=== PATIENT | male | born 1940 | race Caucasian/White ===

== ENCOUNTER 2017-12-09 20:48 | Inpatient (IN) | payer MEDICARE ==
[2017-12-09] MEDS ORDERED: IPRATROPIUM-ALBUTEROL 3 ML NEB INHALATION STA (21:46)
[2017-12-09] MEDS ORDERED: methylPREDNISolone SOD SUCCI 125 MG/2 ML VIAL IV STA (21:46)
--- NOTE | 2017-12-09 22:01 | ED ---
SOB HPI - General Chief Complaint: Shortness of Breath Stated Complaint: Pneumonia Time Seen by Provider: 12/09/17 21:31 Source: patient, Caregiver Mode of arrival: wheelchair Limitations: no limitations, physical limitation - History of Present Illness Initial Comments: 77-year-old male patient with past medical history significant for acute hypoxic respiratory failure, recent admission for pneumonia, heart failure, and myocardial infarction presents to the emergency department today for complaints of dyspnea. Patient states that he was released approximately one month ago from [facility] after being admitted for 1 month for pneumonia and respiratory failure. Patient states he did have MRSA positive sputum. Patient states for the last 2 weeks he has developed fevers, night sweats, and difficulty breathing. Patient states he is unable to lie flat due to shortness of breath. States that he does have stabbing chest pains that is relieved with ibuprofen. He is also reporting feeling fatigued and weak. Patient states he did go to urgent care today and had a chest x-ray, they told him that he had fluid on his lungs and pneumonia and presented to the emergency department. Patient denies any recent rash, shortness breath, abdominal pain, nausea, vomiting, diarrhea, constipation, back pain, numbness, tingling, dizziness, hematuria, dysuria, urinary urgency, urinary frequency, headache, visual changes , or any other complaints. - Related Data Home Medications Medication Instructions Recorded Confirmed Albuterol Nebulized [Ventolin 2.5 mg INHALATION Q6H 12/09/17 12/09/17 Nebulized] Ascorbic Acid [Vitamin C] 500 mg PO DAILY 12/09/17 12/09/17 Aspirin 81 mg PO DAILY 12/09/17 12/09/17 Finasteride [Proscar] 5 mg PO DAILY 12/09/17 12/09/17 Folic Acid 1 mg PO DAILY 12/09/17 12/09/17 Furosemide [Lasix] 20 mg PO DAILY 12/09/17 12/09/17 Meloxicam 15 mg PO DAILY 12/09/17 12/09/17 Tamsulosin HCl [Flomax] 0.4 mg PO DAILY 12/09/17 12/09/17 Allergies Allergy/AdvReac Type Severity Reaction Status Date / Time No Known Allergies Allergy Verified 12/09/17 21:04 Review of Systems ROS Statement: Those systems with pertinent positive or pertinent negative responses have been documented in the HPI. ROS Other: All systems not noted in ROS Statement are negative. Past Medical History Past Medical History: Heart Failure, Myocardial Infarction ([place]) Additional Past Medical History / Comment(s): resp failure, dvt, anemia History of Any Multi-Drug Resistant Organisms: MRSA Date of last positivie culture/infection: lungs 2018 Past Surgical History: No Surgical Hx Reported Past Psychological History: No Psychological Hx Reported Smoking Status: Never smoker Past Alcohol Use History: None Reported Past Drug Use History: None Reported - Past Family History Father History Unknown: Yes General Exam Limitations: no limitations, physical limitation General appearance: alert, in no apparent distress, other (This is a well- developed, well-nourished adult male patient in no acute distress. Vital signs upon presentation are temperature 98.7F, pulse 109, respirations 20, blood pressure 112/68, pulse ox 96% on room air.) Eye exam: Present: normal appearance, PERRL, EOMI. Absent: scleral icterus, conjunctival injection, periorbital swelling ENT exam: Present: normal exam, normal oropharynx, mucous membranes moist Respiratory exam: Present: respiratory distress, rales. Absent: normal lung sounds bilaterally, wheezes, rhonchi, stridor Cardiovascular Exam: Present: regular rate, normal rhythm, normal heart sounds. Absent: systolic murmur, diastolic murmur, rubs, gallop, clicks GI/Abdominal exam: Present: soft, normal bowel sounds. Absent: distended, tenderness, guarding, rebound, rigid Extremities exam: Present: full ROM, normal capillary refill, other (Bilateral lower extremity edema. 2+ pitting.). Absent: normal inspection, tenderness, pedal edema, joint swelling, calf tenderness Neurological exam: Present: alert, oriented X3, CN II-XII intact Psychiatric exam: Present: normal affect, normal mood Skin exam: Present: warm, dry, intact, normal color. Absent: rash Course Vital Signs 12/09/17 12/09/17 12/09/17 20:58 22:38 22:44 Temperature 98.7 F Pulse Rate 109 H 100 104 H Respiratory 20 Rate Blood Pressure 112/68 O2 Sat by Pulse 96 Oximetry 12/09/17 12/10/17 23:04 01:29 Temperature 98.1 F Pulse Rate 98 101 H Respiratory 26 H 20 Rate Blood Pressure 116/56 125/67 O2 Sat by Pulse 98 95 Oximetry Medical Decision Making - Medical Decision Making 77-year-old male patient presents the emergency department today for evaluation of shortness of breath and cough. Patient states he is also been feeling weak and fatigued. Patient was recently [facility] for pneumonia with MRSA positive sputum. States he was also anemic at that hospital and they were evaluating the cause. He was discharged 4 weeks ago. Labs today reveal a hemoglobin of 8.2 but other labs are relatively unremarkable. Chest x-ray did show pulmonary vascular congestion and blunting of the costophrenic angles consistent with congestive heart failure. There was also some concern for lower lobe pneumonia. Given patient's recent history we will start pneumonia with coverage for HCAP. We will give a dose of Lasix here in the department. Pulmonology and cardiology will be consulted. Patient is admitted to Dr. Chaney. Patient is aware plan and is agreeable. - Lab Data Result diagrams: 12/09/17 22:25 12/09/17 22:25 Lab Results 12/09/17 12/09/17 12/09/17 Range/Units 22:25 22:25 22:25 WBC 10.5 (3.8-10.6) k/uL RBC 3.44 L (4.30-5.90) m/uL Hgb 8.2 L (13.0-17.5) gm/dL Hct 27.0 L (39.0-53.0) % MCV 78.5 L (80.0-100.0) fL MCH 23.7 L (25.0-35.0) pg MCHC 30.2 L (31.0-37.0) g/dL RDW 17.5 H (11.5-15.5) % Plt Count 415 (150-450) k/uL Neutrophils % 61 % Lymphocytes % 11 % Monocytes % 6 % Eosinophils % 19 % Basophils % 1 % Neutrophils # 6.4 (1.3-7.7) k/uL Lymphocytes # 1.1 (1.0-4.8) k/uL Monocytes # 0.7 (0-1.0) k/uL Eosinophils # 2.0 H (0-0.7) k/uL Basophils # 0.1 (0-0.2) k/uL Hypochromasia Moderate Poikilocytosis Slight Anisocytosis Slight Microcytosis Slight PT (9.0-12.0) sec INR (<1.2) APTT (22.0-30.0) sec Sodium 141 (137-145) mmol/L Potassium 3.9 (3.5-5.1) mmol/L Chloride 108 H (98-107) mmol/L Carbon Dioxide 25 (22-30) mmol/L Anion Gap 8 mmol/L BUN 18 (9-20) mg/dL Creatinine 0.86 (0.66-1.25) mg/dL Est GFR (CKD-EPI)AfAm >90 (>60 ml/min/1.73 sqM) Est GFR (CKD-EPI)NonAf 83 (>60 ml/min/1.73 sqM) Glucose 119 H (74-99) mg/dL Plasma Lactic Acid Oli (0.7-2.0) mmol/L Calcium 8.7 (8.4-10.2) mg/dL Total Bilirubin 0.2 (0.2-1.3) mg/dL AST 32 (17-59) U/L ALT 37 (21-72) U/L Alkaline Phosphatase 52 (38-126) U/L Total Creatine Kinase 23 L (55-170) U/L CK-MB (CK-2) 1.0 (0.0-2.4) ng/mL CK-MB (CK-2) Rel Index 4.3 Troponin I <0.012 (0.000-0.034) ng/mL NT-Pro-B Natriuret Pep pg/mL Total Protein 6.3 (6.3-8.2) g/dL Albumin 2.9 L (3.5-5.0) g/dL Urine Color Urine Appearance (Clear) Urine pH (5.0-8.0) Ur Specific [place] (1.001-1.035) Urine Protein (Negative) Urine Glucose (UA) (Negative) Urine Ketones (Negative) Urine Blood (Negative) Urine Nitrite (Negative) Urine Bilirubin (Negative) Urine Urobilinogen (<2.0) mg/dL Ur Leukocyte Esterase (Negative) 12/09/17 12/09/17 12/09/17 Range/Units 22:25 22:25 22:25 WBC (3.8-10.6) k/uL RBC (4.30-5.90) m/uL Hgb (13.0-17.5) gm/dL Hct (39.0-53.0) % MCV (80.0-100.0) fL MCH (25.0-35.0) pg MCHC (31.0-37.0) g/dL RDW (11.5-15.5) % Plt Count (150-450) k/uL Neutrophils % % Lymphocytes % % Monocytes % % Eosinophils % % Basophils % % Neutrophils # (1.3-7.7) k/uL Lymphocytes # (1.0-4.8) k/uL Monocytes # (0-1.0) k/uL Eosinophils # (0-0.7) k/uL Basophils # (0-0.2) k/uL Hypochromasia Poikilocytosis Anisocytosis Microcytosis PT 11.2 (9.0-12.0) sec INR 1.2 H (<1.2) APTT 27.0 (22.0-30.0) sec Sodium (137-145) mmol/L Potassium (3.5-5.1) mmol/L Chloride (98-107) mmol/L Carbon Dioxide (22-30) mmol/L Anion Gap mmol/L BUN (9-20) mg/dL Creatinine (0.66-1.25) mg/dL Est GFR (CKD-EPI)AfAm (>60 ml/min/1.73 sqM) Est GFR (CKD-EPI)NonAf (>60 ml/min/1.73 sqM) Glucose (74-99) mg/dL Plasma Lactic Acid Oli 1.6 (0.7-2.0) mmol/L Calcium (8.4-10.2) mg/dL Total Bilirubin (0.2-1.3) mg/dL AST (17-59) U/L ALT (21-72) U/L Alkaline Phosphatase (38-126) U/L Total Creatine Kinase (55-170) U/L CK-MB (CK-2) (0.0-2.4) ng/mL CK-MB (CK-2) Rel Index Troponin I (0.000-0.034) ng/mL NT-Pro-B Natriuret Pep 766 pg/mL Total Protein (6.3-8.2) g/dL Albumin (3.5-5.0) g/dL Urine Color Urine Appearance (Clear) Urine pH (5.0-8.0) Ur Specific [place] (1.001-1.035) Urine Protein (Negative) Urine Glucose (UA) (Negative) Urine Ketones (Negative) Urine Blood (Negative) Urine Nitrite (Negative) Urine Bilirubin (Negative) Urine Urobilinogen (<2.0) mg/dL Ur Leukocyte Esterase (Negative) 12/09/17 Range/Units 23:30 WBC (3.8-10.6) k/uL RBC (4.30-5.90) m/uL Hgb (13.0-17.5) gm/dL Hct (39.0-53.0) % MCV (80.0-100.0) fL MCH (25.0-35.0) pg MCHC (31.0-37.0) g/dL RDW (11.5-15.5) % Plt Count (150-450) k/uL Neutrophils % % Lymphocytes % % Monocytes % % Eosinophils % % Basophils % % Neutrophils # (1.3-7.7) k/uL Lymphocytes # (1.0-4.8) k/uL Monocytes # (0-1.0) k/uL Eosinophils # (0-0.7) k/uL Basophils # (0-0.2) k/uL Hypochromasia Poikilocytosis Anisocytosis Microcytosis PT (9.0-12.0) sec INR (<1.2) APTT (22.0-30.0) sec Sodium (137-145) mmol/L Potassium (3.5-5.1) mmol/L Chloride (98-107) mmol/L Carbon Dioxide (22-30) mmol/L Anion Gap mmol/L BUN (9-20) mg/dL Creatinine (0.66-1.25) mg/dL Est GFR (CKD-EPI)AfAm (>60 ml/min/1.73 sqM) Est GFR (CKD-EPI)NonAf (>60 ml/min/1.73 sqM) Glucose (74-99) mg/dL Plasma Lactic Acid Oli (0.7-2.0) mmol/L Calcium (8.4-10.2) mg/dL Total Bilirubin (0.2-1.3) mg/dL AST (17-59) U/L ALT (21-72) U/L Alkaline Phosphatase (38-126) U/L Total Creatine Kinase (55-170) U/L CK-MB (CK-2) (0.0-2.4) ng/mL CK-MB (CK-2) Rel Index Troponin I (0.000-0.034) ng/mL NT-Pro-B Natriuret Pep pg/mL Total Protein (6.3-8.2) g/dL Albumin (3.5-5.0) g/dL Urine Color Yellow Urine Appearance Clear (Clear) Urine pH 5.0 (5.0-8.0) Ur Specific [place] 1.013 (1.001-1.035) Urine Protein Trace H (Negative) Urine Glucose (UA) Negative (Negative) Urine Ketones Negative (Negative) Urine Blood Negative (Negative) Urine Nitrite Negative (Negative) Urine Bilirubin Negative (Negative) Urine Urobilinogen <2.0 (<2.0) mg/dL Ur Leukocyte Esterase Negative (Negative) - EKG Data -: EKG Interpreted by Oh EKG Comments: EKG obtained at 2234 shows normal sinus rhythm. Ventricular rate is 97, IL interval 152, QR judaism 90, QT 368, QTC 467. No evidence of ST elevation or depression. - Radiology Data Radiology results: report reviewed, image reviewed Two-view x-ray of the chest is obtained. There is pulmonary vascular congestion. There is blunting of the costophrenic angles player there are chest leads. There is mild thoracic kyphosis. Impression by Dr. Zaman shows evidence of congestive heart failure. Lower lobe pneumonia as possible. Disposition Clinical Impression: CHF (congestive heart failure), Pneumonia Disposition: ADMITTED IP TO THIS [facility] Condition: Serious Decision to Admit Reason: Admit from EC Decision Date: 12/10/17 Decision Time: 01:14
[2017-12-09 22:49] LABS: Anisocytosis Slight; Basophils # (A) 0.1 k/uL (0-0.2); Basophils % (A) 1 %; Eosinophils % (A) 19 %; HGB 8.2 gm/dL (13.0-17.5); Hypochromasia Moderate; Lymphocytes # (A) 1.1 k/uL (1.0-4.8); Lymphocytes % (A) 11 %; MCH 23.7 pg (25.0-35.0); MCHC 30.2 g/dL (31.0-37.0); MCV 78.5 fL (80.0-100.0); Mean Platelet Volume 6.5; Microcytosis Slight; Monocytes # (A) 0.7 k/uL (0-1.0); Monocytes % (A) 6 %; Neutrophils # (A) 6.4 k/uL (1.3-7.7); Neutrophils % (A) 61 %; Platelet Count 415 k/uL (150-450); Poikilocytosis Slight; RBC 3.44 m/uL (4.30-5.90); RDW 17.5 % (11.5-15.5); WBC 10.5 k/uL (3.8-10.6)
[2017-12-09 23:00] LABS: ALT 37 U/L (21-72); AST 32 U/L (17-59); Albumin 2.9 g/dL (3.5-5.0); Alkaline Phosphatase 52 U/L (38-126); Anion Gap 8 mmol/L; Blood Urea Nitrogen 18 mg/dL (9-20); Calcium 8.7 mg/dL (8.4-10.2); Carbon Dioxide 25 mmol/L (22-30); Chloride 108 mmol/L (98-107); Glucose 119 mg/dL (74-99); Potassium 3.9 mmol/L (3.5-5.1); Sodium 141 mmol/L (137-145); Total Bilirubin 0.2 mg/dL (0.2-1.3); Total Protein 6.3 g/dL (6.3-8.2)
[2017-12-09 23:02] LABS: Creatine Kinase 23 U/L (55-170)
[2017-12-09 23:04] LABS: INR 1.2 (<1.2); Prothrombin Time 11.2 sec (9.0-12.0)
[2017-12-09 23:15] LABS: Troponin I <0.012 ng/mL (0.000-0.034)
--- NOTE | 2017-12-09 23:47 | XR ---
EXAMINATION TYPE: XR chest 2V DATE OF EXAM: 12/09/2017 COMPARISON: NONE HISTORY: Difficulty breathing TECHNIQUE: Frontal and lateral views of the chest are obtained. FINDINGS: There is pulmonary vascular congestion. There is blunting of the costophrenic angles. Ther e are chest leads. There is mild thoracic kyphosis. IMPRESSION: There is evidence of congestive heart failure. Lower lobe pneumonia is possible.
[2017-12-09 23:52] LABS: Appearance,Urine Clear (Clear); Bilirubin,Urine Negative (Negative); Blood,Urine Negative (Negative); Color,Urine Yellow; Glucose,Urine (UA) Negative (Negative); Ketones,Urine Negative (Negative); Leukocyte Esterase,Urine Negative (Negative); Nitrite,Urine Negative (Negative); Protein,Urine Trace (Negative); Specific Gravity,Urine 1.013 (1.001-1.035); Urobilinogen,Urine <2.0 mg/dL (<2.0)
[2017-12-10] MEDS ORDERED: PNEUMONIA PROTOCOL UTILIZED 1 EACH MISC PO PRN (01:05)
[2017-12-10] MEDS ORDERED: VANCOMYCIN IV PER PHARMACY 1 EACH MISC MISCELLANE PRN (01:07)
[2017-12-10] MEDS ORDERED: CEFEPIME 2 GM in SODIUM CHLORIDE 0.9% 50 ML IVPB STA (01:07)
[2017-12-10] MEDS ORDERED: LEVOFLOXACIN 750MG-D5W PMX 750 MG in DEXTROSE/WATER 1 150ML.BAG IVPB STA (01:10)
[2017-12-10] MEDS ORDERED: FUROSEMIDE 10 MG/ML 4 ML VIAL IV STA (01:14)
[2017-12-10] MEDS ORDERED: ALBUTEROL NEBULIZED 2.5 MG/3 ML INHALATION SCH (01:15)
[2017-12-10] MEDS ORDERED: IPRATROPIUM-ALBUTEROL 3 ML NEB INHALATION PRN (01:46)
[2017-12-10] MEDS ORDERED: VANCOMYCIN 1,500 MG in SODIUM CHLORIDE 0.9% 250 ML IVPB ONE (02:00)
[2017-12-10] MEDS: LEVOFLOXACIN 750MG-D5W PMX 750 MG in DEXTROSE/WATER 1 150ML.BAG IVPB SCH (05:12)
[2017-12-10] MEDS: IPRATROPIUM-ALBUTEROL 3 ML NEB INHALATION SCH ×4 (08:48→19:18)
[2017-12-10] MEDS ORDERED: IBUPROFEN 600 MG TAB PO SCH (09:00)
[2017-12-10] MEDS: ASPIRIN 81 MG PO SCH (09:13)
[2017-12-10] MEDS: ASCORBIC ACID 500 MG TAB PO SCH (09:13)
[2017-12-10] MEDS: TAMSULOSIN 0.4 MG CAP.ER.24H PO SCH (09:13)
[2017-12-10] MEDS: FINASTERIDE 5 MG TAB PO SCH (09:13)
[2017-12-10] MEDS: FOLIC ACID 1 MG TAB PO SCH (09:13)
[2017-12-10] MEDS: MELOXICAM 7.5 MG TAB PO SCH (09:13)
[2017-12-10] MEDS: CEFEPIME 2 GM in SODIUM CHLORIDE 0.9% 50 ML IVPB SCH ×2 (09:15→17:44)
--- NOTE | 2017-12-10 11:30 | US ---
EXAMINATION TYPE: US venous doppler duplex LE LT DATE OF EXAM: 12/10/2017 10:56 AM COMPARISON: NONE CLINICAL HISTORY: lower ext swelling. Patient stated has had left leg swelling x >6 months and possib le COPD SIDE PERFORMED: Left TECHNIQUE: The lower extremity deep venous system is examined utilizing real time linear array sonog jose with graded compression, doppler sonography and color-flow sonography. VESSELS IMAGED: Common Femoral Vein Deep Femoral Vein Greater Saphenous Vein * Femoral Vein Popliteal Vein Small Saphenous Vein * Proximal Calf Veins (* superficial vessels) Left Leg: Negative for DVT IMPRESSION: 1. Left lower extremity venous ultrasound negative for deep venous thrombosis.
--- NOTE | 2017-12-10 12:36 | ECHOF ---
Referral Reason:sob MEASUREMENTS -------- HEIGHT: 170.2 cm WEIGHT: 69.4 kg BP: 120/76 IVSd: 1.2 cm (0.6 - 1.1) LVIDd: 3.7 cm (3.9 - 5.3) LVPWd: 1.2 cm (0.6 - 1.1) IVSs: 1.4 cm LVIDs: 2.6 cm LVPWs: 1.4 cm LAESV Index (A-L): 55.63 ml/m Ao Diam: 4.5 cm (2.0 - 3.7) AV Cusp: 1.5 cm (1.5 - 2.6) LA Diam: 2.9 cm (2.7 - 3.8) MV E Juan: 0.74 m/s MV DecT: 257 ms MV A Juan: 1.20 m/s MV E/A Ratio: 0.62 RAP: 5.00 mmHg RVSP: 10.33 mmHg FINDINGS -------- Sinus rhythm. This was a technically adequate study. The left ventricular size is normal. There is mild concentric left ventricular hypertrophy. Overa ll left ventricular systolic function is low-normal with, an EF between 50 - 55 %. The right ventricle is normal in size and function. LA is severely dilated >40 ml/m2 The right atrium is normal in size. There is mild aortic valve sclerosis. There is no evidence of aortic regurgitation. There is no e vidence of aortic stenosis. Mild mitral annular calcification present. Moderate mitral regurgitation is present. Trace tricuspid regurgitation present. Right ventricular systolic pressure is normal at < 35 mmHg. There is no evidence of pulmonary hypertension. The pulmonic valve was not well visualized. The aortic root is borderline dilated, up to 3.6 cm. The inferior vena cava is dilated with poor inspiratory collapse which is consistent with estimated r ight atrial pressure of 20 mmHg. There is no pericardial effusion. CONCLUSIONS -------- 1. Sinus rhythm. 2. This was a technically adequate study. 3. The left ventricular size is normal. 4. There is mild concentric left ventricular hypertrophy. 5. Overall left ventricular systolic function is low-normal with, an EF between 50 - 55 %. 6. LA is severely dilated >40 ml/m2 7. There is mild aortic valve sclerosis. 8. Mild mitral annular calcification present. 9. Moderate mitral regurgitation is present. 10. Trace tricuspid regurgitation present. 11. Right ventricular systolic pressure is normal at < 35 mmHg. 12. There is no evidence of pulmonary hypertension. 13. The pulmonic valve was not well visualized. 14. The aortic root is borderline dilated, up to 3.6 cm. 15. The inferior vena cava is dilated with poor inspiratory collapse which is consistent with estimat ed right atrial pressure of 20 mmHg. 16. There is no pericardial effusion. CLOSER ON: Shane Loera RDCS
--- NOTE | 2017-12-10 12:58 | P.CNPUL ---
History of Present Illness Consult date: 12/10/17 Requesting physician: Yan Chaney Reason for consult: dyspnea Chief complaint: Shortness of breath History of present illness: This is a pleasant 77-year-old gentleman who follows with Dr. Gonzalez as his primary care physician. He has a history of myocardial infarction, congestive heart failure, DVT, recent admission to [facility] for MRSA pneumonia with an extended stay subsequent transfer to inpatient rehabilitation and then discharged home. He states he's been home approximately 1 month and had developed increasing shortness breath weakness chest pain was seen by his PCP yesterday and referred here for the same. He states he was told he has fluid in his lungs and pneumonia. His chest x-ray does show evidence of congestive heart failure and some left lower lobe opacity. He has been afebrile. Maintaining O2 saturations in the 90s on room air. White count 10.5. Hemoglobin 8.2. Creatinine 0.86. ProBNP 766. He has been initiated on Lasix 40 mg every 12 hours. Echocardiogram revealed preserved left ventricular systolic function with ejection fraction 50-55%. No pulmonary hypertension. Doppler of the lower extremities negative. Patient is a lifelong nonsmoker. No previous pulmonary issues prior to his recent admission. From there he was discharged home on Symbicort and albuterol. Review of Systems Constitutional: Reports poor appetite, Reports weakness Eyes: denies blurred vision, denies decreased vision Ears: bilateral: decreased hearing Ears, nose, mouth and throat: Denies headache, Denies sore throat Cardiovascular: Reports decreased exercise tolerance, Reports dyspnea on exertion, Reports orthopnea, Reports shortness of breath Respiratory: Reports cough, Reports dyspnea Gastrointestinal: Reports loss of appetite Genitourinary: Reports as per HPI Musculoskeletal: Reports low back pain Musculoskeletal: left: foot pain Integumentary: Reports color changes Neurological: Reports weakness Psychiatric: Reports difficulty concentrating Endocrine: Reports fatigue Hematologic/Lymphatic: Reports as per HPI Allergic/Immunologic: Reports as per HPI Past Medical History Past Medical History: Heart Failure, Myocardial Infarction ([place]) Additional Past Medical History / Comment(s): resp failure, dvt, anemia History of Any Multi-Drug Resistant Organisms: MRSA Date of last positivie culture/infection: lungs 2018 MDRO Source:: sputum Past Surgical History: No Surgical Hx Reported Past Anesthesia/Blood Transfusion Reactions: No Reported Reaction Past Psychological History: No Psychological Hx Reported Smoking Status: Never smoker Past Alcohol Use History: None Reported Past Drug Use History: None Reported - Past Family History Father History Unknown: Yes Medications and Allergies Home Medications Medication Instructions Recorded Confirmed Type Albuterol Nebulized [Ventolin 2.5 mg INHALATION RT-Q6H 12/09/17 12/10/17 History Nebulized] Ascorbic Acid [Vitamin C] 500 mg PO DAILY 12/09/17 12/09/17 History Aspirin 81 mg PO DAILY 12/09/17 12/09/17 History Finasteride [Proscar] 5 mg PO DAILY 12/09/17 12/10/17 History Folic Acid 1 mg PO DAILY 12/09/17 12/09/17 History Furosemide [Lasix] 20 mg PO DAILY 12/09/17 12/10/17 History Meloxicam 15 mg PO DAILY 12/09/17 12/10/17 History Tamsulosin HCl [Flomax] 0.4 mg PO DAILY 12/09/17 12/10/17 History Budesonide/Formoterol Fumarate 2 puff INHALATION RT-BID 12/10/17 12/10/17 History [Symbicort 160-4.5 Mcg Inhaler] Ferrous Sulfate [Feosol] 325 mg PO BID 12/10/17 12/10/17 History Allergies Allergy/AdvReac Type Severity Reaction Status Date / Time No Known Allergies Allergy Verified 12/09/17 21:04 Physical Exam Vitals: Vital Signs Temp Pulse Pulse Pulse Resp BP BP 12/10/17 07:00 98.6 F 92 18 120/76 12/10/17 04:23 98.0 F 102 H 16 131/81 12/10/17 01:29 98.1 F 101 H 20 125/67 12/09/17 23:04 98 26 H 116/56 12/09/17 22:44 104 H 12/09/17 22:38 100 12/09/17 20:58 98.7 F 109 H 20 112/68 Pulse Ox 12/10/17 07:00 92 L 12/10/17 04:23 92 L 12/10/17 01:29 95 12/09/17 23:04 98 12/09/17 22:44 12/09/17 22:38 12/09/17 20:58 96 Intake and Output 12/09/17 12/10/17 12/10/17 22:59 06:59 14:59 Intake Total 120 Output Total 950 Balance -830 Intake: Oral 120 Output: Urine 950 Other: Voiding Method Urinal # Bowel Movements 1 Weight 80.739 kg 69.5 kg - Constitutional General appearance: average body habitus, disheveled, no acute distress - EENT Eyes: EOMI, PERRLA ENT: hard of hearing Ears: bilateral: normal - Neck Neck: normal ROM Carotids: bilateral: upstroke normal Thyroid: bilateral: normal size - Respiratory Respiratory: left: rhonchi, bilateral: rales - Cardiovascular Rhythm: regular Heart sounds: normal: S1, S2 - Gastrointestinal General gastrointestinal: normal bowel sounds - Integumentary Integumentary: normal turgor - Neurologic Neurologic: CNII-XII intact - Musculoskeletal Musculoskeletal: generalized weakness - Psychiatric Psychiatric: A&O x's 3, appropriate affect, intact judgment & insight Results - Laboratory Findings CBC and BMP: 12/09/17 22:25 12/09/17 22:25 PT/INR, D-dimer PT 11.2 sec (9.0-12.0) 12/09/17 22:25 INR 1.2 (<1.2) H 12/09/17 22:25 D-Dimer 4.30 mg/L FEU (<0.60) H 12/10/17 09:38 Abnormal lab findings: Abnormal Labs 12/09/17 12/09/17 12/09/17 22:25 22:25 22:25 RBC 3.44 L Hgb 8.2 L Hct 27.0 L MCV 78.5 L MCH 23.7 L MCHC 30.2 L RDW 17.5 H Eosinophils # 2.0 H INR D-Dimer Chloride 108 H Glucose 119 H Total Creatine Kinase 23 L Albumin 2.9 L Urine Protein 12/09/17 12/09/17 12/10/17 22:25 23:30 09:38 RBC Hgb Hct MCV MCH MCHC RDW Eosinophils # INR 1.2 H D-Dimer 4.30 H Chloride Glucose Total Creatine Kinase Albumin Urine Protein Trace H - Diagnostic Findings Chest x-ray: image reviewed Assessment and Plan Assessment: Impression: #1 Dyspnea, multifactorial secondary to acute exacerbation of diastolic congestive heart failure, left lower lobe infiltrate with recent history of MRSA pneumonia, anemia. Suspect possible healthcare acquired pneumonia #2 Anemia of unclear etiology. Current hemoglobin 8.2. #3 Left lower extremity edema, negative for DVT. #4 Recent prolonged hospitalization for acute respiratory failure secondary to MRSA pneumonia. #5 History of myocardial infarction. #6 History of congestive heart failure. Plan: The patient was seen and evaluated by Dr. Murillo. Chest x-ray and labs were reviewed. Continue with bronchodilators, antibiotics in the form of vancomycin , cefepime and Levaquin. He is being diuresed as well. Currently in a negative balance. We will obtain records from his recent admission from a [facility]. We will repeat a chest x-ray in the a.m. We'll increase his activity as tolerated. We will continue to follow and make further recommendations based on his clinical status. I, the cosigning physician, performed a history & physical examination of the patient. Lungs sounds with faint crackles in the posterior bases more so on the left. Maintaining good O2 saturations in the 90s on room air. I discussed the assessment and plan of care with my nurse practitioner, Stephania Rose. I attest to the above consultation as dictated by her. Time with Patient: Greater than 30
[2017-12-10] MEDS: VANCOMYCIN 1,250 MG in SODIUM CHLORIDE 0.9% 250 ML IVPB SCH (13:40)
--- NOTE | 2017-12-10 13:42 | P.CRDCN ---
History of Present Illness History of present illness: Mr. Erazo is a pleasant 77-year-old male past medical history significant for heart failure unknown type, recent respiratory failure secondary to pneumonia and mucous plugging with recent hospitalization at [facility] for 3 weeks he was discharged on October 22 to rehab recent discharge from rehab to home, DVT, anemia, nicotine dependence and MRSA in the past. He denies history of coronary artery disease. He states he has never seen a compliance coordinator until last time he was admitted in the hospital at [place]. We have been asked to see him in consultation for symptoms of heart failure. He presented to the hospital with increased shortness of breath, cough and orhopnea. He states this has been getting progressively worse over the last few days with pleuritic pain. At the time of my exam he is seen sitting up in bed in no acute distress however he is sitting straight up and leaning forward at times to catch his breath. He states he has been having to sleep sitting up so he can breath. He denies palpitations, dizziness, nausea, vomiting or diaphoresis. EKG reveals sinus mechanism with inferior T-wave abnormalities. No old EKG for comparison. Chest xray indicated left lower lobe opacity with pulmonary vascular congestion. Laboratory data reviewed, hgb 8.2, plt 415, sodium 141, potassium 3.9, proBNP 766, creatinine 0.86, cardiac enzymes negative x1, d-dimer 4.3. Current cardiac medications include aspirin 81 mg daily, Lasix 20 mg daily. Echocardiogram obtained at [facility] reveals preserved left ventricular systolic function with ejection fraction 55-60%, mild right atrial dilation, moderate to severe left atrial dilation, moderately thickened mitral valve with mild to moderate MR, diffuse sclerosis of the aortic valve with no stenosis and mild aortic regurgitation, mildly dilated aortic root of 4.2 cm. Review of Systems At the time of my exam: CONSTITUTIONAL: Denies fever. Denies chills. EYES: Denies blurred vision. Denies vision changes. Denies eye pain. EARS, NOSE, MOUTH & THROAT: Denies headache. Denies sore throat. Denies ear pain. CARDIOVASCULAR: Denies chest pain. Complains of shortness of breath and orthopnea. Denies PND. Denies palpitations. RESPIRATORY: Complains of frequent and productive cough. GASTROINTESTINAL: Denies abdominal pain. Denies diarrhea. Denies constipation. Denies nausea. Denies vomiting. MUSCULOSKELETAL: Denies myalgias. INTEGUMENTARY: Denies pruitis. Denies rash. NEUROLOGIC: Denies numbness. Denies tingling. Denies weakness. PSYCHIATRIC: Denies anxiety. Denies depression. ENDOCRINE: Denies fatigue. Denies weight change. Denies polydipsia. Denies polyurina. GENITOURINARY: Denies burning, hematuria or urgency with micturation. HEMATOLOGIC: Denies history of anemia. Denies bleeding. Past Medical History Past Medical History: Heart Failure, Myocardial Infarction ([place]) Additional Past Medical History / Comment(s): resp failure, dvt, anemia History of Any Multi-Drug Resistant Organisms: MRSA Date of last positivie culture/infection: lungs 2018 MDRO Source:: sputum Past Surgical History: No Surgical Hx Reported Past Anesthesia/Blood Transfusion Reactions: No Reported Reaction Past Psychological History: No Psychological Hx Reported Smoking Status: Never smoker Past Alcohol Use History: None Reported Past Drug Use History: None Reported - Past Family History Father History Unknown: Yes Medications and Allergies Home Medications Medication Instructions Recorded Confirmed Type Albuterol Nebulized [Ventolin 2.5 mg INHALATION RT-Q6H 12/09/17 12/10/17 History Nebulized] Ascorbic Acid [Vitamin C] 500 mg PO DAILY 12/09/17 12/09/17 History Aspirin 81 mg PO DAILY 12/09/17 12/09/17 History Finasteride [Proscar] 5 mg PO DAILY 12/09/17 12/10/17 History Folic Acid 1 mg PO DAILY 12/09/17 12/09/17 History Furosemide [Lasix] 20 mg PO DAILY 12/09/17 12/10/17 History Meloxicam 15 mg PO DAILY 12/09/17 12/10/17 History Tamsulosin HCl [Flomax] 0.4 mg PO DAILY 12/09/17 12/10/17 History Budesonide/Formoterol Fumarate 2 puff INHALATION RT-BID 12/10/17 12/10/17 History [Symbicort 160-4.5 Mcg Inhaler] Ferrous Sulfate [Feosol] 325 mg PO BID 12/10/17 12/10/17 History Allergies Allergy/AdvReac Type Severity Reaction Status Date / Time No Known Allergies Allergy Verified 12/09/17 21:04 Physical Exam Vitals: Vital Signs Temp Pulse Pulse Pulse Resp BP BP 12/10/17 07:00 98.6 F 92 18 120/76 12/10/17 04:23 98.0 F 102 H 16 131/81 12/10/17 01:29 98.1 F 101 H 20 125/67 12/09/17 23:04 98 26 H 116/56 12/09/17 22:44 104 H 12/09/17 22:38 100 12/09/17 20:58 98.7 F 109 H 20 112/68 Pulse Ox 12/10/17 07:00 92 L 12/10/17 04:23 92 L 12/10/17 01:29 95 12/09/17 23:04 98 12/09/17 22:44 12/09/17 22:38 12/09/17 20:58 96 Intake and Output 12/09/17 12/10/17 12/10/17 22:59 06:59 14:59 Intake Total 120 Output Total 950 Balance -830 Intake: Oral 120 Output: Urine 950 Other: Voiding Method Urinal # Bowel Movements 1 Weight 80.739 kg 69.5 kg Blood pressure 120/76 heart rate 92 afebrile maintaining oxygen saturation GENERAL: This is a 77-year-old male in no apparent distress at the time of my examination. HEENT: Head is atraumatic, normocephalic. Pupils are equal, round. Sclerae anicteric. Conjunctivae are clear. Mucous membranes of the mouth are moist. Neck is supple. There is no jugular venous distention. No carotid bruit is heard. LUNGS: Bibasilar rales noted. Diminished bilaterally. No wheezes or rhonchi. No chest wall tenderness is noted on palpation or with deep breathing. HEART: Regular rate and rhythm with systolic ejection murmur at the base, no rubs or gallops. S1 and S2 heard. ABDOMEN: Soft, nontender. Bowel sounds are heard. No organomegaly noted. EXTREMITIES: Left lower extremity 2+ pitting edema, right lower extremity no edema noted. Discoloration noted bilaterally. No calf tenderness noted. VASCULAR: Radial and dorsalis pedis pulses palpated, no evidence of clubbing. NEUROLOGIC: Patient is awake, alert and oriented x3. Results 12/09/17 22:25 12/09/17 22:25 Cardiac Enzymes 12/09/17 12/09/17 Range/Units 22:25 22:25 AST 32 (17-59) U/L CK-MB (CK-2) 1.0 (0.0-2.4) ng/mL Troponin I <0.012 (0.000-0.034) ng/mL Coagulation 12/09/17 Range/Units 22:25 PT 11.2 (9.0-12.0) sec APTT 27.0 (22.0-30.0) sec CBC 12/09/17 Range/Units 22:25 WBC 10.5 (3.8-10.6) k/uL RBC 3.44 L (4.30-5.90) m/uL Hgb 8.2 L (13.0-17.5) gm/dL Hct 27.0 L (39.0-53.0) % Plt Count 415 (150-450) k/uL Comprehensive Metabolic Panel 12/09/17 Range/Units 22:25 Sodium 141 (137-145) mmol/L Potassium 3.9 (3.5-5.1) mmol/L Chloride 108 H (98-107) mmol/L Carbon Dioxide 25 (22-30) mmol/L BUN 18 (9-20) mg/dL Creatinine 0.86 (0.66-1.25) mg/dL Glucose 119 H (74-99) mg/dL Calcium 8.7 (8.4-10.2) mg/dL AST 32 (17-59) U/L ALT 37 (21-72) U/L Alkaline Phosphatase 52 (38-126) U/L Total Protein 6.3 (6.3-8.2) g/dL Albumin 2.9 L (3.5-5.0) g/dL Current Medications Generic Name Dose Route Start Last Admin Trade Name Freq PRN Reason Stop Dose Admin Albuterol/Ipratropium 3 ml 12/10/17 08:00 12/10/17 11:12 Duoneb 0.5 Mg-3 Mg/3 Ml Soln INHALATION Not Given RT-QID JOSHUA Albuterol/Ipratropium 3 ml 12/10/17 01:46 Duoneb 0.5 Mg-3 Mg/3 Ml Soln INHALATION RT-Q2H PRN Shortness Of Breath Or Wheezing Ascorbic Acid 500 mg 12/10/17 09:00 12/10/17 09:13 Vitamin C PO 500 mg DAILY JOSHUA Administration Aspirin 81 mg 12/10/17 09:00 12/10/17 09:13 Aspirin PO 81 mg DAILY JOSHUA Administration Finasteride 5 mg 12/10/17 09:00 12/10/17 09:13 Proscar PO 5 mg DAILY JOSHUA Administration Folic Acid 1 mg 12/10/17 12:00 12/10/17 09:13 Folic Acid PO 1 mg DAILY@1200 JOSHUA Administration Furosemide 40 mg 12/10/17 21:00 Lasix IV Q12HR JOSHUA Cefepime HCl 2 gm/ Sodium 50 mls @ 100 mls/hr 12/10/17 10:00 12/10/17 09:15 Chloride IVPB 100 mls/hr Q8H JOSHUA Administration Levofloxacin 750 mg/ IV 150 mls @ 100 mls/hr 12/10/17 05:00 12/10/17 05:12 Solution IVPB 100 mls/hr Q24H JOSHUA Administration Vancomycin HCl 1,250 mg/ 250 mls @ 125 mls/hr 12/10/17 14:00 Sodium Chloride IVPB Q12H JOSHUA Meloxicam 15 mg 12/10/17 09:00 12/10/17 09:13 Mobic PO 15 mg DAILY JOSHUA Administration Miscellaneous Information 1 each 12/10/17 01:05 Pneumonia Protocol Utilized PO ONCE PRN Per Protocol Miscellaneous Information 1 each 12/10/17 01:07 Pharmacy To Dose Iv Vancomycin MISCELLANE DIRECTED PRN Per Protocol Tamsulosin HCl 0.4 mg 12/10/17 09:00 12/10/17 09:13 Flomax PO 0.4 mg DAILY JOSHUA Administration Intake and Output 12/09/17 12/10/17 12/10/17 22:59 06:59 14:59 Intake Total 120 Output Total 950 Balance -830 Intake: Oral 120 Output: Urine 950 Other: Voiding Method Urinal # Bowel Movements 1 Weight 80.739 kg 69.5 kg 12/09/17 22:25 12/09/17 22:25 Assessment and Plan Assessment: ASSESSMENT Acute on chronic diastolic heart failure with preserved EF. Left lower lobe pneumonia Elevated d-dimer Microcytic hypochromic anemia History of lyme disease PLAN Obtain 2D echocardiogram and doppler study to assess cardiac structure and function. Doppler of left lower extremity ordered this morning is negative for DVT. Check magnesium and another troponin level to rule out an acute coronary event. Obtain CTA chest for PE secondary to elevated d-dimer and shortness of breath. Initiate on lasix 40 mg IV BID. Obtain daily weights and document accurate intake/output. Repeat EKG and apply monitor and storage bin tender. Records requested from [facility] have been reviewed. Ongoing medical management of pneumonia. Further recommendations to follow based on clinical course. Thank you kindly for this consultation. The above impression and plan of care have been discussed and directed by the signing physician. Zeina Payan, nurse practitioner, acting as scribe for signing physician.
--- NOTE | 2017-12-10 15:45 | CT ---
"EXAMINATION TYPE: CT angio chest DATE OF EXAM: 12/10/2017 COMPARISON: NONE HISTORY: Chest pain, shortness of breath and elevated d-dimer. CT DLP: 254 mGycm. Automated Exposure Control for Dose Reduction was Utilized. CONTRAST: CTA scan of the thorax is performed with IV Contrast, patient injected with 100 mL of Isovue 370, pul monary embolism protocol. MIP Images are created on CT scanner and reviewed. FINDINGS: LUNGS: There are small bilateral pleural effusions with slightly loculated component at the medial ri ght upper lung. Solid 4 mm right apical pulmonary nodule seen on series 7 image 34. Calcified right a pical granuloma is present on image 33. Diffuse groundglass opacity within the anterior right upper l obe is suspicious for pneumonia with adjacent pleural thickening and series 7 image 70. Subpleural re ticulation and scattered groundglass opacities as well as honeycombing at the lung bases represent un derlying fibrosis superimposed upon paraseptal emphysematous change. 2 mm subpleural anterior left up per lobe pulmonary nodule seen in series 7 image 66 and is solid in nature. 5 mm pulmonary nodules al so seen along the subpleural surface of the left upper lobe on series 7 image 76. MEDIASTINUM: There is suboptimal enhancement of the pulmonary artery and its branches, however there appears to be multiple right lower lobe and left upper lobe segmental as well as subsegmental pulmona ry emboli. The right ventricular to left ventricular ratio is normal. Main pulmonary artery is upper limits of normal measuring approximately 3.1 cm. Mediastinal lymphadenopathy is seen with a subcarina l lymph node measuring 1.0 cm, precarinal lymph node measuring 1.1 cm, and right paratracheal lymph n ode measuring 1.2 cm on short axis. Prominent left axillary lymph nodes are also seen measuring up to 1.1 cm on series 6 image 27. The heart is enlarged without pericardial effusion. Moderate coronary a rtery calcifications are present. OTHER: Left thyroid lobe appears atrophic or surgically absent with hypertrophy of the right thyroid lobe. Multilevel moderate degenerative change of the thoracic spine with exaggerated thoracic kyphosi s is seen. IMPRESSION: 1. Although the contrast was is suboptimal findings are highly suspicious for multiple segmental and subsegmental left upper lobe and right lower lobe pulmonary emboli. If there is no convincing clinica l evidence to support these findings short-term repeat imaging could be performed. 2. Anterior segment right upper lobe groundglass opacity suspicious for pneumonia. 3. Small pleural effusions, right apical loculation. 4. Findings suggestive of underlying pulmonary fibrosis and mild paraseptal emphysematous change. A Yellow level critical message alert has been initiated for Yan Chaney MD via the E-Sign 36 0 | Critical Results System on 12/10/2017 3:43 PM. This message alert has been sent to Yan Chaney MD via the preferences provided by the clinician for the receipt of Radiology Critical Findings. Mess age ID [id number]."
[2017-12-10] MEDS: ENOXAPARIN 100 MG/ML SYRINGE SQ SCH (17:45)
--- NOTE | 2017-12-10 18:44 | HP ---
HISTORY AND PHYSICAL DATE OF ADMISSION: 12/10/2017 PRESENTING COMPLAINT: Short of breath, cough. HISTORY OF PRESENTING COMPLAINT: This is a very pleasant 77-year-old patient who is a bit hard of hearing. He follows with Dr. Ponce Gonzalez out of [facility]. The patient a short time ago was at [facility], where he was treated for CHF pneumonia. The patient also has chronic stable medical conditions that include coronary artery disease. He had had DVT and rheumatoid arthritis in the hands. Patient presents with a few days of increasing cough, though cough is clear. Patient has been having some chunks in the sputum; also having episodes of perspiration and chills, decreased appetite, tired and rundown. Patient does have bowel movements. Does feel weak and tired. Also edema of the lower extremities. Patient was felt to have a combination of CHF, pneumonia, admitted for the same. Patient has perked up a bit on his appetite since he has been here. REVIEW OF SYSTEMS: CONSTITUTIONAL: Tired. Loss of appetite. HEENT: Decreased hearing. RESPIRATORY: As above. CARDIOVASCULAR: As above. No chest pain. GASTROINTESTINAL: None. GENITOURINARY: None. MUSCULOSKELETAL: Arthritic pain in the joints, especially in the hands. DERMATOLOGICAL: None. HEMATOLOGICAL: None. LYMPHATICS: None. PSYCHIATRY: None. NEUROLOGICAL: None. PAST MEDICAL HISTORY: 1. Congestive heart failure. 2. Coronary artery disease. 3. DVT. 4. Anemia. PAST SURGICAL HISTORY: None. SOCIAL HISTORY: Lives with his daughter and . Does not smoke. No alcohol. Used to work on trees. FAMILY HISTORY: Reviewed; noncontributory to presentation. HOME MEDICATIONS: 1. Flomax 0.4 mg a day. 2. Meloxicam 15 mg a day. 3. Lasix 20 mg a day. 4. Proscar 5 mg a day. 5. Iron 325 p.o. b.i.d. 6. Symbicort 160/4.5 two puffs b.i.d. 7. Ventolin 2.5 q.6. 8. Folic acid 1 mg a day. 9. Aspirin 81 mg a day. 10.Vitamin C 500 mg a day. ALLERGIES: NONE. PHYSICAL EXAMINATION: VITAL SIGNS ON PRESENTATION: Temperature 98.7, pulse 109, respiration 20, blood pressure 102/68, pulse ox 96% on room air. GENERAL APPEARANCE: Average build. Sitting up on a chair, tired-appearing. EYES: Pupils equal. Conjunctivae normal. HEENT: External appearance of nose and ears normal. Oral cavity dry. Decreased hearing. NECK: JVD not raised. Mass not palpable. RESPIRATORY: Effort increased. LUNGS: Diminished breath sounds. Some crackles. CARDIOVASCULAR: First and second sounds normal. Edema present. ABDOMEN: Soft, nontender. Liver and spleen not palpable. LYMPHATIC: No lymph node palpable in neck or axillae. PSYCHIATRY: Alert and oriented x3. Mood and affect normal. NEUROLOGICAL: Pupils equal. Cranial nerves grossly intact. Power and sensation grossly intact. MUSCULOSKELETAL: Evidence of ulnar division of the fingers, prominent metacarpophalangeal joints. INVESTIGATIONS: White count 10.5, hemoglobin 8.2, platelets 415, potassium 3.9. BUN and creatinine are normal. Troponin x2 negative. Chest x-ray shows some scattered infiltrates, venous prominence and bilateral effusion. Chest x-ray film was interpreted by me. EKG tracing interpreted by me shows sinus rhythm and non-specific changes. Two-D echocardiogram from this morning shows EF of 50% to 55%, moderate mitral regurgitation. Venous Doppler negative for DVT. Chest CTA highly suspicious for multiple segmental substernal left upper lobe and right lower lobe pulmonary emboli. ASSESSMENT: 1. Acute bilateral pulmonary embolism in a patient who is negative for deep venous thrombosis who has had a rather protracted hospital course, at least a month recently. 2. Possibly acute congestive heart failure exacerbation from diastolic dysfunction, ejection fraction 55% to 60%. 3. Moderate mitral regurgitation, non-rheumatic. 4. Rheumatoid arthritis bilaterally of both the hands. 5. Pneumonia, patchy; suspect gram-negative organism. 6. Hard of hearing. 7. Coronary artery disease with prior history of myocardial infarction. 8. Microcytic anemia, cause undetermined. 9. Benign prostatic hypertrophy. PLAN: For pulmonary embolism I started the patient on Lovenox 1.5 mg/kg; that is 100 mg Lovenox per day. Patient is on also IV Levaquin, vancomycin, cefepime. Given the recent stay in the hospital, patient is to be covered for different organisms. Also on bronchodilators. Cardiology was consulted, who also has the patient on IV Lasix. Electrolytes will be followed closely. Prognosis guarded. MMODL / IJN: [id number] /
[2017-12-10] MEDS: FUROSEMIDE 10 MG/ML 4 ML VIAL IV SCH (21:07)
[2017-12-11] MEDS: CEFEPIME 2 GM in SODIUM CHLORIDE 0.9% 50 ML IVPB SCH ×3 (01:28→17:40)
[2017-12-11] MEDS: VANCOMYCIN 1,250 MG in SODIUM CHLORIDE 0.9% 250 ML IVPB SCH ×2 (01:30→13:34)
[2017-12-11] MEDS: LEVOFLOXACIN 750MG-D5W PMX 750 MG in DEXTROSE/WATER 1 150ML.BAG IVPB SCH (06:05)
[2017-12-11] MEDS: IPRATROPIUM-ALBUTEROL 3 ML NEB INHALATION SCH ×4 (07:28→19:43)
[2017-12-11] MEDS: ENOXAPARIN 100 MG/ML SYRINGE SQ SCH (07:59)
[2017-12-11] MEDS: FUROSEMIDE 10 MG/ML 4 ML VIAL IV SCH ×2 (07:59→21:08)
[2017-12-11] MEDS: ASPIRIN 81 MG PO SCH (07:59)
[2017-12-11] MEDS: FINASTERIDE 5 MG TAB PO SCH (08:00)
[2017-12-11] MEDS: MELOXICAM 7.5 MG TAB PO SCH (08:00)
[2017-12-11] MEDS: ASCORBIC ACID 500 MG TAB PO SCH (08:00)
[2017-12-11] MEDS: TAMSULOSIN 0.4 MG CAP.ER.24H PO SCH (08:01)
[2017-12-11 08:22] LABS: Anion Gap 9 mmol/L; Blood Urea Nitrogen 26 mg/dL (9-20); Carbon Dioxide 23 mmol/L (22-30); Chloride 108 mmol/L (98-107); Glucose 148 mg/dL (74-99); Potassium 4.1 mmol/L (3.5-5.1); Sodium 140 mmol/L (137-145)
[2017-12-11] MEDS: FOLIC ACID 1 MG TAB PO SCH (11:25)
--- NOTE | 2017-12-11 13:24 | P.PN ---
Subjective Progress Note Date: 12/11/17 This is a pleasant 77-year-old gentleman who follows with Dr. Gonzalez as his primary care physician. He has a history of myocardial infarction, congestive heart failure, DVT, recent admission to [facility] for MRSA pneumonia with an extended stay subsequent transfer to inpatient rehabilitation and then discharged home. He states he's been home approximately 1 month and had developed increasing shortness breath weakness chest pain was seen by his PCP yesterday and referred here for the same. He states he was told he has fluid in his lungs and pneumonia. His chest x-ray does show evidence of congestive heart failure and some left lower lobe opacity. He has been afebrile. Maintaining O2 saturations in the 90s on room air. White count 10.5. Hemoglobin 8.2. Creatinine 0.86. ProBNP 766. He has been initiated on Lasix 40 mg every 12 hours. Echocardiogram revealed preserved left ventricular systolic function with ejection fraction 50-55%. No pulmonary hypertension. Doppler of the lower extremities negative. Patient is a lifelong nonsmoker. No previous pulmonary issues prior to his recent admission. From there he was discharged home on Symbicort and albuterol. On today's evaluation of 12/11/2017. The patient is having a congested cough and he is bringing up some yellow sputum. No hemoptysis. No pleurisy. He has chronic edema of the left lower extremity and currently is on diuretics. 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 He is a lifetime nonsmoker. The patient denies having any chest pain. No fever or chills. Computed tomography scan of the chest was reviewed and there is a suspicion for a segmental and subsegmental left upper lobe and right lower lobe pulmonary emboli. For that reason the patient was started on Lovenox. There is also groundglass changes and infiltration of the right upper lobe. Some chronic inflammatory changes in the lower lobes and there are some changes consistent with paraseptal emphysema and some limited scarring involving the lung bases and this raises the possibility of interstitial lung disease secondary to rheumatoid arthritis. The patient also has some loculated pleural effusion lung bases bilaterally right more than left. He was diagnosed and treated for MRSA pneumonia back in October at [facility]. The patient is currently on a combination of cefepime, Levaquin and vancomycin. The patient is also being diuresed IV Lasix. I'll cardiac exam shows a preserved LV function. No leukocytosis. Doppler of the left lower extremity shows no evidence of any DVT Objective - Vital Signs Vital signs: Vital Signs Temp 97.6 F 12/11/17 06:17 Pulse 83 12/11/17 11:32 Resp 18 12/11/17 06:17 BP 116/68 12/11/17 06:17 Pulse Ox 93 L 12/11/17 10:11 Intake & Output 12/10/17 12/11/17 12/11/17 18:59 06:59 18:59 Weight 69.5 kg Other: Voiding Method Urinal Urinal Urinal # Voids 1 - Exam - Constitutional General appearance: average body habitus, disheveled, no acute distress - EENT Eyes: EOMI, PERRLA ENT: hard of hearing Ears: bilateral: normal - Neck Neck: normal ROM Carotids: bilateral: upstroke normal Thyroid: bilateral: normal size - Respiratory Respiratory: left: rhonchi, bilateral: rales - Cardiovascular Rhythm: regular Heart sounds: normal: S1, S2 - Gastrointestinal General gastrointestinal: normal bowel sounds - Integumentary Integumentary: normal turgor - Neurologic Neurologic: CNII-XII intact - Musculoskeletal Musculoskeletal: generalized weakness - Psychiatric Psychiatric: A&O x's 3, appropriate affect, intact judgment & insight - Labs CBC & Chem 7: 12/09/17 22:25 12/11/17 07:48 Labs: Abnormal Lab Results - Last 24 Hours (Table) 12/11/17 Range/Units 07:48 Chloride 108 H (98-107) mmol/L BUN 26 H (9-20) mg/dL Glucose 148 H (74-99) mg/dL Microbiology - Last 24 Hours (Table) 12/10/17 09:20 Gram Stain - Preliminary Sputum Sputum Culture - Preliminary 12/09/17 22:25 Blood Culture - Preliminary Blood No Growth after 24 hours Assessment and Plan Plan: Assessment 1 dyspnea which is multifactorial. The patient obviously was treated for an MRSA pneumonia back in October 2017 and he completed a course of vancomycin. 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 2 coronary artery disease 3 chronic lower extremity edema/lymphedema 4 chronic anemia 5 previous history of MRSA pneumonia 6 BPH Plan Collect sputum Gram stain and culture. Continue current antibiotic coverage. Agree for Lovenox at this point with a possibility of transitioning this patient to a long-term and to coagulation of an oral anticoagulants at a later stage. Continue diuresis. Monitor the outcome. Add Mucinex DM. We'll follow. Bronchoscopy if no recovery for a repeat microbial analysis.
--- NOTE | 2017-12-11 14:25 | XR ---
EXAMINATION TYPE: XR chest 2V DATE OF EXAM: 12/11/2017 COMPARISON: 12/09/2017 INDICATION: Pneumonia TECHNIQUE: Frontal and lateral views of the chest are obtained. FINDINGS: The heart size is normal. The pulmonary vasculature is slightly prominent. Bibasilar infiltrates are present. Minimal bilateral pleural effusions may be present. Mild infiltrat es in the right midlung. Correlate for atelectasis and pneumonia. Pulmonary edema could be considered . IMPRESSION: 1. Bibasilar infiltrates and mild right mid lung infiltrate with small bilateral pleural effusions. C onsider congestive heart failure and pulmonary edema. Differential would include atelectasis and pneu monia.
[2017-12-11] MEDS: guaiFENesin 600 MG TABLET.ER PO SCH ×2 (15:16→21:16)
[2017-12-11] MEDS: FERROUS SULFATE 325 MG TAB PO SCH (15:45)
[2017-12-11] MEDS: CYANOCOBALAMIN 500 MCG TAB PO SCH (15:45)
--- NOTE | 2017-12-11 18:00 | PN ---
PROGRESS NOTE DATE OF SERVICE: 12/11/2017 PRESENTING COMPLAINT: Cough, short of breath. INTERVAL HISTORY: This is a patient who presented with CHF exacerbation, pneumonia and also acute pulmonary embolism, having recently been hospitalized at a different hospital, started on Lovenox yesterday. The patient did tolerate some diet. Edema is present. Sitting up on a chair. REVIEW OF SYSTEMS: Done for constitutional, cardiovascular, GI, pulmonary; relevant findings as above. CURRENT MEDICATIONS: Reviewed that include: 1. IV cefepime. 2. Vancomycin. 3. Levaquin. 4. IV Lasix. 5. Lovenox. EXAMINATION: Temperature 97.6, pulse 78, respirations 18, blood pressure 106/68, pulse ox 97% on room air. GENERAL APPEARANCE: Sitting up on a chair, awake. EYES: Pupils equal. Conjunctivae normal. HEENT: External nose and ears normal. Oral cavity normal. Decreased hearing. NECK: JVD not raised. Mass not palpable. RESPIRATORY: Effort increased. LUNGS: Decreased breath sounds. Some crackles. CARDIOVASCULAR: First and second sounds normal. Edema present. ABDOMEN: Soft, nontender. Liver and spleen not palpable. PSYCHIATRY: Alert and oriented x3. Mood and affect were normal. INVESTIGATIONS: Potassium 4.1, BUN 26, creatinine 0.86. ASSESSMENT: 1. Acute bilateral pulmonary embolism in a patient who recently was hospitalized for at least a month on Lovenox. 2. Acute congestive heart failure exacerbation from diastolic dysfunction, ejection fraction 55%-60%. 3. Moderate mitral regurgitation, nonrheumatic. 4. Rheumatoid arthritis bilaterally in both the hands. 5. Pneumonia, patchy, suspect gram-negative organism, pending sputum culture. 6. Hard of hearing. 7. Coronary artery disease, prior history of myocardial infarction. 8. Microcytic anemia, cause undetermined. 9. Benign prostatic hypertrophy. PLAN: Continue with Lovenox currently. Will switch the patient to p.o. Eliquis in the morning. Sputum cultures are pending. Based on the sputum culture, patient's antibiotics can be changed. Sputum is primarily clear. I do not see any fever or a white count. Should be able to be switched over to p.o. antibiotics tomorrow. MMODL / IJN: [id number] /
[2017-12-11] MEDS: FAMOTIDINE 20 MG TAB PO SCH (21:16)
[2017-12-12] MEDS: CEFEPIME 2 GM in SODIUM CHLORIDE 0.9% 50 ML IVPB SCH ×3 (03:08→18:03)
[2017-12-12] MEDS: VANCOMYCIN 1,250 MG in SODIUM CHLORIDE 0.9% 250 ML IVPB SCH ×2 (03:45→15:10)
[2017-12-12] MEDS: ACETAMINOPHEN TAB 325 MG TAB PO PRN ×2 (04:02→10:47)
[2017-12-12] MEDS: LEVOFLOXACIN 750MG-D5W PMX 750 MG in DEXTROSE/WATER 1 150ML.BAG IVPB SCH (06:37)
[2017-12-12] MEDS: FERROUS SULFATE 325 MG TAB PO SCH (07:47)
[2017-12-12] MEDS: CYANOCOBALAMIN 500 MCG TAB PO SCH (07:47)
[2017-12-12] MEDS: guaiFENesin 600 MG TABLET.ER PO SCH ×3 (07:47→20:51)
[2017-12-12] MEDS: APIXABAN 5 MG TAB PO SCH ×3 (07:47→20:51)
[2017-12-12] MEDS: MELOXICAM 7.5 MG TAB PO SCH (07:48)
[2017-12-12] MEDS: ASCORBIC ACID 500 MG TAB PO SCH (07:48)
[2017-12-12] MEDS: ASPIRIN 81 MG PO SCH (07:48)
[2017-12-12] MEDS: FAMOTIDINE 20 MG TAB PO SCH ×2 (07:48→20:51)
[2017-12-12] MEDS: TAMSULOSIN 0.4 MG CAP.ER.24H PO SCH (07:49)
[2017-12-12] MEDS: FUROSEMIDE 10 MG/ML 4 ML VIAL IV SCH ×2 (07:49→20:51)
[2017-12-12] MEDS: FINASTERIDE 5 MG TAB PO SCH (07:49)
[2017-12-12] MEDS: IPRATROPIUM-ALBUTEROL 3 ML NEB INHALATION SCH ×4 (08:03→19:55)
[2017-12-12 08:33] LABS: Calcium 8.9 mg/dL (8.4-10.2); Potassium 4.5 mmol/L (3.5-5.1)
[2017-12-12 08:40] LABS: Anisocytosis Slight; Basophils # (A) 0.1 k/uL (0-0.2); Basophils % (A) 1 %; Eosinophils % (A) 16 %; HCT 28.2 % (39.0-53.0); HGB 8.6 gm/dL (13.0-17.5); Hypochromasia Moderate; Lymphocytes # (A) 1.5 k/uL (1.0-4.8); Lymphocytes % (A) 12 %; MCH 24.1 pg (25.0-35.0); MCHC 30.6 g/dL (31.0-37.0); MCV 78.8 fL (80.0-100.0); Mean Platelet Volume 6.7; Microcytosis Slight; Monocytes # (A) 0.9 k/uL (0-1.0); Monocytes % (A) 8 %; Neutrophils # (A) 7.7 k/uL (1.3-7.7); Neutrophils % (A) 62 %; Platelet Count 454 k/uL (150-450); Poikilocytosis Slight; RBC 3.58 m/uL (4.30-5.90); RDW 17.7 % (11.5-15.5); WBC 12.4 k/uL (3.8-10.6)
--- NOTE | 2017-12-12 12:49 | P.PN ---
Subjective Progress Note Date: 12/12/17 This is a pleasant 77-year-old gentleman who follows with Dr. Gonzalez as his primary care physician. He has a history of myocardial infarction, congestive heart failure, DVT, recent admission to [facility] for MRSA pneumonia with an extended stay subsequent transfer to inpatient rehabilitation and then discharged home. He states he's been home approximately 1 month and had developed increasing shortness breath weakness chest pain was seen by his PCP yesterday and referred here for the same. He states he was told he has fluid in his lungs and pneumonia. His chest x-ray does show evidence of congestive heart failure and some left lower lobe opacity. He has been afebrile. Maintaining O2 saturations in the 90s on room air. White count 10.5. Hemoglobin 8.2. Creatinine 0.86. ProBNP 766. He has been initiated on Lasix 40 mg every 12 hours. Echocardiogram revealed preserved left ventricular systolic function with ejection fraction 50-55%. No pulmonary hypertension. Doppler of the lower extremities negative. Patient is a lifelong nonsmoker. No previous pulmonary issues prior to his recent admission. From there he was discharged home on Symbicort and albuterol. On today's evaluation of 12/11/2017. The patient is having a congested cough and he is bringing up some yellow sputum. No hemoptysis. No pleurisy. He has chronic edema of the left lower extremity and currently is on diuretics. 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 He is a lifetime nonsmoker. The patient denies having any chest pain. No fever or chills. Computed tomography scan of the chest was reviewed and there is a suspicion for a segmental and subsegmental left upper lobe and right lower lobe pulmonary emboli. For that reason the patient was started on Lovenox. There is also groundglass changes and infiltration of the right upper lobe. Some chronic inflammatory changes in the lower lobes and there are some changes consistent with paraseptal emphysema and some limited scarring involving the lung bases and this raises the possibility of interstitial lung disease secondary to rheumatoid arthritis. The patient also has some loculated pleural effusion lung bases bilaterally right more than left. He was diagnosed and treated for MRSA pneumonia back in October at [facility]. The patient is currently on a combination of cefepime, Levaquin and vancomycin. The patient is also being diuresed IV Lasix. I'll cardiac exam shows a preserved LV function. No leukocytosis. Doppler of the left lower extremity shows no evidence of any DVT On today's evaluation of 12/12/2017, the patient is coughing less of his sputum. The sputum sample has been collected yet the final results and the cultures of that resulted yet. No chest pain. He is still winded has shortness of breath. He is on a combination of IV cefepime, IV Levaquin and vancomycin and [place] [facility] [place]. The patient is also on IV Lasix and he is having improvement in lower extremity edema. Has been switched to oral Eliquis for long-term anticoagulation. Objective - Vital Signs Vital signs: Vital Signs Temp 97.6 F 12/12/17 08:02 Pulse 83 12/12/17 11:38 Resp 16 12/12/17 08:02 BP 122/76 12/12/17 08:02 Pulse Ox 94 L 12/12/17 08:03 Intake & Output 12/11/17 12/12/17 12/12/17 18:59 06:59 18:59 Output Total 900 200 Balance -900 -200 Output: Urine 900 200 Other: Voiding Method Urinal Urinal # Voids 1 - Exam - Constitutional General appearance: average body habitus, disheveled, no acute distress - EENT Eyes: EOMI, PERRLA ENT: hard of hearing Ears: bilateral: normal - Neck Neck: normal ROM Carotids: bilateral: upstroke normal Thyroid: bilateral: normal size - Respiratory Respiratory: left: rhonchi, bilateral: rales - Cardiovascular Rhythm: regular Heart sounds: normal: S1, S2 - Gastrointestinal General gastrointestinal: normal bowel sounds - Integumentary Integumentary: normal turgor - Neurologic Neurologic: CNII-XII intact - Musculoskeletal Musculoskeletal: generalized weakness - Psychiatric Psychiatric: A&O x's 3, appropriate affect, intact judgment & insight - Labs CBC & Chem 7: 12/12/17 07:19 12/12/17 07:19 Labs: Abnormal Lab Results - Last 24 Hours (Table) 12/12/17 12/12/17 Range/Units 07:19 07:19 WBC 12.4 H (3.8-10.6) k/uL RBC 3.58 L (4.30-5.90) m/uL Hgb 8.6 L (13.0-17.5) gm/dL Hct 28.2 L (39.0-53.0) % MCV 78.8 L (80.0-100.0) fL MCH 24.1 L (25.0-35.0) pg MCHC 30.6 L (31.0-37.0) g/dL RDW 17.7 H (11.5-15.5) % Plt Count 454 H (150-450) k/uL Eosinophils # 2.0 H (0-0.7) k/uL BUN 30 H (9-20) mg/dL Microbiology - Last 24 Hours (Table) 12/10/17 09:20 Gram Stain - Final Sputum Sputum Culture - Final 12/09/17 22:25 Blood Culture - Preliminary Blood No Growth after 48 hours Assessment and Plan Plan: Assessment 1 dyspnea which is multifactorial. The patient obviously was treated for an MRSA pneumonia back in October 2017 and he completed a course of vancomycin. 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 2 coronary artery disease 3 chronic lower extremity edema/lymphedema 4 chronic anemia 5 previous history of MRSA pneumonia 6 BPH Plan Awaiting sputum sample. Continue same treatment. Continue current antibiotics. Continue diuretics. Oral Eliquis for anticoagulation. Repeat chest is in the morning. We'll continue to follow. Bronchoscopy if no ongoing improvement.
[2017-12-12] MEDS ORDERED: VANCOMYCIN TROUGH DUE 1 EACH MISC MISCELLANE ONE (14:30)
[2017-12-12] MEDS: ONDANSETRON 4 MG/2 ML VIAL IVP PRN (15:14)
--- NOTE | 2017-12-12 21:19 | PN ---
PROGRESS NOTE DATE OF SERVICE: 12/12/2017 PRESENTING COMPLAINT: Short of breath. INTERVAL HISTORY: This patient admitted with CHF exacerbation, pneumonia and acute pulmonary embolism. Sputums have been negative. Not bringing up any much sputum. Slightly short of breath. Edema slightly coming down with IV Lasix. The patient was switched over to Eliquis this morning. REVIEW OF SYSTEMS: Done for constitutional, cardiovascular, GI, pulmonary and relevant findings as above. Sitting up in a chair. CURRENT MEDICATIONS: Include DuoNeb, IV cefepime and vancomycin, Levaquin and Eliquis. PHYSICAL EXAMINATION: VITAL SIGNS: Temp 98.6, pulse 95, respirations 18, blood pressure 100/63. Pulse ox 95% on room air. GENERAL APPEARANCE: Sitting up in a chair, awake, not in distress. EYES: Pupils equal. Conjunctivae normal. HEENT: External appearance of nose and ears normal. Oral cavity normal. Decreased hearing. NECK JVD not raised. Mass not palpable. RESPIRATORY: Effort increased. LUNGS: Decreased breath sounds. CARDIOVASCULAR: 1st and 2nd sounds normal. Edema present with Arya wrap. ABDOMEN: Soft, nontender. Liver and spleen not palpable. PSYCHIATRY: Alert and oriented x3. Mood and affect normal. INVESTIGATIONS: White count 12.4, hemoglobin 8.6, platelets 454. Potassium 4.5, creatinine 0.97. ASSESSMENT: 1. Acute bilateral pulmonary embolism in a patient who was recently was hospitalized, now on Eliquis. 2. Acute congestive heart failure exacerbation from diastolic dysfunction. Ejection fraction 55-60%. 3. Moderate mitral regurgitation, nonrheumatic. 4. Rheumatoid arthritis bilateral in both the hands, severe. 5. Pneumonia, patchy, suspect gram-negative organism. Sputum cultures are negative on broad-spectrum antibiotics. 6. Hard of hearing. 7. Coronary artery disease, prior history of myocardial infarction. 8. Macrocytic anemia. Cause undetermined. 9. Benign prostatic hypertrophy. PLAN: The patient has been afebrile. Barely bringing up any sputum. Will DC the vancomycin for right now. Continue current medication and treatment plan. Care was discussed with the patient. MMODL / JUANCHON: [id number] /
[2017-12-13] MEDS: CEFEPIME 2 GM in SODIUM CHLORIDE 0.9% 50 ML IVPB SCH ×2 (02:50→11:10)
[2017-12-13] MEDS: IPRATROPIUM-ALBUTEROL 3 ML NEB INHALATION SCH ×4 (07:22→19:50)
[2017-12-13 07:58] LABS: Anisocytosis Slight; Basophils # (A) 0.1 k/uL (0-0.2); Basophils % (A) 1 %; Eosinophils # (A) 1.6 k/uL (0-0.7); Eosinophils % (A) 13 %; HCT 29.4 % (39.0-53.0); HGB 9.3 gm/dL (13.0-17.5); Hypochromasia Marked; Lymphocytes # (A) 1.1 k/uL (1.0-4.8); Lymphocytes % (A) 9 %; MCH 24.9 pg (25.0-35.0); MCHC 31.7 g/dL (31.0-37.0); MCV 78.5 fL (80.0-100.0); Mean Platelet Volume 6.1; Microcytosis Slight; Monocytes # (A) 1.2 k/uL (0-1.0); Monocytes % (A) 10 %; Neutrophils # (A) 7.8 k/uL (1.3-7.7); Neutrophils % (A) 64 %; Platelet Count 419 k/uL (150-450); Poikilocytosis Slight; RBC 3.74 m/uL (4.30-5.90); RDW 17.5 % (11.5-15.5); WBC 12.2 k/uL (3.8-10.6)
[2017-12-13 08:29] LABS: Calcium 9.1 mg/dL (8.4-10.2); Potassium 4.6 mmol/L (3.5-5.1)
[2017-12-13] MEDS: MELOXICAM 7.5 MG TAB PO SCH (08:58)
[2017-12-13] MEDS: APIXABAN 5 MG TAB PO SCH (08:59)
[2017-12-13] MEDS: FUROSEMIDE 10 MG/ML 4 ML VIAL IV SCH ×2 (08:59→21:00)
[2017-12-13] MEDS: ASPIRIN 81 MG PO SCH (08:59)
[2017-12-13] MEDS: LEVOFLOXACIN 750 MG TAB PO SCH (08:59)
[2017-12-13] MEDS: ASCORBIC ACID 500 MG TAB PO SCH (09:00)
[2017-12-13] MEDS: FAMOTIDINE 20 MG TAB PO SCH ×2 (09:00→20:59)
[2017-12-13] MEDS: guaiFENesin 600 MG TABLET.ER PO SCH ×2 (09:00→20:59)
[2017-12-13] MEDS: FERROUS SULFATE 325 MG TAB PO SCH (09:01)
[2017-12-13] MEDS: TAMSULOSIN 0.4 MG CAP.ER.24H PO SCH (09:01)
[2017-12-13] MEDS: FINASTERIDE 5 MG TAB PO SCH (09:01)
[2017-12-13] MEDS: CYANOCOBALAMIN 500 MCG TAB PO SCH (09:01)
--- NOTE | 2017-12-13 09:09 | P.PN ---
Subjective Progress Note Date: 12/13/17 Principal diagnosis: Shortness of breath This is a pleasant 77-year-old gentleman with a past medical history significant for congestive heart failure secondary to diastolic dysfunction, coronary artery disease, as well as multiple comorbid conditions, who was admitted to the hospital with acute respiratory failure seems to be related to multi factors including congestive heart failure as well as pneumonia. On follow-up with the patient today, he continues not feeling well. He continues to have shortness of breath with laying flat in bed. Also he continues to have cough seems to be productive of some sputum. No fever and no chills. He does have bilateral lower extremities edema as well seems to be worse on the left side. The patient continues to be on IV Lasix and I would continue that for additional 24 hours. The kidney function continues to be stable. Objective - Vital Signs Vital signs: Vital Signs Temp 97.6 F 12/13/17 07:49 Pulse 103 H 12/13/17 07:49 Resp 16 12/13/17 07:49 BP 112/63 12/13/17 07:49 Pulse Ox 92 L 12/13/17 07:49 Intake & Output 12/12/17 12/13/17 12/13/17 18:59 06:59 18:59 Intake Total 600 Output Total 200 Balance 400 Weight 79.889 kg 75.2 kg Intake: Oral 600 Output: Urine 200 Other: # Voids 3 0 # Bowel Movements 0 - Constitutional General appearance: Present: no acute distress - Respiratory Respiratory: bilateral: rales - Cardiovascular Rhythm: regular Heart sounds: normal: S1, S2 - Labs CBC & Chem 7: 12/13/17 07:16 12/13/17 07:16 Labs: Abnormal Lab Results - Last 24 Hours (Table) 12/13/17 12/13/17 Range/Units 07:16 07:16 WBC 12.2 H (3.8-10.6) k/uL RBC 3.74 L (4.30-5.90) m/uL Hgb 9.3 L (13.0-17.5) gm/dL Hct 29.4 L (39.0-53.0) % MCV 78.5 L (80.0-100.0) fL MCH 24.9 L (25.0-35.0) pg RDW 17.5 H (11.5-15.5) % Neutrophils # 7.8 H (1.3-7.7) k/uL Monocytes # 1.2 H (0-1.0) k/uL Eosinophils # 1.6 H (0-0.7) k/uL BUN 37 H (9-20) mg/dL Microbiology - Last 24 Hours (Table) 12/09/17 22:25 Blood Culture - Preliminary Blood No Growth after 72 hours 12/10/17 09:20 Gram Stain - Final Sputum Sputum Culture - Final Assessment and Plan Assessment: Assessment #1 acute exacerbation of diastolic congestive heart failure #2 left lower lobe pneumonia #3 multiple comorbid conditions Plan #1 the echocardiogram revealed normal LV function was moderate mitral regurgitation #2 I will keep the patient on IV Lasix for additional 24 hours #3 continue monitor the kidney function and electrolytes
[2017-12-13 12:02] LABS: INR 1.5 (<1.2); Prothrombin Time 13.9 sec (9.0-12.0)
[2017-12-13] MEDS: guaiFENesin-Coden 100-10MG/5ML 10 ML CUP PO PRN (14:10)
--- NOTE | 2017-12-13 14:24 | P.PN ---
Subjective Progress Note Date: 12/13/17 Principal diagnosis: Dyspnea, multifactorial, partly due to recent MRSA pneumonia, pulmonary embolisms, and acute exacerbation of diastolic congestive heart failure This is a pleasant 77-year-old gentleman who follows with Dr. Gonzalez as his primary care physician. He has a history of myocardial infarction, congestive heart failure, DVT, recent admission to [facility] for MRSA pneumonia with an extended stay subsequent transfer to inpatient rehabilitation and then discharged home. He states he's been home approximately 1 month and had developed increasing shortness breath weakness chest pain was seen by his PCP yesterday and referred here for the same. He states he was told he has fluid in his lungs and pneumonia. His chest x-ray does show evidence of congestive heart failure and some left lower lobe opacity. He has been afebrile. Maintaining O2 saturations in the 90s on room air. White count 10.5. Hemoglobin 8.2. Creatinine 0.86. ProBNP 766. He has been initiated on Lasix 40 mg every 12 hours. Echocardiogram revealed preserved left ventricular systolic function with ejection fraction 50-55%. No pulmonary hypertension. Doppler of the lower extremities negative. Patient is a lifelong nonsmoker. No previous pulmonary issues prior to his recent admission. From there he was discharged home on Symbicort and albuterol. On today's evaluation of 12/11/2017. The patient is having a congested cough and he is bringing up some yellow sputum. No hemoptysis. No pleurisy. He has chronic edema of the left lower extremity and currently is on diuretics. 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 He is a lifetime nonsmoker. The patient denies having any chest pain. No fever or chills. Computed tomography scan of the chest was reviewed and there is a suspicion for a segmental and subsegmental left upper lobe and right lower lobe pulmonary emboli. For that reason the patient was started on Lovenox. There is also groundglass changes and infiltration of the right upper lobe. Some chronic inflammatory changes in the lower lobes and there are some changes consistent with paraseptal emphysema and some limited scarring involving the lung bases and this raises the possibility of interstitial lung disease secondary to rheumatoid arthritis. The patient also has some loculated pleural effusion lung bases bilaterally right more than left. He was diagnosed and treated for MRSA pneumonia back in October at [facility]. The patient is currently on a combination of cefepime, Levaquin and vancomycin. The patient is also being diuresed IV Lasix. I'll cardiac exam shows a preserved LV function. No leukocytosis. Doppler of the left lower extremity shows no evidence of any DVT On today's evaluation of 12/12/2017, the patient is coughing less of his sputum. The sputum sample has been collected yet the final results and the cultures of that resulted yet. No chest pain. He is still winded has shortness of breath. He is on a combination of IV cefepime, IV Levaquin and vancomycin and was admitted by the coverage for healthcare history of pneumonia. The patient is also on IV Lasix and he is having improvement in lower extremity edema. Has been switched to oral Eliquis for long-term anticoagulation. On 12/13/2017 patient seen in follow-up on medical surgical floor. Patient is sitting up at the bedside, in no acute distress, room air pulse ox is 92%, hemodynamically stable, he is afebrile, no fever or chills, no chest wall discomfort, no hemoptysis. Lung sounds are clear to auscultation. Sputum and blood cultures remain negative. Patient is being treated with a combination of cefepime, Levaquin and vancomycin. Today's lab work has been reviewed, WBC is 12.2, hemoglobin is 9.3, electrolytes are within normal limits, BUN is 37 creatinine is 1.0. Likely patient denies any distress, is breathing easier, his weight is down 4.6 kg in the last 24 hours. Patient is diuresing, currently on Lasix 40 mg every 12 hours. No fever, no chills, no chest congestion. Remains in sinus rhythm with controlled rate, he has 2+ edema in his left lower extremity, and trace edema in his right, both legs were Arya wraps. Objective - Vital Signs Vital signs: Vital Signs Temp 97.6 F 12/13/17 07:49 Pulse 103 H 12/13/17 07:49 Resp 16 12/13/17 07:49 BP 112/63 12/13/17 07:49 Pulse Ox 92 L 12/13/17 07:49 Intake & Output 12/12/17 12/13/17 12/13/17 18:59 06:59 18:59 Intake Total 600 Output Total 200 Balance 400 Weight 79.889 kg 75.2 kg Intake: Oral 600 Output: Urine 200 Other: # Voids 3 0 # Bowel Movements 0 - Exam - Constitutional General appearance: average body habitus, disheveled, no acute distress - EENT Eyes: EOMI, PERRLA ENT: hard of hearing Ears: bilateral: normal - Neck Neck: normal ROM Carotids: bilateral: upstroke normal Thyroid: bilateral: normal size - Respiratory Respiratory: Clear breath sounds bilaterally - Cardiovascular Rhythm: regular Heart sounds: normal: S1, S2. 2+ edema and left lower extremity, and trace edema in the right. Bilateral lower extremities are a strapped there is small amount of weeping noted from the left lower leg - Gastrointestinal General gastrointestinal: normal bowel sounds - Integumentary Integumentary: normal turgor - Neurologic Neurologic: CNII-XII intact - Musculoskeletal Musculoskeletal: generalized weakness - Psychiatric Psychiatric: A&O x's 3, appropriate affect, intact judgment & insight - Labs CBC & Chem 7: 12/13/17 07:16 12/13/17 07:16 Labs: Abnormal Lab Results - Last 24 Hours (Table) 12/13/17 12/13/17 Range/Units 07:16 07:16 WBC 12.2 H (3.8-10.6) k/uL RBC 3.74 L (4.30-5.90) m/uL Hgb 9.3 L (13.0-17.5) gm/dL Hct 29.4 L (39.0-53.0) % MCV 78.5 L (80.0-100.0) fL MCH 24.9 L (25.0-35.0) pg RDW 17.5 H (11.5-15.5) % Neutrophils # 7.8 H (1.3-7.7) k/uL Monocytes # 1.2 H (0-1.0) k/uL Eosinophils # 1.6 H (0-0.7) k/uL BUN 37 H (9-20) mg/dL Microbiology - Last 24 Hours (Table) 12/09/17 22:25 Blood Culture - Preliminary Blood No Growth after 72 hours 12/10/17 09:20 Gram Stain - Final Sputum Sputum Culture - Final Assessment and Plan Plan: Assessment: 1 dyspnea which is multifactorial. The patient obviously was treated for an MRSA pneumonia back in October 2017 and he completed a course of vancomycin. 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 2 coronary artery disease 3 chronic lower extremity edema/lymphedema 4 chronic anemia 5 previous history of MRSA pneumonia 6 BPH Plan Continue current antibiotic coverage, patient remains afebrile, no chills, no chest wall tenderness, no increased congestion. He is diuresing, still has 2+ edema in his left lower extremity, obtained diuretics per cardiology. Daily weights, accurate I&O's. On room air, he is tolerating ambulation in the room. Still has some coughing, and he states he is unable to rest at night, we will add Robitussin-AC. Continue nebulized bronchodilators. Patient has no prescription coverage, and the Eliquis is going to cost him $500 a month out of pocket after the initial free month coverage. For that reason she will have to be switched to Coumadin. He was started patient on Lovenox at 80 mg subcu twice daily, and Coumadin 7.5 mg tonight I performed a history & physical examination of the patient and discussed their management with my nurse practitioner, Amber Ricci. I reviewed the nurse practitioner's note and agree with the documented findings and plan of care. Lung sounds are clear. The findings and the impression was discussed with the patient. I attest to the documentation by the nurse practitioner. Time with Patient: Less than 30
[2017-12-13] MEDS ORDERED: ENOXAPARIN 80 MG/0.8 ML SYRINGE SQ SCH (14:45)
[2017-12-13] MEDS ORDERED: WARFARIN 7.5 MG TAB PO ONE ×2 (18:00)
--- NOTE | 2017-12-13 18:41 | PN ---
PROGRESS NOTE DATE OF SERVICE: 12/13/2017 PRESENTING COMPLAINT: Short of breath. INTERVAL HISTORY: Patient presented with CHF exacerbation, pneumonia and acute pulmonary embolism. Not much sputum is coming up. Patient states he has not slept for quite some time, cannot lie down in bed, does not want to keep his leg up, and he starts coughing, and so he sits up on a chair all the time. Edema is slowly coming down. Cost of Eliquis is high; hence he will have to be switched over to Coumadin. REVIEW OF SYSTEMS: Done for constitutional, cardiovascular, GI, pulmonary; relevant findings as above. CURRENT MEDICATIONS: Reviewed. They include IV cefepime, Levaquin, Eliquis. PHYSICAL EXAMINATION: Temperature 97.6, pulse 103, respiration 16, blood pressure 112/63, pulse ox 92% on room air. GENERAL APPEARANCE: Sitting up on a chair, tired-appearing. EYES: Pupils equal. Conjunctivae normal. HEENT: External appearance of nose and ears normal. Oral cavity normal. Decreased hearing. NECK: JVD not raised. Mass not palpable. RESPIRATORY: Effort increased. LUNGS: Decreased breath sounds. CARDIOVASCULAR: First and second sounds normal. Edema present. ABDOMEN: Soft, non-tender. Liver and spleen not palpable. PSYCHIATRY: Awake. Answering simple questions. INVESTIGATIONS: White count 12.2, hemoglobin 9.3, potassium 4.6, BUN 37, creatinine 1.0. INR 1.5. ASSESSMENT: 1. Acute bilateral pulmonary embolism in a patient who recently was hospitalized, now will be switched over from Eliquis to Coumadin, as the former is very expensive. 2. Acute congestive heart failure from diastolic dysfunction, ejection fraction 55% to 60%. 3. Moderate mitral regurgitation, non-rheumatic. 4. Rheumatoid arthritis, bilateral, severe in both the hands. 5. Pneumonia, patchy; suspect gram-negative organism. 6. Hard of hearing. 7. Coronary artery disease with prior history of myocardial infarction. 8. Macrocytic anemia, cause undetermined. 9. Benign prostatic hypertrophy. 10.Chronic insomnia, multifactorial. PLAN: I had a lengthy talk with the patient about his sleeping. He prefers to sleep sitting up, as he does not feel comfortable lying down or propped up. I told him to use a table, put a pillow. He is quite agreeable to the same. Did convey the same to the nurse. Also patient's Eliquis has been discontinued. He was started back on Lovenox 80 mg subcutaneously and will receive Coumadin 7.5 tonight and switch to 5 mg from tomorrow. Will keep the patient on Lovenox until INR is therapeutic. MMPIOL / IJN: [id number] /
[2017-12-13] MEDS: ACETAMINOPHEN TAB 325 MG TAB PO PRN (18:51)
--- NOTE | 2017-12-13 20:47 | XR ---
EXAMINATION: XR chest 2V DATE AND TIME: 12/13/2017 6:18 PM ORDERING PROVIDER: Amber Ricci CLINICAL INDICATION: follow up pneumonia and chf TECHNIQUE: PA and lateral COMPARISON: 12/11/2017 DESCRIPTION: The previously seen bilateral [id number] pleural effusions are redemonstrated. The previously seen bibasilar dense partial atelectasis and/or pneumonia of the lung bases is redemon strated. The previously seen silhouetting of the mid and lower pulmonary vasculature by a fine reticular patte rn of increased density and also by diffuse consolidative opacity is redemonstrated, and consistent w ith alveolar phase pulmonary edema. IMPRESSION: SIMILAR OVERALL LUNG INFLATION PATTERN AND BILATERAL PLEURAL EFFUSIONS WHEN COMPARED TO T HE PRIOR STUDY OF 2 DAYS AGO; NO NEW FINDINGS.
[2017-12-13] MEDS: ENOXAPARIN 80 MG/0.8 ML SYRINGE SQ SCH (20:58)
[2017-12-14] MEDS: ACETAMINOPHEN TAB 325 MG TAB PO PRN ×2 (04:31→12:31)
[2017-12-14] MEDS: guaiFENesin-Coden 100-10MG/5ML 10 ML CUP PO PRN (04:33)
[2017-12-14 08:04] LABS: INR 1.5 (<1.2); Prothrombin Time 13.7 sec (9.0-12.0)
[2017-12-14 08:11] LABS: Calcium 8.9 mg/dL (8.4-10.2)
[2017-12-14] MEDS: IPRATROPIUM-ALBUTEROL 3 ML NEB INHALATION SCH ×4 (08:50→21:11)
[2017-12-14] MEDS ORDERED: CEFEPIME 2 GM in SODIUM CHLORIDE 0.9% 50 ML IVPB SCH (09:00)
--- NOTE | 2017-12-14 09:25 | P.PN ---
Subjective Progress Note Date: 12/14/17 Principal diagnosis: Dyspnea, multifactorial, partly due to recent MRSA pneumonia, pulmonary embolisms, and acute exacerbation of diastolic congestive heart failure This is a pleasant 77-year-old gentleman who follows with Dr. Gonzalez as his primary care physician. He has a history of myocardial infarction, congestive heart failure, DVT, recent admission to [facility] for MRSA pneumonia with an extended stay subsequent transfer to inpatient rehabilitation and then discharged home. He states he's been home approximately 1 month and had developed increasing shortness breath weakness chest pain was seen by his PCP yesterday and referred here for the same. He states he was told he has fluid in his lungs and pneumonia. His chest x-ray does show evidence of congestive heart failure and some left lower lobe opacity. He has been afebrile. Maintaining O2 saturations in the 90s on room air. White count 10.5. Hemoglobin 8.2. Creatinine 0.86. ProBNP 766. He has been initiated on Lasix 40 mg every 12 hours. Echocardiogram revealed preserved left ventricular systolic function with ejection fraction 50-55%. No pulmonary hypertension. Doppler of the lower extremities negative. Patient is a lifelong nonsmoker. No previous pulmonary issues prior to his recent admission. From there he was discharged home on Symbicort and albuterol. On today's evaluation of 12/11/2017. The patient is having a congested cough and he is bringing up some yellow sputum. No hemoptysis. No pleurisy. He has chronic edema of the left lower extremity and currently is on diuretics. 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 He is a lifetime nonsmoker. The patient denies having any chest pain. No fever or chills. Computed tomography scan of the chest was reviewed and there is a suspicion for a segmental and subsegmental left upper lobe and right lower lobe pulmonary emboli. For that reason the patient was started on Lovenox. There is also groundglass changes and infiltration of the right upper lobe. Some chronic inflammatory changes in the lower lobes and there are some changes consistent with paraseptal emphysema and some limited scarring involving the lung bases and this raises the possibility of interstitial lung disease secondary to rheumatoid arthritis. The patient also has some loculated pleural effusion lung bases bilaterally right more than left. He was diagnosed and treated for MRSA pneumonia back in October at [facility]. The patient is currently on a combination of cefepime, Levaquin and vancomycin. The patient is also being diuresed IV Lasix. I'll cardiac exam shows a preserved LV function. No leukocytosis. Doppler of the left lower extremity shows no evidence of any DVT On today's evaluation of 12/12/2017, the patient is coughing less of his sputum. The sputum sample has been collected yet the final results and the cultures of that resulted yet. No chest pain. He is still winded has shortness of breath. He is on a combination of IV cefepime, IV Levaquin and vancomycin and was admitted by the coverage for healthcare history of pneumonia. The patient is also on IV Lasix and he is having improvement in lower extremity edema. Has been switched to oral Eliquis for long-term anticoagulation. On 12/13/2017 patient seen in follow-up on medical surgical floor. Patient is sitting up at the bedside, in no acute distress, room air pulse ox is 92%, hemodynamically stable, he is afebrile, no fever or chills, no chest wall discomfort, no hemoptysis. Lung sounds are clear to auscultation. Sputum and blood cultures remain negative. Patient is being treated with a combination of cefepime, Levaquin and vancomycin. Today's lab work has been reviewed, WBC is 12.2, hemoglobin is 9.3, electrolytes are within normal limits, BUN is 37 creatinine is 1.0. Likely patient denies any distress, is breathing easier, his weight is down 4.6 kg in the last 24 hours. Patient is diuresing, currently on Lasix 40 mg every 12 hours. No fever, no chills, no chest congestion. Remains in sinus rhythm with controlled rate, he has 2+ edema in his left lower extremity, and trace edema in his right, both legs were Arya wraps. On 12/14/2017 patient seen in follow-up on medical surgical floor. He slept in the chair last night, he states when he lays down he has coughing spells. Denies any acute distress, has a mild headache today, but denies any dyspnea. At the on 2 L per nasal cannula his pulse ox is 96%, low-grade fever this morning, of 99.1F, hemodynamically stable. Lung sounds most likely clear, with minimal right lower lobe crackles. No fever, no chills, microbiology results of been reviewed, and remain negative. Patient remains on empiric antibiotics in the form of cefepime and Levaquin, vancomycin has been discontinued. Remains on IV diuretics at 40 mg IV every 12 hours. Improvement in left lower extremity edema noted, both legs are Arya wrapped. Objective - Vital Signs Vital signs: Vital Signs Temp 99.1 F 12/14/17 06:58 Pulse 78 12/14/17 09:03 Resp 18 12/14/17 06:58 BP 106/59 12/14/17 06:58 Pulse Ox 96 12/14/17 06:58 Intake & Output 12/13/17 12/14/17 12/14/17 18:59 06:59 18:59 Weight 75.2 kg Other: # Voids 3 0 # Bowel Movements 0 - Exam - Constitutional General appearance: average body habitus, disheveled, no acute distress - EENT Eyes: EOMI, PERRLA ENT: hard of hearing Ears: bilateral: normal - Neck Neck: normal ROM Carotids: bilateral: upstroke normal Thyroid: bilateral: normal size - Respiratory Respiratory: Breath sounds are mostly clear, with minimal crackles at the right lower base - Cardiovascular Rhythm: regular Heart sounds: normal: S1, S2. 1+ edema and left lower extremity, and trace edema in the right. Bilateral lower extremities are a strapped there is small amount of weeping noted from the left lower leg - Gastrointestinal General gastrointestinal: normal bowel sounds - Integumentary Integumentary: normal turgor - Neurologic Neurologic: CNII-XII intact - Musculoskeletal Musculoskeletal: generalized weakness - Psychiatric Psychiatric: A&O x's 3, appropriate affect, intact judgment & insight - Labs CBC & Chem 7: 12/13/17 07:16 12/14/17 07:31 Labs: Abnormal Lab Results - Last 24 Hours (Table) 12/13/17 12/14/17 12/14/17 Range/Units 11:18 07:31 07:31 PT 13.9 H 13.7 H (9.0-12.0) sec INR 1.5 H 1.5 H (<1.2) Sodium 136 L (137-145) mmol/L BUN 41 H (9-20) mg/dL Glucose 103 H (74-99) mg/dL Microbiology - Last 24 Hours (Table) 12/09/17 22:25 Blood Culture - Preliminary Blood No Growth after 96 hours Assessment and Plan Plan: Assessment: 1 dyspnea which is multifactorial. The patient obviously was treated for an MRSA pneumonia back in October 2017 and he completed a course of vancomycin. 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 2 coronary artery disease 3 chronic lower extremity edema/lymphedema 4 chronic anemia 5 previous history of MRSA pneumonia 6 BPH Plan Continue current medical treatment, continue current antibiotic coverage, blood and sputum cultures remain negative thus far, patient is afebrile. Today's INR is 1.5, patient received 7.5 mg of Coumadin last night, will receive another 5 tonight. Remains on Lovenox at 80 mg every 12 hours. No fever, no chills, no worsening dyspnea. Continue nebulized bronchodilators, increase activity as tolerated, continue to follow. I performed a history & physical examination of the patient and discussed their management with my nurse practitioner, Amber Ricci. I reviewed the nurse practitioner's note and agree with the documented findings and plan of care. Lung sounds are mostly clear. The findings and the impression was discussed with the patient. I attest to the documentation by the nurse practitioner. Time with Patient: Less than 30
[2017-12-14] MEDS: ENOXAPARIN 80 MG/0.8 ML SYRINGE SQ SCH ×2 (09:39→21:12)
[2017-12-14] MEDS: FINASTERIDE 5 MG TAB PO SCH (09:40)
[2017-12-14] MEDS: FAMOTIDINE 20 MG TAB PO SCH ×2 (09:40→21:12)
[2017-12-14] MEDS: guaiFENesin 600 MG TABLET.ER PO SCH ×2 (09:41→21:12)
[2017-12-14] MEDS: TAMSULOSIN 0.4 MG CAP.ER.24H PO SCH (09:41)
[2017-12-14] MEDS: FUROSEMIDE 10 MG/ML 4 ML VIAL IV SCH (09:41)
[2017-12-14] MEDS: CYANOCOBALAMIN 500 MCG TAB PO SCH (09:42)
[2017-12-14] MEDS: LEVOFLOXACIN 750 MG TAB PO SCH (09:42)
[2017-12-14] MEDS: FERROUS SULFATE 325 MG TAB PO SCH (09:42)
[2017-12-14] MEDS: ASCORBIC ACID 500 MG TAB PO SCH (09:42)
[2017-12-14] MEDS: MELOXICAM 7.5 MG TAB PO SCH (09:42)
[2017-12-14] MEDS: ASPIRIN 81 MG PO SCH (09:42)
[2017-12-14] MEDS: ONDANSETRON 4 MG/2 ML VIAL IVP PRN (12:12)
--- NOTE | 2017-12-14 12:51 | P.PN ---
Subjective Mr. Erazo is seen and examined sitting up in the chair. He is rather shaky, nauseated, vomiting and coughing. The nurse is giving zofran. He denies chest pain, shortness of breath, dizziness or palpitations. He is currently being treated for an acute PE as well as pneumonia. He is currently receiving lasix 40 mg IV BID. Weight is down 5 kg since admission. Legs are wrapped in areli bandages, per nursing he refuses to elevate his legs. He prefers to sit in the chair most of the time through the day and night. Blood pressure this morning 106/59, heart rate currently 105 fever 100.3F, maintaining oxygen saturation on nasal cannula 2 L. Laboratory data reviewed, sodium 136, potassium 5.0, creatinine 1.06, INR 1.5. Objective - Vital Signs Vital signs: Vital Signs Temp 100.3 F H 12/14/17 12:19 Pulse 105 H 12/14/17 12:19 Resp 20 12/14/17 12:19 BP 106/59 12/14/17 06:58 Pulse Ox 94 L 12/14/17 12:19 Intake & Output 12/13/17 12/14/17 12/14/17 18:59 06:59 18:59 Output Total 825 Balance -825 Weight 75.2 kg Output: Urine 825 Other: # Voids 3 0 # Bowel Movements 0 - Exam GENERAL: Well-appearing, well-nourished and in no acute distress. NECK: Supple without JVD or thyromegaly. LUNGS: Breath sounds clear to auscultation bilaterally. Respiration equal and unlabored. No wheezes, rales or rhonchi. Diminished bilaterally. HEART: Regular rate and rhythm with systolic ejection murmur at the base, no rubs or gallops. S1 and S2 heard. EXTREMITIES: Normal range of motion, ongoing 2+ pitting edema left lower extremity, no edema to right lower extremity. No clubbing or cyanosis. Peripheral pulses intact. - Labs CBC & Chem 7: 12/13/17 07:16 12/14/17 07:31 Labs: Abnormal Lab Results - Last 24 Hours (Table) 12/14/17 12/14/17 Range/Units 07:31 07:31 PT 13.7 H (9.0-12.0) sec INR 1.5 H (<1.2) Sodium 136 L (137-145) mmol/L BUN 41 H (9-20) mg/dL Glucose 103 H (74-99) mg/dL Microbiology - Last 24 Hours (Table) 12/09/17 22:25 Blood Culture - Preliminary Blood No Growth after 96 hours Assessment and Plan Assessment: ASSESSMENT Acute on chronic diastolic heart failure with preserved EF. Pneumonia with bilateral pleural effusions Elevated d-dimer Microcytic hypochromic anemia History of lyme disease Leukocytosis Febrile illness Pulmonary embolism PLAN Weight is down 5 kg since admission. Transition to PO diuretics, 40 mg PO BID lasix order has been placed. Ongoing medical management. Nurse Practitioner note has been reviewed, I agree with a documented findings and plan of care. Patient was seen and examined.
[2017-12-14] MEDS: FUROSEMIDE 40 MG TAB PO SCH (17:10)
[2017-12-14] MEDS: WARFARIN 5 MG TAB PO SCH (17:10)
[2017-12-15] MEDS: guaiFENesin-Coden 100-10MG/5ML 10 ML CUP PO PRN (01:41)
[2017-12-15] MEDS: ACETAMINOPHEN TAB 325 MG TAB PO PRN ×2 (03:07→13:03)
--- NOTE | 2017-12-15 06:49 | PN ---
PROGRESS NOTE DATE OF SERVICE: December 14, 2017 PRESENTING COMPLAINT: Tired. INTERVAL HISTORY: Patient presented with CHF exacerbation, pneumonia, acute pulmonary embolism, currently on Coumadin and Lovenox. Breathing is much better. The patient did sleep a bit better. Up to the bathroom. Had a bowel movement. REVIEW OF SYSTEMS: Done for constitutional, cardiovascular, GI, pulmonary; relevant findings as above. CURRENT MEDICATIONS: Reviewed that include Coumadin and Lovenox. Also on IV cefepime. Switched to p.o. Lasix. EXAMINATION: VITAL SIGNS: Temperature 96.7, pulse 101, respiration 20, blood pressure 94/59, pulse ox 92% on room air. GENERAL APPEARANCE: Sitting up in a chair, awake. EYES: Pupils equal. Conjunctivae normal. HEENT: External appearance of nose and ears normal. Oral cavity normal. Decreased hearing. NECK: JVD not raised. Mass not palpable. RESPIRATORY: Effort increased. LUNGS: Decreased breath sounds. CARDIOVASCULAR: 1st and 2nd sounds normal. Decreased edema. ABDOMEN: Soft, nontender. Liver and spleen not palpable. PSYCHIATRY: Awake, answering questions appropriately. INVESTIGATIONS: INR 1.5, potassium 5, BUN 41, creatinine 1.06. ASSESSMENT: 1. Acute bilateral pulmonary embolism due to decreased activity from recent hospitalization, present on admission. 2. Acute congestive heart failure exacerbation from diastolic dysfunction. Ejection fraction 55-60%, now euvolemic. 3. Moderate mitral regurgitation, nonrheumatic. 4. Rheumatoid arthritis bilateral, severe in both hands. 5. Patchy pneumonia suspect gram-negative organism. 6. Hard of hearing. 7. Coronary artery disease with prior history of myocardial infarction. 8. Macrocytic anemia cause undetermined. 9. Benign prostatic hypertrophy. 10.Chronic insomnia, multifactorial. PLAN: Patient overall doing much better. We will switch the patient over to p.o. Augmentin. IV cefepime can be discontinued. Care was discussed with the patient. Possible looking at discharge in 24 hours. MMODL / IJN: [id number] /
[2017-12-15] MEDS: IPRATROPIUM-ALBUTEROL 3 ML NEB INHALATION SCH ×4 (07:12→20:27)
[2017-12-15] MEDS: TAMSULOSIN 0.4 MG CAP.ER.24H PO SCH (08:18)
[2017-12-15] MEDS: ENOXAPARIN 80 MG/0.8 ML SYRINGE SQ SCH (08:18)
[2017-12-15] MEDS: guaiFENesin 600 MG TABLET.ER PO SCH ×2 (08:18→20:50)
[2017-12-15] MEDS: MELOXICAM 7.5 MG TAB PO SCH (08:18)
[2017-12-15] MEDS: FINASTERIDE 5 MG TAB PO SCH (08:18)
[2017-12-15] MEDS: CYANOCOBALAMIN 500 MCG TAB PO SCH (08:18)
[2017-12-15] MEDS: ASCORBIC ACID 500 MG TAB PO SCH (08:19)
[2017-12-15] MEDS: ASPIRIN 81 MG PO SCH (08:19)
[2017-12-15] MEDS: FUROSEMIDE 40 MG TAB PO SCH ×2 (08:19→15:42)
[2017-12-15] MEDS: AMOXIC-POT CLAV 875-125MG 1 EACH TAB PO SCH ×2 (08:19→20:50)
[2017-12-15] MEDS: FAMOTIDINE 20 MG TAB PO SCH ×2 (08:19→20:50)
[2017-12-15] MEDS: FERROUS SULFATE 325 MG TAB PO SCH (08:19)
[2017-12-15 08:39] LABS: Calcium 8.8 mg/dL (8.4-10.2)
--- NOTE | 2017-12-15 09:43 | P.PN ---
Subjective Progress Note Date: 12/15/17 Principal diagnosis: Dyspnea, multifactorial, partly due to recent MRSA pneumonia, pulmonary embolisms, and acute exacerbation of diastolic congestive heart failure This is a pleasant 77-year-old gentleman who follows with Dr. Gonzalez as his primary care physician. He has a history of myocardial infarction, congestive heart failure, DVT, recent admission to [facility] for MRSA pneumonia with an extended stay subsequent transfer to inpatient rehabilitation and then discharged home. He states he's been home approximately 1 month and had developed increasing shortness breath weakness chest pain was seen by his PCP yesterday and referred here for the same. He states he was told he has fluid in his lungs and pneumonia. His chest x-ray does show evidence of congestive heart failure and some left lower lobe opacity. He has been afebrile. Maintaining O2 saturations in the 90s on room air. White count 10.5. Hemoglobin 8.2. Creatinine 0.86. ProBNP 766. He has been initiated on Lasix 40 mg every 12 hours. Echocardiogram revealed preserved left ventricular systolic function with ejection fraction 50-55%. No pulmonary hypertension. Doppler of the lower extremities negative. Patient is a lifelong nonsmoker. No previous pulmonary issues prior to his recent admission. From there he was discharged home on Symbicort and albuterol. On today's evaluation of 12/11/2017. The patient is having a congested cough and he is bringing up some yellow sputum. No hemoptysis. No pleurisy. He has chronic edema of the left lower extremity and currently is on diuretics. 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 He is a lifetime nonsmoker. The patient denies having any chest pain. No fever or chills. Computed tomography scan of the chest was reviewed and there is a suspicion for a segmental and subsegmental left upper lobe and right lower lobe pulmonary emboli. For that reason the patient was started on Lovenox. There is also groundglass changes and infiltration of the right upper lobe. Some chronic inflammatory changes in the lower lobes and there are some changes consistent with paraseptal emphysema and some limited scarring involving the lung bases and this raises the possibility of interstitial lung disease secondary to rheumatoid arthritis. The patient also has some loculated pleural effusion lung bases bilaterally right more than left. He was diagnosed and treated for MRSA pneumonia back in October at [facility]. The patient is currently on a combination of cefepime, Levaquin and vancomycin. The patient is also being diuresed IV Lasix. I'll cardiac exam shows a preserved LV function. No leukocytosis. Doppler of the left lower extremity shows no evidence of any DVT On today's evaluation of 12/12/2017, the patient is coughing less of his sputum. The sputum sample has been collected yet the final results and the cultures of that resulted yet. No chest pain. He is still winded has shortness of breath. He is on a combination of IV cefepime, IV Levaquin and vancomycin and was admitted by the coverage for healthcare history of pneumonia. The patient is also on IV Lasix and he is having improvement in lower extremity edema. Has been switched to oral Eliquis for long-term anticoagulation. On 12/13/2017 patient seen in follow-up on medical surgical floor. Patient is sitting up at the bedside, in no acute distress, room air pulse ox is 92%, hemodynamically stable, he is afebrile, no fever or chills, no chest wall discomfort, no hemoptysis. Lung sounds are clear to auscultation. Sputum and blood cultures remain negative. Patient is being treated with a combination of cefepime, Levaquin and vancomycin. Today's lab work has been reviewed, WBC is 12.2, hemoglobin is 9.3, electrolytes are within normal limits, BUN is 37 creatinine is 1.0. Likely patient denies any distress, is breathing easier, his weight is down 4.6 kg in the last 24 hours. Patient is diuresing, currently on Lasix 40 mg every 12 hours. No fever, no chills, no chest congestion. Remains in sinus rhythm with controlled rate, he has 2+ edema in his left lower extremity, and trace edema in his right, both legs were Arya wraps. On 12/14/2017 patient seen in follow-up on medical surgical floor. He slept in the chair last night, he states when he lays down he has coughing spells. Denies any acute distress, has a mild headache today, but denies any dyspnea. At the on 2 L per nasal cannula his pulse ox is 96%, low-grade fever this morning, of 99.1F, hemodynamically stable. Lung sounds most likely clear, with minimal right lower lobe crackles. No fever, no chills, microbiology results of been reviewed, and remain negative. Patient remains on empiric antibiotics in the form of cefepime and Levaquin, vancomycin has been discontinued. Remains on IV diuretics at 40 mg IV every 12 hours. Improvement in left lower extremity edema noted, both legs are Arya wrapped. On 12/15/2017 patient seen in follow-up on medical surgical floor. As been sleeping in the chair, with his legs dependent, days he has been sleeping in his chair even at home. States laying down brings on severe coughing spells. Reports less nauseous today, no vomiting, is bringing up mild to moderate amount of clear sputum. Afebrile, hemodynamically stable, he remains on 2 L per nasal cannula and his pulse ox is 97%, sputum and blood cultures remain negative. Lung sounds are positive for coarse rales at the right lower lobe, diminished over left lower lobe. Yesterday we discontinued Levaquin, in view of a potential of prolonging INR. Cefepime was discontinued per attending, and patient is currently on oral Augmentin. She received 5 mg of Coumadin last night, we'll repeat his INR today. Remains on subcutaneous Lovenox at therapeutic doses of 80 mg twice a day Objective - Vital Signs Vital signs: Vital Signs Temp 98.0 F 12/15/17 06:24 Pulse 90 12/15/17 07:24 Resp 18 12/15/17 06:24 BP 99/58 12/15/17 06:24 Pulse Ox 97 12/15/17 06:24 Intake & Output 12/14/17 12/15/17 12/15/17 18:59 06:59 18:59 Output Total 825 Balance -825 Weight 75 kg Output: Urine 825 - Exam - Constitutional General appearance: average body habitus, disheveled, no acute distress - EENT Eyes: EOMI, PERRLA ENT: hard of hearing Ears: bilateral: normal - Neck Neck: normal ROM Carotids: bilateral: upstroke normal Thyroid: bilateral: normal size - Respiratory Respiratory: Breath sounds are mostly clear, with coarse crackles at the right lower base, diminished at the left lower base - Cardiovascular Rhythm: regular Heart sounds: normal: S1, S2. 1+ edema and left lower extremity, and trace edema in the right. Bilateral lower extremities are arya wrapped - Gastrointestinal General gastrointestinal: normal bowel sounds - Integumentary Integumentary: normal turgor - Neurologic Neurologic: CNII-XII intact - Musculoskeletal Musculoskeletal: generalized weakness - Psychiatric Psychiatric: A&O x's 3, appropriate affect, intact judgment & insight - Labs CBC & Chem 7: 12/13/17 07:16 12/15/17 07:55 Labs: Abnormal Lab Results - Last 24 Hours (Table) 12/15/17 Range/Units 07:55 Sodium 136 L (137-145) mmol/L Carbon Dioxide 31 H (22-30) mmol/L BUN 45 H (9-20) mg/dL Glucose 100 H (74-99) mg/dL Microbiology - Last 24 Hours (Table) 12/09/17 22:25 Blood Culture - Preliminary Blood No Growth after 120 hours Assessment and Plan Plan: Assessment: 1 dyspnea which is multifactorial. The patient obviously was treated for an MRSA pneumonia back in October 2017 and he completed a course of vancomycin. 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 2 coronary artery disease 3 chronic lower extremity edema/lymphedema 4 chronic anemia 5 previous history of MRSA pneumonia 6 BPH Plan Repeat INR, we'll obtain repeat chest x-ray. Antibiotics have been streamlined to oral Augmentin, cultures remain negative, afebrile, vital signs are stable. We'll review today's chest x-ray, but clinically patient is improving, IV diuretics have been transitioned to oral. I performed a history & physical examination of the patient and discussed their management with my nurse practitioner, Amber Ricci. I reviewed the nurse practitioner's note and agree with the documented findings and plan of care. Lung sounds are mostly clear. The findings and the impression was discussed with the patient. I attest to the documentation by the nurse practitioner. Time with Patient: Less than 30
[2017-12-15 11:34] LABS: Anisocytosis Slight; Basophils # (A) 0.1 k/uL (0-0.2); Basophils % (A) 1 %; Eosinophils # (A) 1.2 k/uL (0-0.7); Eosinophils % (A) 13 %; HGB 8.7 gm/dL (13.0-17.5); Hypochromasia Moderate; Lymphocytes # (A) 1.2 k/uL (1.0-4.8); Lymphocytes % (A) 12 %; MCH 24.4 pg (25.0-35.0); Mean Platelet Volume 6.8; Microcytosis Slight; Monocytes # (A) 0.8 k/uL (0-1.0); Monocytes % (A) 8 %; Neutrophils # (A) 6.2 k/uL (1.3-7.7); Neutrophils % (A) 65 %; Platelet Count 367 k/uL (150-450); RBC 3.54 m/uL (4.30-5.90); RDW 17.6 % (11.5-15.5); WBC 9.6 k/uL (3.8-10.6)
--- NOTE | 2017-12-15 11:54 | P.PN ---
Subjective Mr. Erazo is seen and examined sitting up in the chair. He denies shortness of breath, chest pain, dizziness, palpitations or any further nausea/vomiting since yesterday. Lasix was changed to PO yesterday evening. Laboratory data reviewed, hemoglobin 8.7, platelets 367, sodium 136, potassium 5.0, creatinine 1.14. Blood pressure this morning 99/58 heart rate 90 afebrile maintaining oxygen saturation on nasal cannula 2 L. Objective - Vital Signs Vital signs: Vital Signs Temp 98.0 F 12/15/17 06:24 Pulse 90 12/15/17 11:29 Resp 18 12/15/17 08:18 BP 99/58 12/15/17 06:24 Pulse Ox 97 12/15/17 06:24 Intake & Output 12/14/17 12/15/17 12/15/17 18:59 06:59 18:59 Intake Total 200 Output Total 825 Balance -825 200 Weight 75 kg Intake: Oral 200 Output: Urine 825 - Exam GENERAL: Well-appearing, well-nourished and in no acute distress. NECK: Supple without JVD or thyromegaly. LUNGS: Breath sounds clear to auscultation bilaterally. Respiration equal and unlabored. No wheezes, rales or rhonchi. Diminished bilaterally. HEART: Regular rate and rhythm with systolic ejection murmur at the base, no rubs or gallops. S1 and S2 heard. EXTREMITIES: Normal range of motion, ongoing 2+ pitting edema left lower extremity, no edema to right lower extremity. No clubbing or cyanosis. Peripheral pulses intact. - Labs CBC & Chem 7: 12/15/17 11:07 12/15/17 07:55 Labs: Abnormal Lab Results - Last 24 Hours (Table) 12/15/17 12/15/17 Range/Units 07:55 11:07 RBC 3.54 L (4.30-5.90) m/uL Hgb 8.7 L (13.0-17.5) gm/dL Hct 28.0 L (39.0-53.0) % MCV 79.0 L (80.0-100.0) fL MCH 24.4 L (25.0-35.0) pg RDW 17.6 H (11.5-15.5) % Eosinophils # 1.2 H (0-0.7) k/uL Sodium 136 L (137-145) mmol/L Carbon Dioxide 31 H (22-30) mmol/L BUN 45 H (9-20) mg/dL Glucose 100 H (74-99) mg/dL Microbiology - Last 24 Hours (Table) 12/09/17 22:25 Blood Culture - Preliminary Blood No Growth after 120 hours Assessment and Plan Assessment: ASSESSMENT Acute on chronic diastolic heart failure with preserved EF. Pneumonia with bilateral pleural effusions Elevated d-dimer Microcytic hypochromic anemia History of lyme disease Leukocytosis Febrile illness Pulmonary embolism PLAN Stable from a cardiac perspective. Continue current medical regimen. We will continue to follow as needed for the remainder of his hospitalization. He suffered a call with further questions or concerns. Follow-up with Dr. Ragland in 2-3 weeks. Nurse Practitioner note has been reviewed, I agree with a documented findings and plan of care. Patient was seen and examined.
[2017-12-15 12:17] LABS: INR 3.1 (<1.2); Prothrombin Time 27.8 sec (9.0-12.0)
[2017-12-15 12:36] LABS: Calcium 8.9 mg/dL (8.4-10.2); Potassium 4.2 mmol/L (3.5-5.1)
--- NOTE | 2017-12-15 14:34 | XR ---
EXAMINATION TYPE: XR chest 2V DATE OF EXAM: 12/15/2017 COMPARISON: 12/13/2017 INDICATION: Left lower lobe pneumonia TECHNIQUE: Frontal and lateral views of the chest are obtained. FINDINGS: The heart size is normal. The pulmonary vasculature is prominent. There is diffuse increased lung markings. This may be more focal in the left lower lobe. This is impr oving from comparison. Small left pleural effusion is present. Minimal right pleural effusion remains present.. IMPRESSION: 1. Probably left lower lobe infiltrate. 2. Diffuse infiltrate remains present. Some superimposed pulmonary edema may be present. Atelectasis could also be considered. Infectious etiology is not excluded. 3. Small bilateral pleural effusions.
[2017-12-15 15:16] VITALS: RESP 16
[2017-12-15] MEDS: WARFARIN 5 MG TAB PO SCH (17:31)
--- NOTE | 2017-12-15 22:28 | PN ---
PROGRESS NOTE DATE OF SERVICE: 12/15/2017 PRESENTING COMPLAINT: Tired. INTERVAL HISTORY: Patient with CHF exacerbation, pneumonia and acute pulmonary embolism. Continues to do better. Tolerating a diet. Edema is slowly coming down. Has been switched to p.o. Lasix and oral antibiotics. REVIEW OF SYSTEMS: Done for constitutional, cardiovascular, GI, pulmonary; relevant findings as above. The patient is able to get to the bathroom. CURRENT MEDICATIONS: Reviewed. EXAMINATION: Temperature 97.5, pulse 90, respirations 16, blood pressure 108/56 pulse ox 98% on 2L. GENERAL APPEARANCE: Sitting up, more awake. EYES: Pupils equal. Conjunctivae normal. HEENT: External nose and ears normal. Oral cavity normal. Decreased hearing. NECK: JVD not raised. Mass not palpable. RESPIRATORY: Effort normal. LUNGS: Diminished breath sounds. CARDIOVASCULAR: First and second sounds normal. Decreased edema. ABDOMEN: Soft, nontender. Liver and spleen not palpable. PSYCHIATRY: Awake, answering questions. INVESTIGATIONS: White count 9.6, hemoglobin 8.7, INR 3.1. Potassium 4.2, BUN 42, creatinine 1.10. ASSESSMENT: 1. Acute bilateral pulmonary embolism due to decreased activity from recent hospitalization, present on admission. 2. Acute congestive heart failure exacerbation from diastolic dysfunction, ejection fraction 55%-60%, now euvolemic. 3. Moderate mitral regurgitation, nonrheumatic. 4. Rheumatoid arthritis, bilateral, severe in both the hands. 5. Patchy pneumonia, suspect gram-negative organism with clinical improvement. 6. Hard of hearing. 7. Coronary artery disease with prior history of myocardial infarction. 8. Macrocytic anemia, cause undetermined. 9. Benign prostatic hypertrophy. 10.Chronic insomnia, multifactorial. PLAN: Patient overall doing much better. Looking at INR has also become therapeutic, Lovenox can be discontinued tomorrow. Care was discussed with the patient. MMODL / IJN: [id number] /
[2017-12-16 06:20] VITALS: BP 119/51; TEMP 97.7
[2017-12-16] MEDS: IPRATROPIUM-ALBUTEROL 3 ML NEB INHALATION SCH ×3 (07:09→15:31)
[2017-12-16 07:46] LABS: INR 3.7 (<1.2); Prothrombin Time 32.9 sec (9.0-12.0)
[2017-12-16] MEDS: CYANOCOBALAMIN 500 MCG TAB PO SCH (09:36)
[2017-12-16] MEDS: FINASTERIDE 5 MG TAB PO SCH (09:36)
[2017-12-16] MEDS: guaiFENesin 600 MG TABLET.ER PO SCH (09:36)
[2017-12-16] MEDS: MELOXICAM 7.5 MG TAB PO SCH (09:37)
[2017-12-16] MEDS: FERROUS SULFATE 325 MG TAB PO SCH (09:37)
[2017-12-16] MEDS: TAMSULOSIN 0.4 MG CAP.ER.24H PO SCH (09:37)
[2017-12-16] MEDS: FUROSEMIDE 40 MG TAB PO SCH (09:37)
[2017-12-16] MEDS: FAMOTIDINE 20 MG TAB PO SCH (09:37)
[2017-12-16] MEDS: AMOXIC-POT CLAV 875-125MG 1 EACH TAB PO SCH (09:38)
[2017-12-16] MEDS: ASPIRIN 81 MG PO SCH (09:38)
[2017-12-16] MEDS: ASCORBIC ACID 500 MG TAB PO SCH (09:38)
[2017-12-16 10:29] VITALS: BMI 27.5
[2017-12-16 10:58] VITALS: PULSE 92
--- NOTE | 2017-12-16 12:35 | P.PN ---
Subjective Progress Note Date: 12/16/17 Principal diagnosis: Dyspnea, multifactorial, partly due to recent MRSA pneumonia, pulmonary embolisms, and acute exacerbation of diastolic congestive heart failure This is a pleasant 77-year-old gentleman who follows with Dr. Gonzalez as his primary care physician. He has a history of myocardial infarction, congestive heart failure, DVT, recent admission to [facility] for MRSA pneumonia with an extended stay subsequent transfer to inpatient rehabilitation and then discharged home. He states he's been home approximately 1 month and had developed increasing shortness breath weakness chest pain was seen by his PCP yesterday and referred here for the same. He states he was told he has fluid in his lungs and pneumonia. His chest x-ray does show evidence of congestive heart failure and some left lower lobe opacity. He has been afebrile. Maintaining O2 saturations in the 90s on room air. White count 10.5. Hemoglobin 8.2. Creatinine 0.86. ProBNP 766. He has been initiated on Lasix 40 mg every 12 hours. Echocardiogram revealed preserved left ventricular systolic function with ejection fraction 50-55%. No pulmonary hypertension. Doppler of the lower extremities negative. Patient is a lifelong nonsmoker. No previous pulmonary issues prior to his recent admission. From there he was discharged home on Symbicort and albuterol. On today's evaluation of 12/11/2017. The patient is having a congested cough and he is bringing up some yellow sputum. No hemoptysis. No pleurisy. He has chronic edema of the left lower extremity and currently is on diuretics. 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 He is a lifetime nonsmoker. The patient denies having any chest pain. No fever or chills. Computed tomography scan of the chest was reviewed and there is a suspicion for a segmental and subsegmental left upper lobe and right lower lobe pulmonary emboli. For that reason the patient was started on Lovenox. There is also groundglass changes and infiltration of the right upper lobe. Some chronic inflammatory changes in the lower lobes and there are some changes consistent with paraseptal emphysema and some limited scarring involving the lung bases and this raises the possibility of interstitial lung disease secondary to rheumatoid arthritis. The patient also has some loculated pleural effusion lung bases bilaterally right more than left. He was diagnosed and treated for MRSA pneumonia back in October at [facility]. The patient is currently on a combination of cefepime, Levaquin and vancomycin. The patient is also being diuresed IV Lasix. I'll cardiac exam shows a preserved LV function. No leukocytosis. Doppler of the left lower extremity shows no evidence of any DVT On today's evaluation of 12/12/2017, the patient is coughing less of his sputum. The sputum sample has been collected yet the final results and the cultures of that resulted yet. No chest pain. He is still winded has shortness of breath. He is on a combination of IV cefepime, IV Levaquin and vancomycin and was admitted by the coverage for healthcare history of pneumonia. The patient is also on IV Lasix and he is having improvement in lower extremity edema. Has been switched to oral Eliquis for long-term anticoagulation. On 12/13/2017 patient seen in follow-up on medical surgical floor. Patient is sitting up at the bedside, in no acute distress, room air pulse ox is 92%, hemodynamically stable, he is afebrile, no fever or chills, no chest wall discomfort, no hemoptysis. Lung sounds are clear to auscultation. Sputum and blood cultures remain negative. Patient is being treated with a combination of cefepime, Levaquin and vancomycin. Today's lab work has been reviewed, WBC is 12.2, hemoglobin is 9.3, electrolytes are within normal limits, BUN is 37 creatinine is 1.0. Likely patient denies any distress, is breathing easier, his weight is down 4.6 kg in the last 24 hours. Patient is diuresing, currently on Lasix 40 mg every 12 hours. No fever, no chills, no chest congestion. Remains in sinus rhythm with controlled rate, he has 2+ edema in his left lower extremity, and trace edema in his right, both legs were Arya wraps. On 12/14/2017 patient seen in follow-up on medical surgical floor. He slept in the chair last night, he states when he lays down he has coughing spells. Denies any acute distress, has a mild headache today, but denies any dyspnea. At the on 2 L per nasal cannula his pulse ox is 96%, low-grade fever this morning, of 99.1F, hemodynamically stable. Lung sounds most likely clear, with minimal right lower lobe crackles. No fever, no chills, microbiology results of been reviewed, and remain negative. Patient remains on empiric antibiotics in the form of cefepime and Levaquin, vancomycin has been discontinued. Remains on IV diuretics at 40 mg IV every 12 hours. Improvement in left lower extremity edema noted, both legs are Arya wrapped. On 12/15/2017 patient seen in follow-up on medical surgical floor. As been sleeping in the chair, with his legs dependent, days he has been sleeping in his chair even at home. States laying down brings on severe coughing spells. Reports less nauseous today, no vomiting, is bringing up mild to moderate amount of clear sputum. Afebrile, hemodynamically stable, he remains on 2 L per nasal cannula and his pulse ox is 97%, sputum and blood cultures remain negative. Lung sounds are positive for coarse rales at the right lower lobe, diminished over left lower lobe. Yesterday we discontinued Levaquin, in view of a potential of prolonging INR. Cefepime was discontinued per attending, and patient is currently on oral Augmentin. She received 5 mg of Coumadin last night, we'll repeat his INR today. Remains on subcutaneous Lovenox at therapeutic doses of 80 mg twice a day. On 12/16/2017 patient seen in follow-up on medical surgical floor. He is awake and alert, in no acute distress, no dyspnea, no chest pain, bilateral lower extremity edema proved, although patient still has residual pedal and ankle edema, bilateral lower extremities are Arya wrapped, patient's IV diuretics have been transitioned to oral Lasix. He is maintaining negative fluid balance. Today's exam reveals clear breath sounds, no rhonchi, no wheezes or rales. Cor biology results and reviewed, blood and sputum cultures are negative. Since antibiotic coverage has been streamlined to oral Augmentin. Patient remains afebrile. Today's INR is 3.7, patient received 5 mg of Coumadin last night, we discontinued the next. Objective - Vital Signs Vital signs: Vital Signs Temp 97.7 F 12/16/17 06:19 Pulse 92 12/16/17 10:57 Resp 16 12/16/17 06:19 BP 119/51 12/16/17 06:19 Pulse Ox 94 L 12/16/17 06:19 Intake & Output 08/12/2512/16/17 12/16/17 18:59 06:59 18:59 Intake Total 200 Balance 200 Weight 79.7 kg 79.7 kg Intake: Oral 200 Other: Voiding Method Toilet Toilet Urinal Urinal - Exam - Constitutional General appearance: average body habitus, no acute distress - EENT Eyes: EOMI, PERRLA ENT: hard of hearing Ears: bilateral: normal - Neck Neck: normal ROM Carotids: bilateral: upstroke normal Thyroid: bilateral: normal size - Respiratory Respiratory: Breath sounds are mostly clear, no rhonchi, no wheezes, no rales - Cardiovascular Rhythm: regular Heart sounds: normal: S1, S2. 1+ edema and left lower extremity, and trace edema in the right. Bilateral lower extremities are arya wrapped - Gastrointestinal General gastrointestinal: normal bowel sounds - Integumentary Integumentary: normal turgor - Neurologic Neurologic: CNII-XII intact - Musculoskeletal Musculoskeletal: generalized weakness - Psychiatric Psychiatric: A&O x's 3, appropriate affect, intact judgment & insight - Labs CBC & Chem 7: 12/15/17 11:07 12/15/17 11:07 Labs: Abnormal Lab Results - Last 24 Hours (Table) 12/15/17 12/16/17 Range/Units 11:07 06:58 PT 32.9 H (9.0-12.0) sec INR 3.7 H (<1.2) BUN 42 H (9-20) mg/dL Glucose 136 H (74-99) mg/dL Microbiology - Last 24 Hours (Table) 12/09/17 22:25 Blood Culture - Final Blood No Growth after 144 hours Assessment and Plan Plan: Assessment: 1 dyspnea which is multifactorial. The patient obviously was treated for an MRSA pneumonia back in October 2017 and he completed a course of vancomycin. 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 2 coronary artery disease 3 chronic lower extremity edema/lymphedema 4 chronic anemia 5 previous history of MRSA pneumonia 6 BPH Plan He is stable, and clinically improving, he is on room air, in no acute distress , lung sounds are clear, afebrile, vital signs are stable, yesterday's chest x- ray has been reviewed, and overall there has been improvement in appearance of bilateral pleural effusions, more so on the right, and there is persistence of diffuse infiltrates, and atelectasis. Sputum and blood cultures remain negative , IV diuretics transitioned to oral, today's INR is 3.7, and patient will be going home on Coumadin for his pulmonary embolisms. Patient is cleared for discharge home today from pulmonary standpoint, he can complete outpatient course of oral Augmentin, he will need follow-up with Dr. Murillo in the office in 7-10 days. I performed a history & physical examination of the patient and discussed their management with my nurse practitioner, Amber Ricci. I reviewed the nurse practitioner's note and agree with the documented findings and plan of care. Lung sounds are mostly clear. The findings and the impression was discussed with the patient. I attest to the documentation by the nurse practitioner. Time with Patient: Less than 30
--- NOTE | 2017-12-16 23:26 | DS ---
DISCHARGE SUMMARY DATE OF ADMISSION: 12/10/2017 DATE OF DISCHARGE: 12/16/2017 FINAL DIAGNOSES: 1. Acute bilateral pulmonary embolism from decreased activity recently during hospitalization. 2. Acute congestive heart failure exacerbation from diastolic dysfunction, ejection fraction 55% to 60%. 3. Moderate mitral regurgitation, non-rheumatic. 4. Severe bilateral rheumatoid arthritis, especially in the hands. 5. Patchy pneumonia; suspect gram-negative organism. 6. Hard of hearing. 7. Coronary artery disease with prior history of myocardial infarction. 8. Macrocytic anemia; cause unknown. 9. Benign prostatic hypertrophy. 10.Chronic insomnia, multifactorial. HOSPITAL COURSE: This very pleasant gentleman was recently in an outside hospital for pneumonia and CHF. He presented short of breath with a cough. He was found to have pneumonia, fluid overload and bilateral pulmonary embolism as defined by chest CTA. Patient was put on anticoagulation, and INR was therapeutic at 3.7 at the time of discharge. Patient was to hold today's dose of Coumadin and resume it at 2.5 from tomorrow. Patient overall is feeling better, tolerating a diet. On examination, lungs reveal decreased breath sounds. Edema is decreased. CONSULTATIONS: 1. Dr. Murillo from Pulmonary. 2. Dr. Little from Cardiology. The patient did have a 2-D echocardiogram that showed EF of 50% to 55% and moderate mitral regurgitation. DISCHARGE MEDICATIONS: 1. Ventolin 2.5 q.6. 2. Vitamin C 500 mg a day. 3. Aspirin 81 mg a day. 4. Proscar 5 mg a day. 5. Meloxicam 15 mg a day. 6. Flomax 0.4 mg a day. 7. Symbicort 160/4.5 two puffs b.i.d. 8. Iron 325 p.o. b.i.d. 9. Vitamin B12 500 mcg a day. 10.Augmentin 875 one tablet q.12; 10 tablets. 11.Pepcid 20 mg b.i.d. 12.Lasix 40 mg b.i.d. 13.Coumadin 2.5 mg p.o. daily. 14.Pepcid 20 mg b.i.d. Follow up with Dr. Ponce Gonzalez on 12/20/2017. Follow up with Dr. Mejia on 12/31/2017. Follow up with Dr. Jack Ragland on 12/28/2017. Labs CBC, BMP, INR in 3 days. The patient was reminded to start his Coumadin 2.5 mg starting tomorrow. Discussion and discharge planning more than 35 minutes. MEMO / JUANCHON: [id number] /
== END 2017-12-16 15:37 | disposition home or self-care (01) | DRG 177 ==
LOC: EC 20:48 → 4MS4W 12-10 00:34
PROVIDERS: ADMIT Hospitalist; ATTEND Hospitalist
DX: J15.6 Pneumonia due to other Gram-negative bacteria (principal); I26.99 Other pulmonary embolism without acute cor pulmonale; I50.33 Acute on chronic diastolic (congestive) heart failure; J43.9 Emphysema, unspecified; M06.9 Rheumatoid arthritis, unspecified; D53.9 Nutritional anemia, unspecified; H91.90 Unspecified hearing loss, unspecified ear; D50.9 Iron deficiency anemia, unspecified; N40.0 Benign prostatic hyperplasia without lower urinary tract symptoms; F51.04 Psychophysiologic insomnia; I89.0 Lymphedema, not elsewhere classified; I08.0 Rheumatic disorders of both mitral and aortic valves; I25.10 Atherosclerotic heart disease of native coronary artery without angina pectoris; I87.8 Other specified disorders of veins; I25.2 Old myocardial infarction; Z79.82 Long term (current) use of aspirin; Z79.51 Long term (current) use of inhaled steroids; Z79.1 Long term (current) use of non-steroidal anti-inflammatories (NSAID); Z79.899 Other long term (current) drug therapy; Z86.14 Personal history of Methicillin resistant Staphylococcus aureus infection; Z86.718 Personal history of other venous thrombosis and embolism; Z87.01 Personal history of pneumonia (recurrent); Z87.891 Personal history of nicotine dependence; Z86.19 Personal history of other infectious and parasitic diseases
CPT/HCPCS: 36415; 71046; 71275; 80048; 80053; 80202; 81003; 82550; 82553; 83605; 83735; 83880; 84484; 85025; 85379; 85610; 85730; 87040; 87070; 87205; 93005; 93306; 94640; 96365; 96375; 99285

== ENCOUNTER 2017-12-20 19:54 | Inpatient (IN) | payer MEDICARE ==
[2017-12-20] MEDS ORDERED: ALBUTEROL NEBULIZED 2.5 MG/3 ML INHALATION STA (20:31)
[2017-12-20] MEDS ORDERED: IPRATROPIUM 0.5 MG/2.5 ML NEBU INHALATION STA (20:31)
--- NOTE | 2017-12-20 20:46 | ED ---
General Adult HPI - General Chief complaint: Shortness of Breath Stated complaint: SOB Time Seen by Provider: 12/20/17 20:05 Source: patient, RN notes reviewed, old records reviewed Mode of arrival: wheelchair Limitations: no limitations - History of Present Illness Initial comments: This is a 69-year-old male the ER for evaluation shortness of breath. Patient was recently admitted and discharged hospital from heart failure. Since discharge patient has had Increasing shortness of breath denies fevers denies chest pain. - Related Data Home Medications Medication Instructions Recorded Confirmed Albuterol Nebulized [Ventolin 2.5 mg INHALATION RT-Q6H 12/09/17 12/20/17 Nebulized] Ascorbic Acid [Vitamin C] 500 mg PO DAILY 12/09/17 12/20/17 Aspirin 81 mg PO DAILY 12/09/17 12/20/17 Finasteride [Proscar] 5 mg PO DAILY 12/09/17 12/20/17 Meloxicam 15 mg PO DAILY 12/09/17 12/20/17 Tamsulosin HCl [Flomax] 0.4 mg PO DAILY 12/09/17 12/20/17 Budesonide/Formoterol Fumarate 2 puff INHALATION RT-BID 12/10/17 12/20/17 [Symbicort 160-4.5 Mcg Inhaler] Ferrous Sulfate [Iron (65 MG 325 mg PO BID 12/10/17 12/20/17 Elemental)] Cyanocobalamin [Vitamin B-12] 500 mcg PO DAILY 12/11/17 12/20/17 Amoxic-Pot Clav 875-125Mg 1 tab PO Q12HR 12/20/17 12/20/17 [Augmentin 875-125] Previous Rx's Medication Instructions Recorded Famotidine [Pepcid] 20 mg PO BID #60 tab 12/16/17 Furosemide [Lasix] 40 mg PO BID@0900,1600 #60 tab 12/16/17 Warfarin [Coumadin] 2.5 mg PO DAILY@1800 #30 tab 12/16/17 Allergies Allergy/AdvReac Type Severity Reaction Status Date / Time No Known Allergies Allergy Verified 12/20/17 20:45 Review of Systems ROS Statement: Those systems with pertinent positive or pertinent negative responses have been documented in the HPI. ROS Other: All systems not noted in ROS Statement are negative. Past Medical History Past Medical History: Heart Failure, Myocardial Infarction ([place]) Additional Past Medical History / Comment(s): resp failure, dvt, anemia History of Any Multi-Drug Resistant Organisms: MRSA Date of last positivie culture/infection: 10/12/17 (Romario Alcala) MDRO Source:: Sputum Past Surgical History: No Surgical Hx Reported Past Anesthesia/Blood Transfusion Reactions: No Reported Reaction Past Psychological History: No Psychological Hx Reported Smoking Status: Never smoker Past Alcohol Use History: None Reported Past Drug Use History: None Reported - Past Family History Father History Unknown: Yes General Exam Limitations: no limitations General appearance: alert, in no apparent distress Head exam: Present: atraumatic, normocephalic, normal inspection Eye exam: Present: normal appearance, PERRL, EOMI. Absent: scleral icterus, conjunctival injection, periorbital swelling ENT exam: Present: normal exam, mucous membranes moist Neck exam: Present: normal inspection. Absent: tenderness, meningismus, lymphadenopathy Respiratory exam: Present: normal lung sounds bilaterally, accessory muscle use , decreased breath sounds, prolonged expiratory. Absent: respiratory distress, wheezes, rales, rhonchi, stridor Cardiovascular Exam: Present: normal rhythm, tachycardia, normal heart sounds. Absent: systolic murmur, diastolic murmur, rubs, gallop, clicks GI/Abdominal exam: Present: soft, normal bowel sounds. Absent: distended, tenderness, guarding, rebound, rigid Extremities exam: Present: normal inspection, full ROM, normal capillary refill. Absent: tenderness, pedal edema, joint swelling, calf tenderness Back exam: Present: normal inspection Neurological exam: Present: alert, oriented X3, CN II-XII intact Psychiatric exam: Present: normal affect, normal mood Skin exam: Present: warm, dry, intact, normal color. Absent: rash Course Vital Signs 12/20/17 12/20/17 12/20/17 20:24 20:44 21:14 Temperature 98.4 F Pulse Rate 110 H 111 H 117 H Respiratory 26 H Rate Blood Pressure 102/56 O2 Sat by Pulse 92 L Oximetry 12/20/17 12/20/17 12/20/17 21:16 21:27 21:38 Temperature Pulse Rate 113 H 111 H 115 H Respiratory 20 Rate Blood Pressure 104/65 O2 Sat by Pulse 99 Oximetry 12/20/17 12/20/17 22:20 23:22 Temperature 100.2 F H Pulse Rate 116 H 117 H Respiratory 20 20 Rate Blood Pressure 113/74 127/73 O2 Sat by Pulse 95 95 Oximetry - Reevaluation(s) Reevaluation #1: 12/20/17 20:45 Prior ER visit and hospitalization are reviewed EKG Findings - EKG Comments: EKG Findings:: EKG shows sinus tachycardia rate 108, MN 140, QRS 94, QTc 466 Medical Decision Making - Medical Decision Making 77 male the ER with significant COPD CHF exacerbation. Patient has heart failure, pneumonia recurrent with failure of outpatient treatment, patient will be admitted - Lab Data Result diagrams: 12/21/17 07:47 12/20/17 20:40 Lab Results 12/20/17 12/20/17 12/20/17 Range/Units 20:40 20:40 20:40 WBC 10.2 (3.8-10.6) k/uL RBC 3.98 L (4.30-5.90) m/uL Hgb 9.8 L (13.0-17.5) gm/dL Hct 31.1 L (39.0-53.0) % MCV 78.1 L (80.0-100.0) fL MCH 24.5 L (25.0-35.0) pg MCHC 31.3 (31.0-37.0) g/dL RDW 17.1 H (11.5-15.5) % Plt Count 355 (150-450) k/uL Neutrophils % 65 % Lymphocytes % 11 % Monocytes % 9 % Eosinophils % 11 % Basophils % 1 % Neutrophils # 6.7 (1.3-7.7) k/uL Lymphocytes # 1.2 (1.0-4.8) k/uL Monocytes # 0.9 (0-1.0) k/uL Eosinophils # 1.1 H (0-0.7) k/uL Basophils # 0.1 (0-0.2) k/uL Hypochromasia Moderate Poikilocytosis Slight Anisocytosis Slight Microcytosis Slight PT (9.0-12.0) sec INR (<1.2) APTT (22.0-30.0) sec D-Dimer (<0.60) mg/L FEU Sodium 138 (137-145) mmol/L Potassium 3.9 (3.5-5.1) mmol/L Chloride 97 L (98-107) mmol/L Carbon Dioxide 34 H (22-30) mmol/L Anion Gap 7 mmol/L BUN 28 H (9-20) mg/dL Creatinine 0.90 (0.66-1.25) mg/dL Est GFR (CKD-EPI)AfAm >90 (>60 ml/min/1.73 sqM) Est GFR (CKD-EPI)NonAf 82 (>60 ml/min/1.73 sqM) Glucose 119 H (74-99) mg/dL Calcium 9.0 (8.4-10.2) mg/dL Magnesium 2.0 (1.6-2.3) mg/dL Total Bilirubin 0.2 (0.2-1.3) mg/dL AST 45 (17-59) U/L ALT 65 (21-72) U/L Alkaline Phosphatase 64 (38-126) U/L Total Creatine Kinase <20 L (55-170) U/L CK-MB (CK-2) 0.4 (0.0-2.4) ng/mL CK-MB (CK-2) Rel Index Troponin I <0.012 (0.000-0.034) ng/mL NT-Pro-B Natriuret Pep pg/mL Total Protein 7.1 (6.3-8.2) g/dL Albumin 3.3 L (3.5-5.0) g/dL 12/20/17 12/20/17 Range/Units 20:40 20:40 WBC (3.8-10.6) k/uL RBC (4.30-5.90) m/uL Hgb (13.0-17.5) gm/dL Hct (39.0-53.0) % MCV (80.0-100.0) fL MCH (25.0-35.0) pg MCHC (31.0-37.0) g/dL RDW (11.5-15.5) % Plt Count (150-450) k/uL Neutrophils % % Lymphocytes % % Monocytes % % Eosinophils % % Basophils % % Neutrophils # (1.3-7.7) k/uL Lymphocytes # (1.0-4.8) k/uL Monocytes # (0-1.0) k/uL Eosinophils # (0-0.7) k/uL Basophils # (0-0.2) k/uL Hypochromasia Poikilocytosis Anisocytosis Microcytosis PT 53.5 H (9.0-12.0) sec INR 5.9 H* (<1.2) APTT 47.0 H (22.0-30.0) sec D-Dimer 3.95 H (<0.60) mg/L FEU Sodium (137-145) mmol/L Potassium (3.5-5.1) mmol/L Chloride (98-107) mmol/L Carbon Dioxide (22-30) mmol/L Anion Gap mmol/L BUN (9-20) mg/dL Creatinine (0.66-1.25) mg/dL Est GFR (CKD-EPI)AfAm (>60 ml/min/1.73 sqM) Est GFR (CKD-EPI)NonAf (>60 ml/min/1.73 sqM) Glucose (74-99) mg/dL Calcium (8.4-10.2) mg/dL Magnesium (1.6-2.3) mg/dL Total Bilirubin (0.2-1.3) mg/dL AST (17-59) U/L ALT (21-72) U/L Alkaline Phosphatase (38-126) U/L Total Creatine Kinase (55-170) U/L CK-MB (CK-2) (0.0-2.4) ng/mL CK-MB (CK-2) Rel Index Troponin I (0.000-0.034) ng/mL NT-Pro-B Natriuret Pep 307 pg/mL Total Protein (6.3-8.2) g/dL Albumin (3.5-5.0) g/dL - Radiology Data Radiology results: report reviewed (Chest x-ray shows interval worsening of pneumonia), image reviewed Disposition Clinical Impression: CHF (congestive heart failure), Pneumonia, Failure of outpatient treatment Disposition: ADMITTED IP TO THIS HOSP Condition: Fair Is patient prescribed a controlled substance at d/c from ED?: No
[2017-12-20 20:52] LABS: Anisocytosis Slight; Basophils # (A) 0.1 k/uL (0-0.2); Basophils % (A) 1 %; Eosinophils # (A) 1.1 k/uL (0-0.7); Eosinophils % (A) 11 %; HCT 31.1 % (39.0-53.0); HGB 9.8 gm/dL (13.0-17.5); Hypochromasia Moderate; Lymphocytes # (A) 1.2 k/uL (1.0-4.8); Lymphocytes % (A) 11 %; MCH 24.5 pg (25.0-35.0); MCHC 31.3 g/dL (31.0-37.0); MCV 78.1 fL (80.0-100.0); Mean Platelet Volume 6.9; Microcytosis Slight; Monocytes # (A) 0.9 k/uL (0-1.0); Monocytes % (A) 9 %; Neutrophils # (A) 6.7 k/uL (1.3-7.7); Neutrophils % (A) 65 %; Platelet Count 355 k/uL (150-450); Poikilocytosis Slight; RBC 3.98 m/uL (4.30-5.90); RDW 17.1 % (11.5-15.5); WBC 10.2 k/uL (3.8-10.6)
[2017-12-20 21:05] LABS: ALT 65 U/L (21-72); AST 45 U/L (17-59); Albumin 3.3 g/dL (3.5-5.0); Alkaline Phosphatase 64 U/L (38-126); Anion Gap 7 mmol/L; Blood Urea Nitrogen 28 mg/dL (9-20); Carbon Dioxide 34 mmol/L (22-30); Chloride 97 mmol/L (98-107); Creatine Kinase <20 U/L (55-170); Glucose 119 mg/dL (74-99); Potassium 3.9 mmol/L (3.5-5.1); Sodium 138 mmol/L (137-145); Total Bilirubin 0.2 mg/dL (0.2-1.3); Total Protein 7.1 g/dL (6.3-8.2)
[2017-12-20 21:16] LABS: Creatine Kinase MB 0.4 ng/mL (0.0-2.4); Troponin I <0.012 ng/mL (0.000-0.034)
--- NOTE | 2017-12-20 21:20 | XR ---
EXAMINATION TYPE: XR chest 1V portable DATE OF EXAM: 12/20/2017 COMPARISON: 12/15/2017 HISTORY: Short of breath TECHNIQUE: Single frontal view of the chest is obtained. FINDINGS: There are bilateral patchy pulmonary infiltrates. Heart size is normal. Thoracic aorta is atheromatous. There are chest leads. There is slight blunting of costophrenic angles. IMPRESSION: Bilateral patchy pulmonary infiltrates consistent with pneumonia that is the same or sli ghtly worse than last exam. No obvious heart failure. Small pleural effusions.
[2017-12-20 21:43] LABS: Prothrombin Time 53.5 sec (9.0-12.0)
[2017-12-20 21:45] LABS: D-Dimer 3.95 mg/L FEU (<0.60); INR 5.9 (<1.2)
[2017-12-20] MEDS ORDERED: NITROGLYCERIN SL TABS 0.4 MG TAB SUBLINGUAL PRN (21:47)
[2017-12-20] MEDS ORDERED: HYDROmorphone 1 MG/ML 1 ML SYRINGE IVP PRN (21:47)
[2017-12-20] MEDS ORDERED: HYDROmorphone 0.5 MG/0.5 ML SYRINGE IVP STA (21:47)
[2017-12-20] MEDS ORDERED: HEPARIN SODIUM,PORCINE 5,000 UNIT/ML 1 ML VIAL IV PRN (21:47)
[2017-12-20] MEDS ORDERED: HEPARIN SODIUM,PORCINE 5,000 UNIT/ML 1 ML VIAL IV ONE (21:47)
[2017-12-20] MEDS ORDERED: FUROSEMIDE 10 MG/ML 4 ML VIAL IV STA (21:50)
[2017-12-20] MEDS ORDERED: LEVOFLOXACIN 750MG-D5W PMX 750 MG in DEXTROSE/WATER 1 150ML.BAG IVPB STA (21:52)
[2017-12-20] MEDS ORDERED: PIPERACILLIN-TAZOBACTAM 3.375 GM in DEXTROSE/WATER 1 50ML.BAG IVPB STA (21:52)
[2017-12-20] MEDS ORDERED: HEPARIN SOD,PORK IN 0.45% NACL 25,000 UNIT in 0.45% NACL 1 500ML.BAG IV SCH (22:00)
[2017-12-20] MEDS ORDERED: VANCOMYCIN IV PER PHARMACY 1 EACH MISC MISCELLANE PRN (22:31)
[2017-12-20] MEDS ORDERED: VANCOMYCIN 1,500 MG in SODIUM CHLORIDE 0.9% 250 ML IVPB ONE (23:00)
--- NOTE | 2017-12-20 23:29 | P.HPIM ---
History of Present Illness H&P Date: 12/20/17 Chief Complaint: Worsening shortness of breath and cough The patient is a pleasant hearing-impaired 77-year-old male the past focal history of diastolic CHF with several recent hospitalizations for respiratory failure secondary to MRSA pneumonia, acute pulmonary embolism and CHF exacerbation who presents to the ER with his daughter with chief complaints of worsening shortness of breath and cough. History is provided by the patient' s daughter who reports that the patient has been increasingly fatigued since being discharged from the hospital 12/16/17, apparently the patient is unable to lay recumbent due to worsening of his shortness of breath, he is had a cough with clear sputum with worsening shortness of breath. She was prompted to bring him here to the ER today because the patient reported feeling worse than when he presented for his previous hospitalization. The daughter reports that the patient was also seen in PCPs office earlier today and was noted to be hypoxic on room air with saturations in the low to mid 80s. She reports the patient has been taking the full dose of Coumadin instead of the half tablet that was prescribed. The patient denied any chest pain palpitations but did mention worsening lower extremity swelling In the ER the patient had a comprehensive workup chest x-ray showed bilateral patchy infiltrates consistent with pneumonia slightly worse than his last exam, patient's INR was 5.9. Hemoglobin of 9.8. EKG shows sinus tachycardia. The patient was started on empiric IV antibiotics with Levaquin and Zosyn, given breathing treatments and started on IV Lasix and was recommended for admission Review of Systems Those systems with pertinent positive or pertinent negative responses have been documented in the HPI. ROS Other: All systems not noted in ROS Statement are negative. Past Medical History Past Medical History: Heart Failure, Myocardial Infarction ([place]) Additional Past Medical History / Comment(s): resp failure, dvt, anemia History of Any Multi-Drug Resistant Organisms: MRSA Date of last positivie culture/infection: 10/12/17 (Romario Alcala) MDRO Source:: Sputum Past Surgical History: No Surgical Hx Reported Past Anesthesia/Blood Transfusion Reactions: No Reported Reaction Past Psychological History: No Psychological Hx Reported Smoking Status: Never smoker Past Alcohol Use History: None Reported Past Drug Use History: None Reported - Past Family History Father History Unknown: Yes Medications and Allergies Home Medications Medication Instructions Recorded Confirmed Type RX: Albuterol Nebulized [Ventolin 2.5 mg INHALATION RT-Q6H 12/09/17 12/20/17 History Nebulized] RX: Ascorbic Acid [Vitamin C] 500 mg PO DAILY 12/09/17 12/20/17 History RX: Aspirin 81 mg PO DAILY 12/09/17 12/20/17 History RX: Finasteride [Proscar] 5 mg PO DAILY 12/09/17 12/20/17 History RX: Meloxicam 15 mg PO DAILY 12/09/17 12/20/17 History RX: Tamsulosin HCl [Flomax] 0.4 mg PO DAILY 12/09/17 12/20/17 History RX: Budesonide/Formoterol Fumarate 2 puff INHALATION RT-BID 12/10/17 12/20/17 History [Symbicort 160-4.5 Mcg Inhaler] RX: Ferrous Sulfate [Iron (65 MG 325 mg PO BID 12/10/17 12/20/17 History Elemental)] RX: Cyanocobalamin [Vitamin B-12] 500 mcg PO DAILY 12/11/17 12/20/17 History RX: Famotidine [Pepcid] 20 mg PO BID #60 tab 12/16/17 12/20/17 Rx RX: Furosemide [Lasix] 40 mg PO BID@0900,1600 #60 tab 12/16/17 12/20/17 Rx RX: Warfarin [Coumadin] 2.5 mg PO DAILY@1800 #30 tab 12/16/17 12/20/17 Rx RX: Amoxic-Pot Clav 875-125Mg 1 tab PO Q12HR 12/20/17 12/20/17 History [Augmentin 875-125] Allergies Allergy/AdvReac Type Severity Reaction Status Date / Time No Known Allergies Allergy Verified 12/20/17 20:45 Physical Exam Vitals: Vital Signs Temp Pulse Resp BP Pulse Ox 12/20/17 22:20 116 H 20 113/74 95 12/20/17 21:38 115 H 12/20/17 21:27 111 H 12/20/17 21:16 113 H 20 104/65 99 12/20/17 21:14 117 H 12/20/17 20:44 111 H 12/20/17 20:24 98.4 F 110 H 26 H 102/56 92 L Intake and Output 12/20/17 12/20/17 12/21/17 14:59 22:59 06:59 Other: Weight 78.018 kg Constitutional: No acute distress, conversant, pleasant Eyes: Anicteric sclerae, moist conjunctiva, no lid-lag, PERRLA ENMT: NC/AT,Oropharynx clear, no erythema, exudates Neck:Supple, FROM, no masses, or JVD, No carotid bruits; No thyromegaly Lungs: Bibasilar crackles Clear to percussion, Normal respiratory effort, no accessory muscle use Cardiovascular: Heart regular in rate and rhythm, No murmurs, gallops, or rubs no peripheral edema Abdominal: Soft Nontender, nom distended, no guarding, no rebound or rigidity, Normoactive bowel sounds No hepatomegaly, No splenomegaly, No palpable mass No abdominal wall hernia noted Skin: Normal temperature, tone, texture, turgor, No induration No subcutaneous nodules, No rash, lesions, No ulcers Extremities:No digital cyanosis No clubbing, Pedal pulses intact and symmetrical Radial pulses intact and symmetrical Normal gait and station, No calf tenderness Psychiatric: Alert and oriented to person, place and time, Appropriate affect Intact judgement Neuro: Muscles Strength 5/5 in all 4 extremities, Sensation to light touch grossly present throughout, Cranial nerves II-XII grossly intact. No focal sensory deficits Results CBC & Chem 7: 12/20/17 20:40 12/20/17 20:40 Labs: Abnormal Lab Results - Last 24 Hours (Table) 12/20/17 12/20/17 12/20/17 Range/Units 20:40 20:40 20:40 RBC 3.98 L (4.30-5.90) m/uL Hgb 9.8 L (13.0-17.5) gm/dL Hct 31.1 L (39.0-53.0) % MCV 78.1 L (80.0-100.0) fL MCH 24.5 L (25.0-35.0) pg RDW 17.1 H (11.5-15.5) % Eosinophils # 1.1 H (0-0.7) k/uL PT (9.0-12.0) sec INR (<1.2) APTT (22.0-30.0) sec D-Dimer (<0.60) mg/L FEU Chloride 97 L (98-107) mmol/L Carbon Dioxide 34 H (22-30) mmol/L BUN 28 H (9-20) mg/dL Glucose 119 H (74-99) mg/dL Total Creatine Kinase <20 L (55-170) U/L Albumin 3.3 L (3.5-5.0) g/dL 12/20/17 Range/Units 20:40 RBC (4.30-5.90) m/uL Hgb (13.0-17.5) gm/dL Hct (39.0-53.0) % MCV (80.0-100.0) fL MCH (25.0-35.0) pg RDW (11.5-15.5) % Eosinophils # (0-0.7) k/uL PT 53.5 H (9.0-12.0) sec INR 5.9 H* (<1.2) APTT 47.0 H (22.0-30.0) sec D-Dimer 3.95 H (<0.60) mg/L FEU Chloride (98-107) mmol/L Carbon Dioxide (22-30) mmol/L BUN (9-20) mg/dL Glucose (74-99) mg/dL Total Creatine Kinase (55-170) U/L Albumin (3.5-5.0) g/dL Assessment and Plan Assessment: Chronic medical conditions Diastolic congestive heart failure Rheumatoid arthritis Macrocytic anemia BPH Moderate mitral regurgitation Hearing impairment CAD with prior history of DC CODE STATUS DO NOT RESUSCITATE Medical power of compliance attorney daughter Amber (1) Acute respiratory failure with hypoxia Current Visit: Yes Status: Acute Code(s): J96.01 - ACUTE RESPIRATORY FAILURE WITH HYPOXIA SNOMED Code(s): 03772973 (2) Diastolic CHF, acute on chronic Current Visit: Yes Status: Acute Code(s): I50.33 - ACUTE ON CHRONIC DIASTOLIC (CONGESTIVE) HEART FAILURE SNOMED Code(s): 333497103 (3) Pulmonary embolism Current Visit: Yes Status: Acute Code(s): I26.99 - OTHER PULMONARY EMBOLISM WITHOUT ACUTE COR PULMONALE SNOMED Code(s): 34510859 (4) Pneumonia Current Visit: Yes Status: Acute Code(s): J18.9 - PNEUMONIA, UNSPECIFIED ORGANISM SNOMED Code(s): 565362735 (5) Warfarin-induced coagulopathy Current Visit: Yes Status: Acute Code(s): D68.32 - HEMORRHAGIC DISORD D/T EXTRINSIC CIRCULATING ANTICOAGULANTS; T45.515A - ADVERSE EFFECT OF ANTICOAGULANTS, INITIAL ENCOUNTER SNOMED Code(s): 88944818 Plan: The patient is admitted to the telemetry floor anticipated greater than 2 midnight stay with acute with her failure with hypoxia of multifactorial etiology secondary to a acute on chronic diastolic CHF exacerbation superimposed on pneumonia further superimposed on recently diagnosed pulmonary embolism. The patient is placed on supplemental oxygen and started on IV Lasix, with strict monitoring of I&O's and daily weights, low sodium heart healthy. Continue with empiric IV antibiotics witn Vancomycin, Zosyn and Levaquin. With regards to his pulmonary embolism, patient is noted to be coagulopathic due to not taking his warfarin as prescribed, currently no evidence of bleeding we'll just hold his warfarin at this time. We'll plan to consult pulmonary and cardiology for further recommendations. Continue Pepcid and SCDs for GI and DVT prophylaxis respectively. We'll continue to monitor his clinical course
[2017-12-21] MEDS ORDERED: IPRATROPIUM-ALBUTEROL 3 ML NEB INHALATION SCH
[2017-12-21] MEDS: ACETAMINOPHEN TAB 325 MG TAB PO PRN ×3 (01:31→22:40)
[2017-12-21 02:57] LABS: Creatine Kinase <20 U/L (55-170)
[2017-12-21 03:11] LABS: Creatine Kinase MB 0.3 ng/mL (0.0-2.4); Troponin I <0.012 ng/mL (0.000-0.034)
[2017-12-21] MEDS: PIPERACILLIN-TAZOBACTAM 3.375 GM in DEXTROSE/WATER 1 50ML.BAG IVPB SCH ×3 (06:03→22:39)
[2017-12-21 07:57] LABS: Mean Platelet Volume 7.5; Platelet Count 347 k/uL (150-450)
[2017-12-21 08:07] LABS: Prothrombin Time 65.4 sec (9.0-12.0)
[2017-12-21 08:14] LABS: INR 7.1 (<1.2)
[2017-12-21 08:30] LABS: Cholesterol 141 mg/dL (<200); HDL Cholesterol 31 mg/dL (40-60); LDL Cholesterol,Calculated 98 mg/dL (0-99); Triglycerides 59 mg/dL (<150)
[2017-12-21] MEDS: IPRATROPIUM-ALBUTEROL 3 ML NEB INHALATION SCH ×4 (08:30→20:22)
[2017-12-21] MEDS: SYMBICORT 160-4.5 MCG INHALER INHALATION SCH ×2 (08:30→20:22)
[2017-12-21 08:33] LABS: Creatine Kinase <20 U/L (55-170)
[2017-12-21 08:46] LABS: Creatine Kinase MB 0.4 ng/mL (0.0-2.4); Troponin I <0.012 ng/mL (0.000-0.034)
[2017-12-21] MEDS ORDERED: FUROSEMIDE 10 MG/ML 4 ML VIAL IV SCH ×2 (09:00→21:00)
[2017-12-21] MEDS: ASCORBIC ACID 500 MG TAB PO SCH (09:00)
[2017-12-21] MEDS: FAMOTIDINE 20 MG TAB PO SCH ×2 (09:00→20:16)
[2017-12-21] MEDS ORDERED: ASPIRIN 325 MG TAB PO SCH (09:00)
[2017-12-21] MEDS: FERROUS SULFATE 325 MG TAB PO SCH ×2 (09:00→20:16)
[2017-12-21] MEDS: ASPIRIN 81 MG PO SCH (09:00)
[2017-12-21] MEDS: FINASTERIDE 5 MG TAB PO SCH (09:00)
[2017-12-21] MEDS: TAMSULOSIN 0.4 MG CAP.ER.24H PO SCH (09:01)
[2017-12-21] MEDS: CYANOCOBALAMIN 500 MCG TAB PO SCH (09:01)
[2017-12-21] MEDS: METOPROLOL TARTRATE 25 MG TAB PO SCH ×2 (09:01→20:16)
--- NOTE | 2017-12-21 11:23 | P.CRDCN ---
History of Present Illness Consult date: 12/21/17 Requesting physician: Sourav Bruce Consult reason: shortness of breath Chief complaint: Shortness of breath History of present illness: This is a 77-year-old gentleman with known history of bilateral pulmonary embolisms for which the patient was just in the hospital this month, discharged home on Coumadin, history also of MRSA pneumonia, DVT, diastolic congestive heart failure, he follows with Dr. Gonzalez as his primary care doctor , he states he does not see a medical doctor nuclear medicine as an outpatient. was discharged from the hospital on December 16, return to the hospital with symptoms of progressively worsening shortness of breath. The patient even on discharge she states that he feels he was significantly short of breath. Chest x-ray on admission did not reveal any obvious heart failure, small bilateral pleural effusions are noted. EKG on admission showed a sinus tachycardia with inferior Q waves noted. Blood pressure 107/60, heart rate 105, 91% on room air. White blood cell count 10.2, hemoglobin 9.8, platelet count 355. Pro time on admission 53.5, INR 5.9, d-dimer 3.9. Sodium 138, potassium 3.9, BUN 28, creatinine 0.9. INR this morning is up to 7.1. Troponins are negative 3. BNP [id number]. At the time of my examination, patient patient is sitting up at the bedside, he is notably short of breath in conversation. Denies any chest discomfort or palpitations. Past Medical History Past Medical History: Heart Failure, Myocardial Infarction ([place]) Additional Past Medical History / Comment(s): resp failure, dvt, anemia History of Any Multi-Drug Resistant Organisms: MRSA Date of last positivie culture/infection: 10/12/17 ([facility]) MDRO Source:: Sputum Past Surgical History: No Surgical Hx Reported Past Anesthesia/Blood Transfusion Reactions: No Reported Reaction Past Psychological History: No Psychological Hx Reported Smoking Status: Never smoker Past Alcohol Use History: None Reported Past Drug Use History: None Reported - Past Family History Father History Unknown: Yes Medications and Allergies Home Medications Medication Instructions Recorded Confirmed Type Albuterol Nebulized [Ventolin 2.5 mg INHALATION RT-Q6H 12/09/17 12/20/17 History Nebulized] Ascorbic Acid [Vitamin C] 500 mg PO DAILY 12/09/17 12/20/17 History Aspirin 81 mg PO DAILY 12/09/17 12/20/17 History Finasteride [Proscar] 5 mg PO DAILY 12/09/17 12/20/17 History Meloxicam 15 mg PO DAILY 12/09/17 12/20/17 History Tamsulosin HCl [Flomax] 0.4 mg PO DAILY 12/09/17 12/20/17 History Budesonide/Formoterol Fumarate 2 puff INHALATION RT-BID 12/10/17 12/20/17 History [Symbicort 160-4.5 Mcg Inhaler] Ferrous Sulfate [Iron (65 MG 325 mg PO BID 12/10/17 12/20/17 History Elemental)] Cyanocobalamin [Vitamin B-12] 500 mcg PO DAILY 12/11/17 12/20/17 History Famotidine [Pepcid] 20 mg PO BID #60 tab 12/16/17 12/20/17 Rx Furosemide [Lasix] 40 mg PO BID@0900,1600 #60 tab 12/16/17 12/20/17 Rx Warfarin [Coumadin] 2.5 mg PO DAILY@1800 #30 tab 12/16/17 12/20/17 Rx Amoxic-Pot Clav 875-125Mg 1 tab PO Q12HR 12/20/17 12/20/17 History [Augmentin 875-125] Allergies Allergy/AdvReac Type Severity Reaction Status Date / Time No Known Allergies Allergy Verified 12/20/17 20:45 Physical Exam Vitals: Vital Signs Temp Pulse Pulse Resp BP BP BP 12/21/17 08:49 108 H 12/21/17 08:34 101 H 12/21/17 04:01 19 12/21/17 04:00 97.5 F L 105 H 19 107/67 12/21/17 00:00 98.2 F 109 H 20 116/68 12/20/17 23:22 100.2 F H 117 H 20 127/73 12/20/17 22:20 116 H 20 113/74 12/20/17 21:38 115 H 12/20/17 21:27 111 H 12/20/17 21:16 113 H 20 104/65 12/20/17 21:14 117 H 12/20/17 20:44 111 H 12/20/17 20:24 98.4 F 110 H 26 H 102/56 Pulse Ox 12/21/17 08:49 12/21/17 08:34 12/21/17 04:01 95 12/21/17 04:00 91 L 12/21/17 00:00 96 12/20/17 23:22 95 12/20/17 22:20 95 12/20/17 21:38 12/20/17 21:27 12/20/17 21:16 99 12/20/17 21:14 12/20/17 20:44 12/20/17 20:24 92 L Intake and Output 12/20/17 12/21/17 12/21/17 22:59 06:59 14:59 Intake Total 0 Output Total 300 Balance -300 0 Intake: Oral 0 Output: Urine 300 Other: Voiding Method Urinal Weight 78.8 kg 78.8 kg GENERAL: This is a 77-year-old male in no apparent distress at the time of my examination. HEENT: Head is atraumatic, normocephalic. Pupils are equal, round. Sclerae anicteric. Conjunctivae are clear. Mucous membranes of the mouth are moist. Neck is supple. There is no jugular venous distention. No carotid bruit is heard. LUNGS: Bibasilar rales noted. Diminished bilaterally. No wheezes or rhonchi. No chest wall tenderness is noted on palpation or with deep breathing. HEART: Regular rate and rhythm with systolic ejection murmur at the base, no rubs or gallops. S1 and S2 heard. ABDOMEN: Soft, nontender. Bowel sounds are heard. No organomegaly noted. EXTREMITIES: Left lower extremity 2+ pitting edema, right lower extremity no edema noted. Discoloration noted bilaterally. No calf tenderness noted. VASCULAR: Radial and dorsalis pedis pulses palpated, no evidence of clubbing. NEUROLOGIC: Patient is awake, alert and oriented x3. Results 12/21/17 07:47 12/20/17 20:40 Cardiac Enzymes 12/20/17 12/20/17 12/21/17 Range/Units 20:40 20:40 02:15 AST 45 (17-59) U/L CK-MB (CK-2) 0.4 0.3 (0.0-2.4) ng/mL Troponin I <0.012 <0.012 (0.000-0.034) ng/mL 12/21/17 Range/Units 07:47 AST (17-59) U/L CK-MB (CK-2) 0.4 (0.0-2.4) ng/mL Troponin I <0.012 (0.000-0.034) ng/mL Coagulation 12/20/17 12/21/17 Range/Units 20:40 07:47 PT 53.5 H 65.4 H (9.0-12.0) sec APTT 47.0 H (22.0-30.0) sec Lipids 12/21/17 Range/Units 07:47 Triglycerides 59 (<150) mg/dL Cholesterol 141 (<200) mg/dL HDL Cholesterol 31 L (40-60) mg/dL CBC 12/20/17 12/21/17 Range/Units 20:40 07:47 WBC 10.2 (3.8-10.6) k/uL RBC 3.98 L (4.30-5.90) m/uL Hgb 9.8 L (13.0-17.5) gm/dL Hct 31.1 L (39.0-53.0) % Plt Count 355 347 (150-450) k/uL Comprehensive Metabolic Panel 12/20/17 Range/Units 20:40 Sodium 138 (137-145) mmol/L Potassium 3.9 (3.5-5.1) mmol/L Chloride 97 L (98-107) mmol/L Carbon Dioxide 34 H (22-30) mmol/L BUN 28 H (9-20) mg/dL Creatinine 0.90 (0.66-1.25) mg/dL Glucose 119 H (74-99) mg/dL Calcium 9.0 (8.4-10.2) mg/dL AST 45 (17-59) U/L ALT 65 (21-72) U/L Alkaline Phosphatase 64 (38-126) U/L Total Protein 7.1 (6.3-8.2) g/dL Albumin 3.3 L (3.5-5.0) g/dL Current Medications Generic Name Dose Route Start Last Admin Trade Name Freq PRN Reason Stop Dose Admin Acetaminophen 650 mg 12/21/17 01:20 12/21/17 08:59 Tylenol Tab PO 650 mg Q6HR PRN Administration Fever and/ or Pain Albuterol/Ipratropium 3 ml 12/20/17 22:20 Duoneb 0.5 Mg-3 Mg/3 Ml Soln INHALATION RT-Q4H PRN Shortness Of Breath Or Wheezing Albuterol/Ipratropium 3 ml 12/21/17 08:00 12/21/17 08:30 Duoneb 0.5 Mg-3 Mg/3 Ml Soln INHALATION 3 ml RT-QID JOSHUA Administration Ascorbic Acid 500 mg 12/21/17 09:00 12/21/17 09:00 Vitamin C PO 500 mg DAILY JOSHUA Administration Aspirin 81 mg 12/21/17 09:00 12/21/17 09:00 Aspirin PO 81 mg DAILY JOSHUA Administration Budesonide/Formoterol Fumarate 2 puff 12/21/17 08:00 12/21/17 08:30 Symbicort 160-4.5 Mcg Inhaler INHALATION 2 puff RT-BID JOSHUA Administration Cyanocobalamin 500 mcg 12/21/17 09:00 12/21/17 09:01 Vitamin B-12 PO 500 mcg DAILY JOSHUA Administration Famotidine 20 mg 12/21/17 09:00 12/21/17 09:00 Pepcid PO 20 mg BID JOSHUA Administration Ferrous Sulfate 325 mg 12/21/17 09:00 12/21/17 09:00 Feosol PO 325 mg BID JOSHUA Administration Finasteride 5 mg 12/21/17 09:00 12/21/17 09:00 Proscar PO 5 mg DAILY JOSHUA Administration Furosemide 40 mg 12/21/17 09:00 12/21/17 09:01 Lasix IV 40 mg Q12HR [facility] Administration Piperacillin/Tazobactam/ 50 mls @ 12.5 mls/hr 12/21/17 06:00 12/21/17 06:03 Dextrose 3.375 gm/ IV Solution IVPB 12.5 mls/hr Q8H [facility] Administration Vancomycin HCl 1,500 mg/ 250 mls @ 125 mls/hr 12/21/17 16:00 Sodium Chloride IVPB Q16H [facility] Metoprolol Tartrate 25 mg 12/21/17 09:00 12/21/17 09:01 Lopressor PO 25 mg BID JOSHUA Administration Nitroglycerin 0.4 mg 12/20/17 21:47 Nitrostat SUBLINGUAL Q5M PRN Chest Pain Tamsulosin HCl 0.4 mg 12/21/17 09:00 12/21/17 09:01 Flomax PO 0.4 mg DAILY JOSHUA Administration Intake and Output 12/20/17 12/21/17 12/21/17 22:59 06:59 14:59 Intake Total 0 Output Total 300 Balance -300 0 Intake: Oral 0 Output: Urine 300 Other: Voiding Method Urinal Weight 78.8 kg 78.8 kg 12/21/17 07:47 12/20/17 20:40 EKG Interpretations (text) EKG shows sinus tachycardia with inferior Q waves noted. Assessment and Plan Plan: Assessment and plan #1 acute respiratory failure with evidence of hypoxia in a patient just recently diagnosed with bilateral pulmonary embolism #2 warfarin-induced coagulopathy, patient has apparently been taking a full dose of Coumadin instead of the half dose he was prescribed on discharge #3 pneumonia, MRSA #4 COPD Plan Patient's Coumadin has been placed on hold. No evidence to suggest acute heart failure on this admission. We will discontinue the IV Lasix. Place the patient back on oral diuretics. Further recommendations to follow. DNP note has been reviewed, I agree with a documented findings and plan of care. Patient was seen and examined.
--- NOTE | 2017-12-21 11:54 | P.PN ---
Subjective This is a 77-year-old male who has history of COPD, hypertension, rheumatoid arthritis,coronary artery disease. Patient was recently hospitalized at [facility] for MRSA pneumonia and CHF exacerbation. He was subsequently discharged. He was readmitted at our hospital last week and was diagnosed with bilaterally lobar level pulmonary embolism. He was quite note quite noticeably short of breath. At that time echocardiogram revealed preserved EF and diastolic dysfunction and gout significant elevation in pulmonary pressure. He was started on anticoagulation diuretics since he was showing some signs of fluid overload and also was treated with antibiotics and subsequently discharged home just a few days ago. He is now being readmitted with worsening shortness of breath, orthopnea, leg swelling, cough with minimal expectoration. He did not notice any chest pain, fever, chills, nausea vomiting abdominal pain or any other discomfort. On admission his oxygen was 91 % on room air and chest x-ray showed some bilateral pulmonary infiltrates day that are about the same as the previous chest x-ray. Of note patient had CT angiogram last week that showed except pulmonary embolism presence of emphysema and pulmonary fibrosis. His EKG here showed mild sinus tachycardia some Q waves in inferior leads and troponins were negative. ProBNP is in the range of 300. Overnight he did have difficulties breathing and some nonproductive cough. He reports a good diuresis with diuretics. He was started on vancomycin and Zosyn and levofloxacin and tolerated that quite well. Patient also reports history of anemia for which he is receiving iron and that he has been stable overnight. His INR remains elevated. No signs of bleeding REVIEW OF SYSTEMS: CONSTITUTIONAL: No fever or chills HEENT: No changes in vision or voice CARDIOVASCULAR: no chest pain or abnormal heart beats RESPIRATORY: Per HPI GASTROINTESTINAL: No abdominal pain, no nausea no vomiting no constipation or diarrhea GENITOURINARY: no any urinary urgency, frequency or burning, and there has been no blood in her urine. no flank pain. MUSCULOSKELETAL: Jacques discloses tenderness rheumatoid arthritis with contractures in the right hand. There is a peripheral edema with skin hyperpigmentation NEUROLOGICAL: , no headache. no vision changes, or fainting. No numbness or tingling. Objective - Vital Signs Vital signs: Vital Signs Temp 97.5 F L 12/21/17 04:00 Pulse 104 H 12/21/17 11:34 Resp 19 12/21/17 04:01 BP 107/67 12/21/17 04:00 Pulse Ox 95 12/21/17 04:01 Intake & Output 12/20/17 12/21/17 12/21/17 18:59 06:59 18:59 Intake Total 0 Output Total 300 Balance -300 0 Weight 78.8 kg Intake: Oral 0 Output: Urine 300 Other: Voiding Method Urinal - Exam General: No distress. Oriented x 3, normal mood and affect , although patient appears to have some difficulties in breathing, he prefers upright position HEENT: Head: Normocephalic, atraumatic, no visible or palpable masses, depressions, or scaring, conjunctiva clear, sclera non-icteric, EOM intact, PERRL Oral: Mucous membranes moist, no mucosal lesions. Pharynx: Mucosa non-inflamed, no tonsillar hypertrophy or exudate Neck: Supple, without lesions, bruits, or adenopathy, thyroid non-enlarged and non-tender, neck vein pulsations noted even upright position Heart: No cardiomegaly or thrills; regular rate and rhythm, no murmur or gallop Lungs: Diminished breath sounds bilaterally with bilateral inspiratory crackles Abdomen: Bowel sounds normal, no tenderness, organomegaly, masses, or hernia Back: Spine normal without deformity or tenderness, no CVA tenderness Extremities: 1+ pitting edema left more than right , cyanosis deformities right hand, hyperpigmented skin right lower extremity Musculoskeletal: No peripheral joint swelling, pain, erythema. No clubbing Skin: Good turgor, no rash, unusual bruising or prominent lesions Neurologic: CN 2-12 normal. No asterixis Psychiatric: Oriented X3, normal mood and affect. - Labs CBC & Chem 7: 12/21/17 07:47 12/20/17 20:40 Labs: Abnormal Lab Results - Last 24 Hours (Table) 12/20/17 12/20/17 12/20/17 Range/Units 20:40 20:40 20:40 RBC 3.98 L (4.30-5.90) m/uL Hgb 9.8 L (13.0-17.5) gm/dL Hct 31.1 L (39.0-53.0) % MCV 78.1 L (80.0-100.0) fL MCH 24.5 L (25.0-35.0) pg RDW 17.1 H (11.5-15.5) % Eosinophils # 1.1 H (0-0.7) k/uL PT (9.0-12.0) sec INR (<1.2) APTT (22.0-30.0) sec D-Dimer (<0.60) mg/L FEU Chloride 97 L (98-107) mmol/L Carbon Dioxide 34 H (22-30) mmol/L BUN 28 H (9-20) mg/dL Glucose 119 H (74-99) mg/dL Total Creatine Kinase <20 L (55-170) U/L Albumin 3.3 L (3.5-5.0) g/dL HDL Cholesterol (40-60) mg/dL 12/20/17 12/21/17 12/21/17 Range/Units 20:40 02:15 07:47 RBC (4.30-5.90) m/uL Hgb (13.0-17.5) gm/dL Hct (39.0-53.0) % MCV (80.0-100.0) fL MCH (25.0-35.0) pg RDW (11.5-15.5) % Eosinophils # (0-0.7) k/uL PT 53.5 H (9.0-12.0) sec INR 5.9 H* (<1.2) APTT 47.0 H (22.0-30.0) sec D-Dimer 3.95 H (<0.60) mg/L FEU Chloride (98-107) mmol/L Carbon Dioxide (22-30) mmol/L BUN (9-20) mg/dL Glucose (74-99) mg/dL Total Creatine Kinase <20 L <20 L (55-170) U/L Albumin (3.5-5.0) g/dL HDL Cholesterol (40-60) mg/dL 12/21/17 12/21/17 Range/Units 07:47 07:47 RBC (4.30-5.90) m/uL Hgb (13.0-17.5) gm/dL Hct (39.0-53.0) % MCV (80.0-100.0) fL MCH (25.0-35.0) pg RDW (11.5-15.5) % Eosinophils # (0-0.7) k/uL PT 65.4 H (9.0-12.0) sec INR 7.1 H* (<1.2) APTT (22.0-30.0) sec D-Dimer (<0.60) mg/L FEU Chloride (98-107) mmol/L Carbon Dioxide (22-30) mmol/L BUN (9-20) mg/dL Glucose (74-99) mg/dL Total Creatine Kinase (55-170) U/L Albumin (3.5-5.0) g/dL HDL Cholesterol 31 L (40-60) mg/dL Assessment and Plan Plan: 1. Dyspnea This might be multifactorial from recent pulmonary embolism, component of diastolic dysfunction, underlying COPD and recently noticed pulmonary fibrosis on the CAT scan which could be related to his rheumatological disease Pneumonia cannot be ruled out at this point Interestingly his eosinophils are elevated hence certainly mimics of pneumonia noninfectious in nature cannot be ruled out Pulmonary service has been consulted to assist with diagnosis and management We will obtain pro-calcitonin and nasal MRSA swab Blood cultures pending Home O2 evaluation prior discharge 2. Recent pulmonary embolism with supratherapeutic INR Coumadin has been on hold Per patient he was not able to afford DOACs He clearly has some errors in taking Coumadin We will work towards providing more support after discharge 3. Anemia, microcytic He is on iron supplementation a hemoglobin has been stable Continue to monitor hemoglobin has been stable here We will need to obtain more information and from old records regarding this anemia and workup 4. Severe debility and poor functional status and deconditioning due to recent hospitalizations and poor cardiopulmonary reserve Once respiratory status more stable we'll obtain physical occupational evaluation and patient might need to be discharged to subacute rehabilitation Expected discharge in 3 days Time with Patient: Greater than 30
--- NOTE | 2017-12-21 13:32 | P.CNPUL ---
History of Present Illness Consult date: 12/21/17 Requesting physician: Sourav Bruce Reason for consult: dyspnea Chief complaint: Shortness of breath History of present illness: This is a pleasant 77-year-old gentleman who follows with Dr. Gonzalez as his primary care physician. He has a history of myocardial infarction, diastolic congestive heart failure, DVT, recent admission to [facility] for MRSA pneumonia with an extended stay subsequent transfer to inpatient rehabilitation and then discharged home. He had been readmitted here 12/10/2017 for congestive heart failure and left lower lobe pneumonia. His echocardiogram had revealed preserved left ventricular systolic function with ejection fraction 50- 55%. There is mild aortic sclerosis, moderate mitral regurgitation. He was also found to have bilateral pulmonary embolism and has been maintained on warfarin in the outpatient setting. He was subsequently discharged on 2017. He presented here to the emergency room again yesterday with continued complaints of shortness of breath. His INR was supratherapeutic initially 5.9. Today 7.1. He is seen in consultation on the selective care unit. He is awake and alert in no acute distress. He is maintaining good O2 saturations in the mid 90s on 2 L/m per nasal cannula. He has been afebrile. Remaining hemodynamically stable. Chest x-rays reveals bilateral patchy infiltrates but still the same as compared to previous admission. No obvious heart failure. Small pleural effusions. White count 10.2. Hemoglobin 9.8. Creatinine 0.90. Troponins negative 3. ProBNP 307. Review of Systems Constitutional: Reports poor appetite, Reports weakness Eyes: denies blurred vision, denies decreased vision Ears: bilateral: decreased hearing Ears, nose, mouth and throat: Denies headache, Denies sore throat Cardiovascular: Reports decreased exercise tolerance, Reports dyspnea on exertion, Reports orthopnea, Reports shortness of breath Respiratory: Reports cough, Reports dyspnea Gastrointestinal: Reports loss of appetite Genitourinary: Reports as per HPI Musculoskeletal: Reports low back pain Musculoskeletal: left: foot pain Integumentary: Reports color changes Neurological: Reports weakness Psychiatric: Reports difficulty concentrating Endocrine: Reports fatigue Hematologic/Lymphatic: Reports as per HPI Allergic/Immunologic: Reports as per HPI Past Medical History Past Medical History: Heart Failure, Myocardial Infarction ([place]) Additional Past Medical History / Comment(s): resp failure, dvt, anemia History of Any Multi-Drug Resistant Organisms: MRSA Date of last positivie culture/infection: 10/12/17 (Romario Alcala) MDRO Source:: Sputum Past Surgical History: No Surgical Hx Reported Past Anesthesia/Blood Transfusion Reactions: No Reported Reaction Past Psychological History: No Psychological Hx Reported Smoking Status: Never smoker Past Alcohol Use History: None Reported Past Drug Use History: None Reported - Past Family History Father History Unknown: Yes Medications and Allergies Home Medications Medication Instructions Recorded Confirmed Type Albuterol Nebulized [Ventolin 2.5 mg INHALATION RT-Q6H 12/09/17 12/20/17 History Nebulized] Ascorbic Acid [Vitamin C] 500 mg PO DAILY 12/09/17 12/20/17 History Aspirin 81 mg PO DAILY 12/09/17 12/20/17 History Finasteride [Proscar] 5 mg PO DAILY 12/09/17 12/20/17 History Meloxicam 15 mg PO DAILY 12/09/17 12/20/17 History Tamsulosin HCl [Flomax] 0.4 mg PO DAILY 12/09/17 12/20/17 History Budesonide/Formoterol Fumarate 2 puff INHALATION RT-BID 12/10/17 12/20/17 History [Symbicort 160-4.5 Mcg Inhaler] Ferrous Sulfate [Iron (65 MG 325 mg PO BID 12/10/17 12/20/17 History Elemental)] Cyanocobalamin [Vitamin B-12] 500 mcg PO DAILY 12/11/17 12/20/17 History Famotidine [Pepcid] 20 mg PO BID #60 tab 12/16/17 12/20/17 Rx Furosemide [Lasix] 40 mg PO BID@0900,1600 #60 tab 12/16/17 12/20/17 Rx Warfarin [Coumadin] 2.5 mg PO DAILY@1800 #30 tab 12/16/17 12/20/17 Rx Amoxic-Pot Clav 875-125Mg 1 tab PO Q12HR 12/20/17 12/20/17 History [Augmentin 875-125] Allergies Allergy/AdvReac Type Severity Reaction Status Date / Time No Known Allergies Allergy Verified 12/20/17 20:45 Physical Exam Vitals: Vital Signs Temp Pulse Pulse Resp BP BP BP 12/21/17 12:00 85 90/54 12/21/17 11:45 101 H 12/21/17 11:34 104 H 12/21/17 08:49 108 H 12/21/17 08:34 101 H 12/21/17 08:00 96.8 F L 107 H 106/55 12/21/17 04:01 19 12/21/17 04:00 97.5 F L 105 H 19 107/67 12/21/17 00:00 98.2 F 109 H 20 116/68 12/20/17 23:22 100.2 F H 117 H 20 127/73 12/20/17 22:20 116 H 20 113/74 12/20/17 21:38 115 H 12/20/17 21:27 111 H 12/20/17 21:16 113 H 20 104/65 12/20/17 21:14 117 H 12/20/17 20:44 111 H 12/20/17 20:24 98.4 F 110 H 26 H 102/56 Pulse Ox 12/21/17 12:00 95 12/21/17 11:45 12/21/17 11:34 12/21/17 08:49 12/21/17 08:34 12/21/17 08:00 96 12/21/17 04:01 95 12/21/17 04:00 91 L 12/21/17 00:00 96 12/20/17 23:22 95 12/20/17 22:20 95 12/20/17 21:38 12/20/17 21:27 12/20/17 21:16 99 12/20/17 21:14 12/20/17 20:44 12/20/17 20:24 92 L Intake and Output 12/20/17 12/21/17 12/21/17 22:59 06:59 14:59 Intake Total 50 Output Total 300 Balance -300 50 Intake: Intake, IV Titration 50 Amount Piperacillin-Tazobactam 3 50 .375 gm In Dextrose/Water 1 50ml.bag @ 12.5 mls/hr IVPB Q8H [facility] Rx#: [id number] Oral 0 Output: Urine 300 Other: Voiding Method Urinal Urinal Weight 78.8 kg 78.8 kg - Constitutional General appearance: average body habitus, disheveled, no acute distress - EENT Eyes: EOMI, PERRLA ENT: hard of hearing Ears: bilateral: normal - Neck Neck: normal ROM Carotids: bilateral: upstroke normal Thyroid: bilateral: normal size - Respiratory Respiratory: left: rhonchi, bilateral: rales - Cardiovascular Rhythm: regular Heart sounds: normal: S1, S2 - Gastrointestinal General gastrointestinal: normal bowel sounds - Integumentary Integumentary: normal turgor - Neurologic Neurologic: CNII-XII intact - Musculoskeletal Musculoskeletal: generalized weakness - Psychiatric Psychiatric: A&O x's 3, appropriate affect, intact judgment & insight Results - Laboratory Findings CBC and BMP: 12/21/17 07:47 12/20/17 20:40 PT/INR, D-dimer PT 65.4 sec (9.0-12.0) H 12/21/17 07:47 INR 7.1 (<1.2) H* 12/21/17 07:47 D-Dimer 3.95 mg/L FEU (<0.60) H 12/20/17 20:40 Abnormal lab findings: Abnormal Labs 12/20/17 12/20/17 12/20/17 20:40 20:40 20:40 RBC 3.98 L Hgb 9.8 L Hct 31.1 L MCV 78.1 L MCH 24.5 L RDW 17.1 H Eosinophils # 1.1 H PT INR APTT D-Dimer Chloride 97 L Carbon Dioxide 34 H BUN 28 H Glucose 119 H Total Creatine Kinase <20 L Albumin 3.3 L HDL Cholesterol 12/20/17 12/21/17 12/21/17 20:40 02:15 07:47 RBC Hgb Hct MCV MCH RDW Eosinophils # PT 53.5 H INR 5.9 H* APTT 47.0 H D-Dimer 3.95 H Chloride Carbon Dioxide BUN Glucose Total Creatine Kinase <20 L <20 L Albumin HDL Cholesterol 12/21/17 12/21/17 07:47 07:47 RBC Hgb Hct MCV MCH RDW Eosinophils # PT 65.4 H INR 7.1 H* APTT D-Dimer Chloride Carbon Dioxide BUN Glucose Total Creatine Kinase Albumin HDL Cholesterol 31 L - Diagnostic Findings Chest x-ray: image reviewed Assessment and Plan Assessment: Impression: #1 Dyspnea, multifactorial secondary to acute exacerbation of diastolic congestive heart failure, left lower lobe infiltrate with recent history of MRSA pneumonia, anemia. Suspect possible healthcare acquired pneumonia #2 Recent admission to the hospital and found to have bilateral pulmonary emboli , anticoagulated with warfarin. Supra therapeutic current INR 7.1. #3 Chronic anemia current hemoglobin 9.8. #4 Left lower extremity edema, negative for DVT on previous admission. #5 Recent prolonged hospitalization at [facility] for acute respiratory failure secondary to MRSA pneumonia. #6 History of myocardial infarction. #7 History of diastolic congestive heart failure. Plan: The patient was seen and evaluated by Dr. Cordero. Chest x-ray, labs were reviewed. The patient has been initiated on vancomycin and Zosyn, bronchodilators and is being in diuresed with IV Lasix. Continue to hold the warfarin. Monitor INRs. We will repeat a chest x-ray in the a.m. We'll increase his activity as tolerated. We'll continue to follow. I, the cosigning physician, performed a history & physical examination of the patient. Lungs sounds with crackles in the bilateral posterior bases. Maintaining good O2 saturations in the 90s on room air. I discussed the assessment and plan of care with my nurse practitioner, Stephania Rose. I attest to the above consultation as dictated by her. Time with Patient: Greater than 30
[2017-12-21] MEDS ORDERED: FUROSEMIDE 40 MG TAB PO SCH (16:00)
[2017-12-21] MEDS: SPIRONOLACTONE 25 MG TAB PO SCH (17:07)
[2017-12-21] MEDS: VANCOMYCIN 1,500 MG in SODIUM CHLORIDE 0.9% 250 ML IVPB SCH (20:15)
[2017-12-21] MEDS ORDERED: LEVOFLOXACIN 750MG-D5W PMX 750 MG in DEXTROSE/WATER 1 150ML.BAG IVPB SCH (22:00)
[2017-12-22] MEDS: IPRATROPIUM-ALBUTEROL 3 ML NEB INHALATION PRN (05:04)
[2017-12-22] MEDS: PIPERACILLIN-TAZOBACTAM 3.375 GM in DEXTROSE/WATER 1 50ML.BAG IVPB SCH (05:09)
[2017-12-22 06:24] LABS: Mean Platelet Volume 6.6; Platelet Count 343 k/uL (150-450)
[2017-12-22 06:36] LABS: INR 7.3 (<1.2)
[2017-12-22 06:45] LABS: Calcium 8.7 mg/dL (8.4-10.2); Magnesium 2.1 mg/dL (1.6-2.3); Potassium 3.9 mmol/L (3.5-5.1)
[2017-12-22] MEDS: IPRATROPIUM-ALBUTEROL 3 ML NEB INHALATION SCH ×4 (07:34→20:34)
[2017-12-22] MEDS: ASCORBIC ACID 500 MG TAB PO SCH (08:08)
[2017-12-22] MEDS: CYANOCOBALAMIN 500 MCG TAB PO SCH (08:08)
[2017-12-22] MEDS: FAMOTIDINE 20 MG TAB PO SCH ×2 (08:09→20:31)
[2017-12-22] MEDS: TAMSULOSIN 0.4 MG CAP.ER.24H PO SCH (08:09)
[2017-12-22] MEDS: FUROSEMIDE 40 MG TAB PO SCH ×2 (08:09→17:37)
[2017-12-22] MEDS: FERROUS SULFATE 325 MG TAB PO SCH ×2 (08:09→20:31)
[2017-12-22] MEDS: ASPIRIN 81 MG PO SCH (08:09)
[2017-12-22] MEDS: METOPROLOL TARTRATE 25 MG TAB PO SCH (08:09)
[2017-12-22] MEDS: SPIRONOLACTONE 25 MG TAB PO SCH (08:09)
[2017-12-22] MEDS: FINASTERIDE 5 MG TAB PO SCH (08:09)
[2017-12-22] MEDS: VANCOMYCIN 1,500 MG in SODIUM CHLORIDE 0.9% 250 ML IVPB SCH (09:21)
--- NOTE | 2017-12-22 10:08 | P.PN ---
Subjective Overall uneventful night. Patient states that he is still short of breath but somewhat better. He denies any chest pain headache nausea vomiting abdominal pain. No fever or chills. He's been coughing and bringing some yellow phlegm. REVIEW OF SYSTEMS: CONSTITUTIONAL: No fever or chills HEENT: No changes in vision or voice CARDIOVASCULAR: no chest pain or abnormal heart beats, or any swelling in ankles or feet. RESPIRATORY: Per HPI GASTROINTESTINAL: No abdominal pain, no nausea no vomiting no constipation or diarrhea GENITOURINARY: no any urinary urgency, frequency or burning, and there has been no blood in her urine. no flank pain. NEUROLOGICAL: , no headache. no vision changes, or fainting. No numbness or tingling. Objective - Vital Signs Vital signs: Vital Signs Temp 98.1 F 12/22/17 07:59 Pulse 99 12/22/17 07:59 Resp 18 12/22/17 07:59 BP 89/51 12/22/17 07:59 Pulse Ox 94 L 12/22/17 07:59 Intake & Output 12/21/17 12/22/17 12/22/17 18:59 06:59 18:59 Intake Total 286 240 Output Total 950 Balance 286 -950 240 Weight 79.7 kg Intake: Intake, IV Titration 50 Amount Piperacillin-Tazobactam 3 50 .375 gm In Dextrose/Water 1 50ml.bag @ 12.5 mls/hr IVPB Q8H [facility]PLACED [facility] Rx#: [id number] Oral 236 240 Output: Urine 950 Other: Voiding Method Urinal Urinal Urinal # Voids 1 - Exam General: No distress. Oriented x 3, normal mood and affect , nonlabored breathing appears not to be in distress HEENT: Head: , no visible or palpable masses, depressions, or scaring, conjunctiva clear, sclera non-icteric, EOM intact, PERRL Oral: Mucous membranes moist, no mucosal lesions. Pharynx: Mucosa non-inflamed, no tonsillar hypertrophy or exudate Neck: Supple, without lesions, bruits, or adenopathy, thyroid non-enlarged and non-tender, neck vein pulsations noted even upright position Heart: No cardiomegaly or thrills; regular rate and rhythm, no murmur or gallop Lungs: Diminished breath sounds bilaterally with bilateral inspiratory crackles Abdomen: Bowel sounds normal, no tenderness, organomegaly, masses, or hernia Back: Spine normal without deformity or tenderness, no CVA tenderness Extremities: 2+ pitting edema left more than right , cyanosis deformities right hand, hyperpigmented skin right lower extremity Musculoskeletal: No peripheral joint swelling, pain, erythema. No clubbing Neurologic: CN 2-12 normal. No asterixis Psychiatric: Oriented X3, normal mood and affect. - Labs CBC & Chem 7: 12/22/17 05:47 12/22/17 05:47 Labs: Abnormal Lab Results - Last 24 Hours (Table) 12/21/17 12/22/17 12/22/17 Range/Units 07:47 05:47 05:47 PT 67.0 H (9.0-12.0) sec INR 7.3 H* (<1.2) Carbon Dioxide 33 H (22-30) mmol/L BUN 28 H (9-20) mg/dL Glucose 129 H (74-99) mg/dL Procalcitonin 0.18 H (0.02-0.09) ng/mL Microbiology - Last 24 Hours (Table) 12/21/17 17:15 Nasal Culture - Preliminary Nasal Swab 12/20/17 20:40 Blood Culture - Preliminary Blood No Growth after 24 hours Assessment and Plan Plan: 1. Dyspnea This might be multifactorial from recent pulmonary embolism, component of diastolic dysfunction, underlying COPD and recently noticed pulmonary fibrosis on the CAT scan which could be related to his rheumatological disease Pro-calcitonin elevated Bilateral infiltrates of the chest x-ray that they are about the stable from before Blood cultures are no growth to date Continue antibiotics Obtain sputum cultures Continue diuresis Home O2 evaluation prior discharge Increase activity as tolerated 2. Recent pulmonary embolism with supratherapeutic INR Coumadin has been on hold 3. Anemia, microcytic Monitor hemoglobin obvious signs of bleeding right now Check iron studies 4. Hypertension His blood pressure has been soft Hold metoprolol, Flomax and spironolactone 4. Severe debility and poor functional status and deconditioning due to recent hospitalizations and poor cardiopulmonary reserve Once respiratory status more stable we'll obtain physical occupational evaluation and patient might need to be discharged to subacute rehabilitation Expected discharge in 3 days
--- NOTE | 2017-12-22 10:57 | XR ---
EXAMINATION TYPE: XR chest 1V DATE OF EXAM: 12/22/2017 CLINICAL HISTORY: Difficulty breathing and hypoxia progress study. Increased cough and congestion. TECHNIQUE: Single AP portable upright view of the chest is obtained. COMPARISON: Chest x-ray from 2 days earlier and older studies. Recent CTA chest December 10, 2017. FINDINGS: There is persistent left basilar opacity. There are persistent small bilateral pleural eff usions. There is persistent cardiomegaly with atherosclerotic thoracic aorta. Underlying scoliosis is redemonstrated. Background chronic parenchymal change is noted. IMPRESSION: Overall stable findings, chronic parenchymal change and cardiomegaly with small bilater al pleural effusions and persistent left basilar atelectasis and/or infiltrate. No significant change from most recent chest x-ray.
--- NOTE | 2017-12-22 11:18 | P.PN ---
Subjective Progress Note Date: 12/22/17 Principal diagnosis: Acute exacerbation of diastolic congestive heart failure, left lower lobe infiltrate with recent history of MRSA pneumonia, anemia. This is a pleasant 77-year-old gentleman who follows with Dr. Gonzalez as his primary care physician. He has a history of myocardial infarction, diastolic congestive heart failure, DVT, recent admission to [facility] for MRSA pneumonia with an extended stay subsequent transfer to inpatient rehabilitation and then discharged home. He had been readmitted here 12/10/2017 for congestive heart failure and left lower lobe pneumonia. His echocardiogram had revealed preserved left ventricular systolic function with ejection fraction 50- 55%. There is mild aortic sclerosis, moderate mitral regurgitation. He was also found to have bilateral pulmonary embolism and has been maintained on warfarin in the outpatient setting. He was subsequently discharged on 2017. He presented here to the emergency room again yesterday with continued complaints of shortness of breath. His INR was supratherapeutic initially 5.9. Today 7.1. He is seen in consultation on the selective care unit. He is awake and alert in no acute distress. He is maintaining good O2 saturations in the mid 90s on 2 L/m per nasal cannula. He has been afebrile. Remaining hemodynamically stable. Chest x-rays reveals bilateral patchy infiltrates but still the same as compared to previous admission. No obvious heart failure. Small pleural effusions. White count 10.2. Hemoglobin 9.8. Creatinine 0.90. Troponins negative 3. ProBNP 307. The patient is seen today 12/22/2017 in follow-up on the selective care unit. He remains awake and alert in no acute distress. He is breathing better today as compared to yesterday. Chest x-ray about the same. Maintaining good O2 saturations in the 90s on 2 L/m per nasal cannula. He is continued on vancomycin and Zosyn which could be D escalated. Blood cultures reveal no growth. INR remains high at 7.3. Creatinine 1.25. Objective - Vital Signs Vital signs: Vital Signs Temp 98.1 F 12/22/17 07:59 Pulse 99 12/22/17 07:59 Resp 18 12/22/17 07:59 BP 89/51 12/22/17 07:59 Pulse Ox 94 L 12/22/17 07:59 Intake & Output 12/21/17 12/22/17 12/22/17 18:59 06:59 18:59 Intake Total 286 240 Output Total 950 Balance 286 -950 240 Weight 79.7 kg Intake: Intake, IV Titration 50 Amount Piperacillin-Tazobactam 3 50 .375 gm In Dextrose/Water 1 50ml.bag @ 12.5 mls/hr IVPB Q8H [facility] Rx#: [id number] Oral 236 240 Output: Urine 950 Other: Voiding Method Urinal Urinal Urinal # Voids 1 - Exam - Constitutional General appearance: average body habitus, disheveled, no acute distress - EENT Eyes: EOMI, PERRLA ENT: hard of hearing Ears: bilateral: normal - Neck Neck: normal ROM Carotids: bilateral: upstroke normal Thyroid: bilateral: normal size - Respiratory Respiratory: left: rhonchi, bilateral: rales - Cardiovascular Rhythm: regular Heart sounds: normal: S1, S2 - Gastrointestinal General gastrointestinal: normal bowel sounds - Integumentary Integumentary: normal turgor - Neurologic Neurologic: CNII-XII intact - Musculoskeletal Musculoskeletal: generalized weakness - Psychiatric Psychiatric: A&O x's 3, appropriate affect, intact judgment & insight - Labs CBC & Chem 7: 12/22/17 05:47 12/22/17 05:47 Labs: Abnormal Lab Results - Last 24 Hours (Table) 12/21/17 12/22/17 12/22/17 Range/Units 07:47 05:47 05:47 PT 67.0 H (9.0-12.0) sec INR 7.3 H* (<1.2) Carbon Dioxide 33 H (22-30) mmol/L BUN 28 H (9-20) mg/dL Glucose 129 H (74-99) mg/dL Procalcitonin 0.18 H (0.02-0.09) ng/mL Microbiology - Last 24 Hours (Table) 12/21/17 17:15 Nasal Culture - Preliminary Nasal Swab 12/20/17 20:40 Blood Culture - Preliminary Blood No Growth after 24 hours Assessment and Plan Assessment: Impression: #1 Dyspnea, multifactorial secondary to acute exacerbation of diastolic congestive heart failure, left lower lobe infiltrate with recent history of MRSA pneumonia, anemia. Suspect possible healthcare acquired pneumonia #2 Recent admission to the hospital and found to have bilateral pulmonary emboli , anticoagulated with warfarin. Supra therapeutic current INR 7.3. #3 Chronic anemia current hemoglobin 9.8. #4 Left lower extremity edema, negative for DVT on previous admission. #5 Recent prolonged hospitalization at [facility] for acute respiratory failure secondary to MRSA pneumonia. #6 History of myocardial infarction. #7 History of diastolic congestive heart failure. Plan: The patient was seen and evaluated by Dr. Cordero. Chest x-ray and labs reviewed. We will discontinue the vancomycin. Discontinue Zosyn. Initiate Augmentin, continue bronchodilators. Continue to hold the warfarin. Monitor INRs. We will repeat a chest x-ray in the a.m. We'll increase his activity as tolerated. We'll continue to follow. I, the cosigning physician, performed a history & physical examination of the patient. Lungs sounds with crackles in the bilateral posterior bases. Maintaining good O2 saturations in the 90s on 2 L/m per nasal cannula. I discussed the assessment and plan of care with my nurse practitioner, Stephania Rose. I attest to the above consultation as dictated by her.
[2017-12-22] MEDS: SYMBICORT 160-4.5 MCG INHALER INHALATION SCH ×2 (12:04→20:34)
--- NOTE | 2017-12-22 14:35 | P.PN ---
Subjective Progress Note Date: 12/22/17 This is a 77-year-old gentleman with known history of bilateral pulmonary embolisms for which the patient was just in the hospital this month, discharged home on Coumadin, history also of MRSA pneumonia, DVT, diastolic congestive heart failure, he follows with Dr. Gonzalez as his primary care doctor , he states he does not see a technical service representative as an outpatient. was discharged from the hospital on December 16, return to the hospital with symptoms of progressively worsening shortness of breath. The patient even on discharge she states that he feels he was significantly short of breath. Chest x-ray on admission did not reveal any obvious heart failure, small bilateral pleural effusions are noted. EKG on admission showed a sinus tachycardia with inferior Q waves noted. Blood pressure 107/60, heart rate 105, 91% on room air. White blood cell count 10.2, hemoglobin 9.8, platelet count 355. Pro time on admission 53.5, INR 5.9, d-dimer 3.9. Sodium 138, potassium 3.9, BUN 28, creatinine 0.9. INR this morning is up to 7.1. Troponins are negative 3. BNP [id number]. At the time of my examination, patient patient is sitting up at the bedside, he is notably short of breath in conversation. Denies any chest discomfort or palpitations. 12/22/2017 Patient seen and examined this morning, alert and oriented, does state that his breathing is improved since yesterday. Chest x-ray does not show any major changes. He's maintaining good oxygenation and hemodynamically he is stable. INR today 7.3, creatinine 1.2. Objective - Vital Signs Vital signs: Vital Signs Temp 97.7 F 12/22/17 11:50 Pulse 92 12/22/17 12:14 Resp 18 12/22/17 11:50 BP 98/55 12/22/17 11:50 Pulse Ox 94 L 12/22/17 11:50 Intake & Output 12/21/17 12/22/17 12/22/17 18:59 06:59 18:59 Intake Total 286 480 Output Total 950 700 Balance 286 950 -220 Weight 79.7 kg 79.7 kg Intake: Intake, IV Titration 50 Amount Piperacillin-Tazobactam 3 50 .375 gm In Dextrose/Water 1 50ml.bag @ 12.5 mls/hr IVPB Q8H [facility] Rx#: [id number] Oral 236 480 Output: Urine 950 700 Other: Voiding Method Urinal Urinal Urinal # Voids 1 - Exam GENERAL: This is a 77-year-old male in no apparent distress at the time of my examination. HEENT: Head is atraumatic, normocephalic. Pupils are equal, round. Sclerae anicteric. Conjunctivae are clear. Mucous membranes of the mouth are moist. Neck is supple. There is no jugular venous distention. No carotid bruit is heard. LUNGS: Bibasilar rales noted. Diminished bilaterally. No wheezes or rhonchi. No chest wall tenderness is noted on palpation or with deep breathing. HEART: Regular rate and rhythm with systolic ejection murmur at the base, no rubs or gallops. S1 and S2 heard. ABDOMEN: Soft, nontender. Bowel sounds are heard. No organomegaly noted. EXTREMITIES: Left lower extremity 2+ pitting edema, right lower extremity no edema noted. Discoloration noted bilaterally. No calf tenderness noted. VASCULAR: Radial and dorsalis pedis pulses palpated, no evidence of clubbing. NEUROLOGIC: Patient is awake, alert and oriented x3. - Labs CBC & Chem 7: 12/22/17 05:47 12/22/17 05:47 Labs: Abnormal Lab Results - Last 24 Hours (Table) 12/21/17 12/22/17 12/22/17 Range/Units 07:47 05:47 05:47 PT 67.0 H (9.0-12.0) sec INR 7.3 H* (<1.2) Carbon Dioxide 33 H (22-30) mmol/L BUN 28 H (9-20) mg/dL Glucose 129 H (74-99) mg/dL Procalcitonin 0.18 H (0.02-0.09) ng/mL Microbiology - Last 24 Hours (Table) 12/21/17 17:15 Nasal Culture - Preliminary Nasal Swab Presumptive Staph aureus 12/20/17 20:40 Blood Culture - Preliminary Blood No Growth after 24 hours Assessment and Plan Plan: Assessment and plan #1 acute respiratory failure with evidence of hypoxia in a patient just recently diagnosed with bilateral pulmonary embolism #2 warfarin-induced coagulopathy, patient has apparently been taking a full dose of Coumadin instead of the half dose he was prescribed on discharge #3 pneumonia, MRSA #4 COPD Plan We'll continue to hold the patient's Coumadin. Daily PT/INRs. DNP note has been reviewed, I agree with a documented findings and plan of care. Patient was seen and examined.
[2017-12-22] MEDS ORDERED: VANCOMYCIN 1,500 MG in SODIUM CHLORIDE 0.9% 250 ML IVPB SCH (19:00)
[2017-12-22] MEDS: AMOXIC-POT CLAV 875-125MG 1 EACH TAB PO SCH (20:33)
[2017-12-23 06:35] LABS: Anisocytosis Slight; HCT 28.8 % (39.0-53.0); HGB 8.9 gm/dL (13.0-17.5); Hypochromasia Marked; MCH 24.5 pg (25.0-35.0); MCV 78.9 fL (80.0-100.0); Mean Platelet Volume 6.2; Microcytosis Slight; Platelet Count 346 k/uL (150-450); RBC 3.65 m/uL (4.30-5.90); RDW 17.1 % (11.5-15.5); Reticulocyte % 3.3 % (0.5-2.0); WBC 8.9 k/uL (3.8-10.6)
[2017-12-23 06:39] LABS: Prothrombin Time 58.9 sec (9.0-12.0)
[2017-12-23 06:42] LABS: Magnesium 2.2 mg/dL (1.6-2.3); Potassium 4.4 mmol/L (3.5-5.1)
[2017-12-23] MEDS: ACETAMINOPHEN TAB 325 MG TAB PO PRN ×3 (06:45→23:29)
[2017-12-23 06:57] LABS: INR 6.4 (<1.2)
[2017-12-23] MEDS: ASCORBIC ACID 500 MG TAB PO SCH (08:08)
[2017-12-23] MEDS: AMOXIC-POT CLAV 875-125MG 1 EACH TAB PO SCH ×2 (08:09→20:12)
[2017-12-23] MEDS: FERROUS SULFATE 325 MG TAB PO SCH ×2 (08:09→20:12)
[2017-12-23] MEDS: FUROSEMIDE 40 MG TAB PO SCH ×2 (08:09→16:04)
[2017-12-23] MEDS: FINASTERIDE 5 MG TAB PO SCH (08:09)
[2017-12-23] MEDS: ASPIRIN 81 MG PO SCH (08:09)
[2017-12-23] MEDS: FAMOTIDINE 20 MG TAB PO SCH ×2 (08:09→20:12)
[2017-12-23] MEDS: CYANOCOBALAMIN 500 MCG TAB PO SCH (08:09)
[2017-12-23] MEDS: IPRATROPIUM-ALBUTEROL 3 ML NEB INHALATION SCH ×4 (08:32→20:42)
[2017-12-23] MEDS: SYMBICORT 160-4.5 MCG INHALER INHALATION SCH ×2 (08:32→20:50)
[2017-12-23 11:24] LABS: Iron Saturation 11.91 (15.00-50.00)
--- NOTE | 2017-12-23 11:50 | P.PN ---
Subjective Progress Note Date: 12/23/17 Principal diagnosis: Acute exacerbation of diastolic congestive heart failure, left lower lobe infiltrate with recent history of MRSA pneumonia, anemia. This is a pleasant 77-year-old gentleman who follows with Dr. Gonzalez as his primary care physician. He has a history of myocardial infarction, diastolic congestive heart failure, DVT, recent admission to [facility] for MRSA pneumonia with an extended stay subsequent transfer to inpatient rehabilitation and then discharged home. He had been readmitted here 12/10/2017 for congestive heart failure and left lower lobe pneumonia. His echocardiogram had revealed preserved left ventricular systolic function with ejection fraction 50- 55%. There is mild aortic sclerosis, moderate mitral regurgitation. He was also found to have bilateral pulmonary embolism and has been maintained on warfarin in the outpatient setting. He was subsequently discharged on 2017. He presented here to the emergency room again yesterday with continued complaints of shortness of breath. His INR was supratherapeutic initially 5.9. Today 7.1. He is seen in consultation on the selective care unit. He is awake and alert in no acute distress. He is maintaining good O2 saturations in the mid 90s on 2 L/m per nasal cannula. He has been afebrile. Remaining hemodynamically stable. Chest x-rays reveals bilateral patchy infiltrates but still the same as compared to previous admission. No obvious heart failure. Small pleural effusions. White count 10.2. Hemoglobin 9.8. Creatinine 0.90. Troponins negative 3. ProBNP 307. The patient is seen today 12/22/2017 in follow-up on the selective care unit. He remains awake and alert in no acute distress. He is breathing better today as compared to yesterday. Chest x-ray about the same. Maintaining good O2 saturations in the 90s on 2 L/m per nasal cannula. He is continued on vancomycin and Zosyn which could be D escalated. Blood cultures reveal no growth. INR remains high at 7.3. Creatinine 1.25. The patient is seen again today 12/23/2017 in follow-up on the selective care unit. He is currently sitting up in a chair at the bedside. He denies any worsening shortness of breath, cough or congestion. He is maintaining good O2 saturations in the upper 90s on 2 L/m per nasal cannula. He is afebrile. Hemodynamically stable. White count 8.9. Hemoglobin 8.9. INR 6.4. Creatinine 1.10. He is currently on bronchodilators and Augmentin. Objective - Vital Signs Vital signs: Vital Signs Temp 97.7 F 12/23/17 08:10 Pulse 92 12/23/17 08:42 Resp 18 12/23/17 08:10 BP 103/62 12/23/17 08:10 Pulse Ox 98 12/23/17 08:10 Intake & Output 12/22/17 12/23/17 12/23/17 18:59 06:59 18:59 Intake Total 480 Output Total 700 475 Balance -220 -475 Weight 79.7 kg 80 kg Intake: Oral 480 Output: Urine 700 475 Other: Voiding Method Urinal Urinal Urinal # Voids 1 - Exam - Constitutional General appearance: average body habitus, disheveled, no acute distress - EENT Eyes: EOMI, PERRLA ENT: hard of hearing Ears: bilateral: normal - Neck Neck: normal ROM Carotids: bilateral: upstroke normal Thyroid: bilateral: normal size - Respiratory Respiratory: left: rhonchi, bilateral: rales - Cardiovascular Rhythm: regular Heart sounds: normal: S1, S2 - Gastrointestinal General gastrointestinal: normal bowel sounds - Integumentary Integumentary: normal turgor - Neurologic Neurologic: CNII-XII intact - Musculoskeletal Musculoskeletal: generalized weakness - Psychiatric Psychiatric: A&O x's 3, appropriate affect, intact judgment & insight - Labs CBC & Chem 7: 12/23/17 06:04 12/23/17 06:04 Labs: Abnormal Lab Results - Last 24 Hours (Table) 12/23/17 12/23/17 12/23/17 Range/Units 06:04 06:04 06:04 RBC 3.65 L (4.30-5.90) m/uL Hgb 8.9 L (13.0-17.5) gm/dL Hct 28.8 L (39.0-53.0) % MCV 78.9 L (80.0-100.0) fL MCH 24.5 L (25.0-35.0) pg RDW 17.1 H (11.5-15.5) % Retic Count 3.3 H (0.5-2.0) % PT 58.9 H (9.0-12.0) sec INR 6.4 H* (<1.2) Carbon Dioxide 33 H (22-30) mmol/L BUN 28 H (9-20) mg/dL Microbiology - Last 24 Hours (Table) 12/21/17 17:15 Nasal Culture - Final Nasal Swab Methicillin resist S. aureus 12/20/17 20:40 Blood Culture - Preliminary Blood No Growth after 48 hours Assessment and Plan Assessment: Impression: #1 Dyspnea, multifactorial secondary to acute exacerbation of diastolic congestive heart failure, left lower lobe infiltrate with recent history of MRSA pneumonia, anemia. Suspect possible healthcare acquired pneumonia #2 Recent admission to the hospital and found to have bilateral pulmonary emboli , anticoagulated with warfarin. Supra therapeutic current INR 6.4. #3 Chronic anemia current hemoglobin 8.9. #4 Left lower extremity edema, negative for DVT on previous admission. #5 Recent prolonged hospitalization at [facility] for acute respiratory failure secondary to MRSA pneumonia. #6 History of myocardial infarction. #7 History of diastolic congestive heart failure. Plan: The patient was seen and evaluated by Dr. Cordero. We will continue with current treatment plan. We'll increase his activity as tolerated. We'll continue to follow. Overall prognosis remains quite poor. I, the cosigning physician, performed a history & physical examination of the patient. Lungs sounds with crackles in the bilateral posterior bases. Maintaining good O2 saturations in the 90s on 2 L/m per nasal cannula. I discussed the assessment and plan of care with my nurse practitioner, Stephania Rose. I attest to the above consultation as dictated by her.
--- NOTE | 2017-12-23 17:18 | P.PN ---
Subjective Overall patient reports some improvement in his breathing although she still having some bothersome ronhorous cough. He is been able to walk more in the room but continues to have shortness of breath with more exertion. Otherwise he 's been eating well. No nausea vomiting chest pain or abdominal pain. He reports good urine output and frequent urination after Lasix REVIEW OF SYSTEMS: CONSTITUTIONAL: No fever or chills HEENT: No changes in vision or voice CARDIOVASCULAR: no chest pain or abnormal heart beats, or any swelling in ankles or feet. RESPIRATORY: Per HPI. GASTROINTESTINAL: No abdominal pain, no nausea no vomiting no constipation or diarrhea GENITOURINARY: no any urinary urgency, frequency or burning, and there has been no blood in her urine. no flank pain. MUSCULOSKELETAL hand deformities with ulnar deviation consistent with rheumatoid arthritis NEUROLOGICAL: , no headache. no vision changes, or fainting. No numbness or tingling. Objective - Vital Signs Vital signs: Vital Signs Temp 97.7 F 12/23/17 16:00 Pulse 92 12/23/17 16:40 Resp 18 12/23/17 16:00 BP 109/61 12/23/17 16:00 Pulse Ox 96 12/23/17 16:00 Intake & Output 12/22/17 12/23/17 12/23/17 18:59 06:59 18:59 Intake Total 480 240 Output Total 664 752 3889 Balance -220 475 -760 Weight 79.7 kg 80 kg Intake: Oral 480 240 Output: Urine 483 459 1028 Other: Voiding Method Urinal Urinal Urinal # Voids 1 - Exam General: No distress. Oriented x 3, normal mood and affect , nonlabored breathing appears not to be in distress HEENT: Head: , no visible or palpable masses, depressions, or scaring, conjunctiva clear, sclera non-icteric, EOM intact, PERRL Oral: Mucous membranes moist, no mucosal lesions. Pharynx: Mucosa non-inflamed, no tonsillar hypertrophy or exudate Neck: Supple, without lesions, bruits, or adenopathy, thyroid non-enlarged and non-tender, neck vein pulsations noted even upright position Heart: No cardiomegaly or thrills; regular rate and rhythm, no murmur or gallop Lungs: Diminished breath sounds bilaterally with bilateral inspiratory crackles Abdomen: Bowel sounds normal, no tenderness, organomegaly, masses, or hernia Back: Spine normal without deformity or tenderness, no CVA tenderness Extremities: 2+ pitting edema left more than right , cyanosis deformities right hand, hyperpigmented skin right lower extremity Musculoskeletal: No peripheral joint swelling, pain, erythema. No clubbing Neurologic: CN 2-12 normal. No asterixis Psychiatric: Oriented X3, normal mood and affect. - Labs CBC & Chem 7: 12/23/17 06:04 12/23/17 06:04 Labs: Abnormal Lab Results - Last 24 Hours (Table) 12/23/17 12/23/17 12/23/17 Range/Units 06:04 06:04 06:04 RBC 3.65 L (4.30-5.90) m/uL Hgb 8.9 L (13.0-17.5) gm/dL Hct 28.8 L (39.0-53.0) % MCV 78.9 L (80.0-100.0) fL MCH 24.5 L (25.0-35.0) pg RDW 17.1 H (11.5-15.5) % Retic Count 3.3 H (0.5-2.0) % PT 58.9 H (9.0-12.0) sec INR 6.4 H* (<1.2) Carbon Dioxide (22-30) mmol/L BUN (9-20) mg/dL Iron 28 L (65-175) ug/dL Iron Saturation 11.91 L (15.00-50.00) Ferritin 1061.2 H (22.0-322.0) ng/mL 12/23/17 Range/Units 06:04 RBC (4.30-5.90) m/uL Hgb (13.0-17.5) gm/dL Hct (39.0-53.0) % MCV (80.0-100.0) fL MCH (25.0-35.0) pg RDW (11.5-15.5) % Retic Count (0.5-2.0) % PT (9.0-12.0) sec INR (<1.2) Carbon Dioxide 33 H (22-30) mmol/L BUN 28 H (9-20) mg/dL Iron (65-175) ug/dL Iron Saturation (15.00-50.00) Ferritin (22.0-322.0) ng/mL Microbiology - Last 24 Hours (Table) 12/21/17 17:15 Nasal Culture - Final Nasal Swab Methicillin resist S. aureus 12/20/17 20:40 Blood Culture - Preliminary Blood No Growth after 48 hours Assessment and Plan Plan: 1. Dyspnea Multifactorial due to right lower lobe pneumonia, PE, congestive heart failure acute diastolic and chronic and underlying pulmonary fibrosis as seen on the recent CAT scan Continue antibiotics breathing treatments diuretics by mouth Increase activity as tolerated Abdomen incentive spirometer Sputum culture if possible to obtain a sample 2. Recent pulmonary embolism with supratherapeutic INR Coumadin has been on hold and we will restart when appropriate 3. Anemia, microcytic Monitor hemoglobin obvious signs of bleeding right now Iron studies pending 4. Hypertension His blood pressure has been soft Hold metoprolol, Flomax and spironolactone 4. Severe debility and poor functional status and deconditioning due to recent hospitalizations and poor cardiopulmonary reserve Physical occupational therapy Nutrition Increase activity as tolerated Overall prognosis Strongly recommended to be discharged to subacute rehab as I doubt the patient would be able to manage this at home especially knowing the fact that he was just taking Coumadin and he without any particular checkups and dosing Patient currently refusing to go to subacute rehab but we will continue to discuss this with him and his family I feel that projected discharge given the trajectory of his condition might be after weekend
[2017-12-24 06:48] LABS: Calcium 9.3 mg/dL (8.4-10.2); Potassium 4.3 mmol/L (3.5-5.1)
[2017-12-24 07:04] LABS: Prothrombin Time 47.9 sec (9.0-12.0)
[2017-12-24 07:11] LABS: INR 5.3 (<1.2)
[2017-12-24] MEDS: IPRATROPIUM-ALBUTEROL 3 ML NEB INHALATION SCH ×4 (07:25→20:47)
[2017-12-24] MEDS: SYMBICORT 160-4.5 MCG INHALER INHALATION SCH ×2 (07:25→20:47)
--- NOTE | 2017-12-24 11:26 | P.PN ---
Subjective Summary: This is a 77-year-old male who has quite extensive medical history. He has a history of rheumatoid arthritis with severe hand deformities and debility, progressive shortness of breath and decreased functional capacity. 2 months prior to this admission he was admitted at outside institution for severe shortness of breath and diagnosed with MRSA pneumonia. He spent about 3 weeks there and was discharged to subacute rehabilitation unit where he spent another week and then decided to go home. He states that for couple weeks he was feeling fine but then again beginning of this month he starts deteriorating started being more short of breath . He was admitted in our hospital last week and diagnosed with bilateral PE. He was discharged home as he refused subacute rehabilitation on Coumadin. After just 3 days this week his symptoms reoccurred. He was short of breath even at rest with orthopnea with cough that was productive but he had lots of difficulties to bring up the sputum. Cough was severe and causing lots of shortness of breath. Patient has chronic leg edema that was stable. Chest x-ray showed mild vascular congestion and the right lower lobe infiltrate. His INR was 7 as patient did not understand how to take Coumadin that he was taking 5 mg daily without checking the levels. He also has exposure to work to different fumes and exposure to ammonia when he was a child. CT on the previous admission showed emphysema and pulmonary fibrosis. Patient was seen by cardiology here and they didn't feel that CHF is a cause of his symptoms currently. Pulmonary service evaluated the patient and felt that he shortness of breath due to combination of pneumonia COPD and pulmonary embolism. His Coumadin has been on hold. He is in his usual diuretics without escalation. And pulmonary service started antibiotics.Calcitonin was elevated and his nasal swab was positive for MRSA Interval history: Overall patient reports some improvement in his breathing although she still having some bothersome ronhorous cough. He worked with physical therapy yesterday and was able to walk in the hallway for.. He does report some shortness of breath with exertion but feels that had stress he is much better. There was no fever or chills. She has very difficult home situation as he has who needs lots of help. We discuss option for him to go to subacute rehabilitation as it will be really difficult for him to manage his chronic conditions and due to significant deconditioning but he refused again. He also feels that his symptoms that he shortness of breath are still not where he will then like to be and feels uncomfortable to be dig to go home at this point. Objective - Vital Signs Vital signs: Vital Signs Temp 97.6 F 12/24/17 04:00 Pulse 94 12/24/17 11:07 Resp 18 12/24/17 04:00 BP 126/75 12/24/17 04:00 Pulse Ox 95 12/24/17 04:00 Intake & Output 12/23/17 12/24/17 12/24/17 18:59 06:59 18:59 Intake Total 240 10 120 Output Total 1500 500 Balance -1260 -490 120 Weight 79 kg Intake: IV 10 0.9 10 Oral 240 120 Output: Urine 1500 500 Other: Voiding Method Urinal Urinal # Voids 1 - Exam General: No distress. Oriented x 3, normal mood and affect , nonlabored breathing appears not to be in distress HEENT: Head: , no visible or palpable masses, depressions, or scaring, conjunctiva clear, sclera non-icteric, EOM intact, PERRL Oral: Mucous membranes moist, no mucosal lesions. Pharynx: Mucosa non-inflamed, no tonsillar hypertrophy or exudate Neck: Supple, without lesions, bruits, or adenopathy, thyroid non-enlarged and non-tender, neck vein pulsations noted even upright position Heart: No cardiomegaly or thrills; regular rate and rhythm, no murmur or gallop Lungs: Diminished breath sounds bilaterally with bilateral inspiratory crackles Abdomen: Bowel sounds normal, no tenderness, organomegaly, masses, or hernia Back: Spine normal without deformity or tenderness, no CVA tenderness Extremities: 2+ pitting edema left more than right , cyanosis deformities right hand, hyperpigmented skin right lower extremity Musculoskeletal: No peripheral joint swelling, pain, erythema. No clubbing Neurologic: CN 2-12 normal. No asterixis Psychiatric: Oriented X3, normal mood and affect. - Labs CBC & Chem 7: 12/23/17 06:04 12/24/17 05:41 Labs: Abnormal Lab Results - Last 24 Hours (Table) 12/23/17 12/24/17 12/24/17 Range/Units 06:04 05:41 05:41 PT 47.9 H (9.0-12.0) sec INR 5.3 H* (<1.2) BUN 27 H (9-20) mg/dL Glucose 129 H (74-99) mg/dL Iron 28 L (65-175) ug/dL Iron Saturation 11.91 L (15.00-50.00) Ferritin 1061.2 H (22.0-322.0) ng/mL Microbiology - Last 24 Hours (Table) 12/20/17 20:40 Blood Culture - Preliminary Blood No Growth after 72 hours 12/21/17 17:15 Nasal Culture - Final Nasal Swab Methicillin resist S. aureus Assessment and Plan Plan: 1. Dyspnea Multifactorial due to right lower lobe pneumonia, PE, congestive heart failure acute diastolic and chronic and underlying pulmonary fibrosis as seen on the recent CAT scan Continue antibiotics per pulmonary recommendation breathing treatments Change Lasix to torsemide and it can be dosed once a day Increase activity as tolerated Sputum culture if possible to obtain a sample 2. Recent pulmonary embolism with supratherapeutic INR Coumadin has been on hold We'll need to inquire about possibility for Eliquis 3. Anemia, microcytic no obvious signs of bleeding right now Iron studies pending 4. Hypertension His blood pressure has been soft Hold metoprolol, Flomax and spironolactone 4. Severe debility and poor functional status and deconditioning due to recent hospitalizations and poor cardiopulmonary reserve Physical occupational therapy Nutrition Increase activity as tolerated Overall prognosis Strongly recommended to be discharged to subacute rehab as I doubt the patient would be able to manage this at home especially knowing the fact that he was just taking Coumadin and he without any particular checkups and dosing Patient currently refusing to go to subacute rehab but we will continue to discuss this with him and his family I feel that projected discharge given the trajectory of his condition might be after weekend
[2017-12-24] MEDS: CYANOCOBALAMIN 500 MCG TAB PO SCH (13:01)
[2017-12-24] MEDS: AMOXIC-POT CLAV 875-125MG 1 EACH TAB PO SCH ×2 (13:01→20:48)
[2017-12-24] MEDS: ASCORBIC ACID 500 MG TAB PO SCH (13:01)
[2017-12-24] MEDS: ASPIRIN 81 MG PO SCH (13:02)
[2017-12-24] MEDS: FERROUS SULFATE 325 MG TAB PO SCH ×2 (13:02→20:47)
[2017-12-24] MEDS: FAMOTIDINE 20 MG TAB PO SCH ×2 (13:02→20:48)
[2017-12-24] MEDS: FINASTERIDE 5 MG TAB PO SCH (13:03)
[2017-12-24] MEDS: TORSEMIDE 20 MG TAB PO SCH (13:04)
--- NOTE | 2017-12-24 13:10 | P.PN ---
Subjective Progress Note Date: 12/24/17 Principal diagnosis: Acute exacerbation of diastolic congestive heart failure, left lower lobe infiltrate with recent history of MRSA pneumonia, anemia. This is a pleasant 77-year-old gentleman who follows with Dr. Gonzalez as his primary care physician. He has a history of myocardial infarction, diastolic congestive heart failure, DVT, recent admission to [facility] for MRSA pneumonia with an extended stay subsequent transfer to inpatient rehabilitation and then discharged home. He had been readmitted here 12/10/2017 for congestive heart failure and left lower lobe pneumonia. His echocardiogram had revealed preserved left ventricular systolic function with ejection fraction 50- 55%. There is mild aortic sclerosis, moderate mitral regurgitation. He was also found to have bilateral pulmonary embolism and has been maintained on warfarin in the outpatient setting. He was subsequently discharged on 2017. He presented here to the emergency room again yesterday with continued complaints of shortness of breath. His INR was supratherapeutic initially 5.9. Today 7.1. He is seen in consultation on the selective care unit. He is awake and alert in no acute distress. He is maintaining good O2 saturations in the mid 90s on 2 L/m per nasal cannula. He has been afebrile. Remaining hemodynamically stable. Chest x-rays reveals bilateral patchy infiltrates but still the same as compared to previous admission. No obvious heart failure. Small pleural effusions. White count 10.2. Hemoglobin 9.8. Creatinine 0.90. Troponins negative 3. ProBNP 307. The patient is seen today 12/22/2017 in follow-up on the selective care unit. He remains awake and alert in no acute distress. He is breathing better today as compared to yesterday. Chest x-ray about the same. Maintaining good O2 saturations in the 90s on 2 L/m per nasal cannula. He is continued on vancomycin and Zosyn which could be D escalated. Blood cultures reveal no growth. INR remains high at 7.3. Creatinine 1.25. The patient is seen again today 12/23/2017 in follow-up on the selective care unit. He is currently sitting up in a chair at the bedside. He denies any worsening shortness of breath, cough or congestion. He is maintaining good O2 saturations in the upper 90s on 2 L/m per nasal cannula. He is afebrile. Hemodynamically stable. White count 8.9. Hemoglobin 8.9. INR 6.4. Creatinine 1.10. He is currently on bronchodilators and Augmentin. The patient is seen again today 12/24/2017 in follow-up on the selective care unit. He is currently sitting up in a chair at the bedside. He remains quite weak but has refused to go to a subacute rehabilitation. He currently denies any shortness of breath, cough or congestion. He is maintaining good O2 saturations in the mid 90s on room air he's been afebrile. Current INR 5.3. Creatinine 1.15. Objective - Vital Signs Vital signs: Vital Signs Temp 97.6 F 12/24/17 04:00 Pulse 95 12/24/17 11:17 Resp 18 12/24/17 04:00 BP 126/75 12/24/17 04:00 Pulse Ox 95 12/24/17 04:00 Intake & Output 12/23/17 12/24/17 12/24/17 18:59 06:59 18:59 Intake Total 240 10 120 Output Total 1500 500 Balance -1260 -490 120 Weight 79 kg Intake: IV 10 0.9 10 Oral 240 120 Output: Urine 1500 500 Other: Voiding Method Urinal Urinal # Voids 1 - Exam - Constitutional General appearance: average body habitus, disheveled, no acute distress - EENT Eyes: EOMI, PERRLA ENT: hard of hearing Ears: bilateral: normal - Neck Neck: normal ROM Carotids: bilateral: upstroke normal Thyroid: bilateral: normal size - Respiratory Respiratory: left: rhonchi, bilateral: rales - Cardiovascular Rhythm: regular Heart sounds: normal: S1, S2 - Gastrointestinal General gastrointestinal: normal bowel sounds - Integumentary Integumentary: normal turgor - Neurologic Neurologic: CNII-XII intact - Musculoskeletal Musculoskeletal: generalized weakness - Psychiatric Psychiatric: A&O x's 3, appropriate affect, intact judgment & insight - Labs CBC & Chem 7: 12/23/17 06:04 12/24/17 05:41 Labs: Abnormal Lab Results - Last 24 Hours (Table) 12/23/17 12/24/17 12/24/17 Range/Units 06:04 05:41 05:41 PT 47.9 H (9.0-12.0) sec INR 5.3 H* (<1.2) BUN 27 H (9-20) mg/dL Glucose 129 H (74-99) mg/dL Iron 28 L (65-175) ug/dL Iron Saturation 11.91 L (15.00-50.00) Ferritin 1061.2 H (22.0-322.0) ng/mL Microbiology - Last 24 Hours (Table) 12/20/17 20:40 Blood Culture - Preliminary Blood No Growth after 72 hours 12/21/17 17:15 Nasal Culture - Final Nasal Swab Methicillin resist S. aureus Assessment and Plan Assessment: Impression: #1 Dyspnea, multifactorial secondary to acute exacerbation of diastolic congestive heart failure, left lower lobe infiltrate with recent history of MRSA pneumonia, anemia. Suspect possible healthcare acquired pneumonia #2 Recent admission to the hospital and found to have bilateral pulmonary emboli , anticoagulated with warfarin. Supra therapeutic current INR 5.3. #3 Chronic anemia current hemoglobin 8.9. #4 Left lower extremity edema, negative for DVT on previous admission. #5 Recent prolonged hospitalization at [facility] for acute respiratory failure secondary to MRSA pneumonia. #6 History of myocardial infarction. #7 History of diastolic congestive heart failure. Plan: The patient was seen and evaluated by Dr. Cordero. He is currently stable from the pulmonary standpoint. We will see the patient has needed. I, the cosigning physician, performed a history & physical examination of the patient. Lungs sounds with crackles in the bilateral posterior bases. Maintaining good O2 saturations in the 90s on room air. I discussed the assessment and plan of care with my nurse practitioner, Stephania Rose. I attest to the above consultation as dictated by her.
[2017-12-24] MEDS ORDERED: RX INFO: IV CONTRAST WAS GIVEN 1 EACH MISC MISCELLANE PRN (15:01)
--- NOTE | 2017-12-24 16:59 | CT ---
EXAMINATION TYPE: CT chest wo con DATE OF EXAM: 12/24/2017 COMPARISON: 12/10/2017 HISTORY: Trouble breathing and cough. ILD CT DLP: 699.5 mGycm. Automated Exposure Control for Dose Reduction was Utilized. TECHNIQUE: CT scan of the thorax is performed without IV contrast. FINDINGS: Prone and supine images of the chest were obtained without contrast. There is interstitial infiltrate at the lung bases with honeycomb pattern. There is a interstitial pa tchy reticular nodular infiltrate in the mid and lower lung call. I see no pulmonary mass. There is some pleural thickening bilaterally along the right and left lateral chest wall. There is no mediast inal adenopathy. There are no hilar masses. IMPRESSION: Coarse reticular nodular infiltrates in both lungs. There is tiny, subpleural infiltrate at the lung bases. There is clearing of pleural effusions to large extent compared to last exam. The pulmonary infiltrates overall appear not significantly different than last exam. This is I think most ly related to pulmonary fibrosis.
[2017-12-25 06:58] LABS: Prothrombin Time 35.6 sec (9.0-12.0)
[2017-12-25 07:15] LABS: C Reactive Protein 62.2 mg/L (<10.0); Calcium 9.6 mg/dL (8.4-10.2); Potassium 4.8 mmol/L (3.5-5.1)
[2017-12-25] MEDS: IPRATROPIUM-ALBUTEROL 3 ML NEB INHALATION SCH ×5 (07:25→19:51)
[2017-12-25] MEDS: SYMBICORT 160-4.5 MCG INHALER INHALATION SCH ×2 (07:25→19:51)
[2017-12-25] MEDS: FERROUS SULFATE 325 MG TAB PO SCH ×2 (10:49→20:57)
[2017-12-25] MEDS: ASPIRIN 81 MG PO SCH (10:49)
[2017-12-25] MEDS: AMOXIC-POT CLAV 875-125MG 1 EACH TAB PO SCH ×2 (10:49→20:57)
[2017-12-25] MEDS: ASCORBIC ACID 500 MG TAB PO SCH (10:49)
[2017-12-25] MEDS: CYANOCOBALAMIN 500 MCG TAB PO SCH (10:49)
[2017-12-25] MEDS: FAMOTIDINE 20 MG TAB PO SCH ×2 (10:50→20:57)
[2017-12-25] MEDS: TORSEMIDE 20 MG TAB PO SCH (10:50)
[2017-12-25] MEDS: FINASTERIDE 5 MG TAB PO SCH (10:51)
[2017-12-25] MEDS: IPRATROPIUM-ALBUTEROL 3 ML NEB INHALATION PRN (11:52)
--- NOTE | 2017-12-25 16:26 | P.PN ---
Subjective Progress Note Date: 12/25/17 Patient reports that he is still very short of breath and not close to his baseline. Patient stated that for quite a few years he was unable to lay flat but recently he is sitting up mostly in the bed also. He states that whenever he elevate his legs above his heart level he gets very short of breath and has coughing spells. Patient stated that extra dose of Lasix yesterday help him breathe better but overall he still feels very short of breath and weak. Patient stated that he gets very tired when the physical therapy helps him for ambulation. Patient denies chest pain, palpitation, dizziness, headaches, fever , chills, nausea, vomiting, diarrhea and denies rest of the review of system. Objective - Vital Signs Vital signs: Vital Signs Temp 97.4 F L 12/25/17 08:00 Pulse 96 12/25/17 15:16 Resp 16 12/25/17 08:00 BP 110/62 12/25/17 08:00 Pulse Ox 93 L 12/25/17 08:00 Intake & Output 12/24/17 12/25/17 12/25/17 18:59 06:59 18:59 Intake Total 1680 120 960 Output Total 300 300 225 Balance 1380 -180 735 Weight 78.2 kg Intake: IV 700 0.9 700 Oral 980 120 960 Output: Urine 300 300 225 Other: Voiding Method Urinal Urinal Urinal # Voids 3 1 1 - Constitutional General appearance: Present: cooperative, mild distress - EENT Eyes: Present: EOMI, normal appearance - Neck Neck: Present: normal ROM. Absent: lymphadenopathy, rigidity, thyromegaly - Respiratory Respiratory: bilateral: diminished, rales, wheezing (Few scattered.), negative: rhonchi - Cardiovascular Details: Patient has 3+ bilateral lower extremity pitting edema of chronic type. Rhythm: irregularly irregular Heart sounds: normal: S1 (Variable heart sounds.), S2 - Gastrointestinal General gastrointestinal: Present: normal bowel sounds, soft. Absent: distended , organomegaly, rigid, tenderness - Musculoskeletal Musculoskeletal Comment(s): Patient's bilateral hands has rheumatoid arthritis deformities at metatarsophalangeal joints. Musculoskeletal: Present: generalized weakness - Psychiatric Psychiatric: Present: A&O x's 3, appropriate affect, intact judgment & insight - Allied health notes Allied health notes reviewed: nursing - Labs CBC & Chem 7: 12/23/17 06:04 12/25/17 06:39 Labs: Abnormal Lab Results - Last 24 Hours (Table) 12/25/17 12/25/17 12/25/17 Range/Units 06:39 06:39 06:39 ESR 120 H (0-15) mm/hr PT 35.6 H (9.0-12.0) sec INR 4.0 H (<1.2) Carbon Dioxide 32 H (22-30) mmol/L BUN 27 H (9-20) mg/dL C-Reactive Protein 62.2 H (<10.0) mg/L Microbiology - Last 24 Hours (Table) 12/20/17 20:40 Blood Culture - Preliminary Blood No Growth after 96 hours Assessment and Plan (1) Acute respiratory failure with hypoxia Narrative/Plan: Now slowly improving on current management but patient is still very short of breath with minimal exertion and activity. We will continue current management for now. Patient CT scan of the chest was reported as possible pulmonary fibrosis pulmonary/critical care already on case will wait for their recommendation. Current Visit: Yes Status: Acute Priority: High Code(s): J96.01 - ACUTE RESPIRATORY FAILURE WITH HYPOXIA SNOMED Code(s): 27867292 (2) CHF (congestive heart failure) Narrative/Plan: Patient is still having severe dependency induce edema of the both lower extremities as patient is unable to elevate his legs above the heart level. Patient will be continued on Demadex and as needed Lasix will be given in between to improve his breathing. Patient breathing issue is multi-factorial including but not limited to COPD/CHF/poorly fibrosis and we will continue current management for now. Current Visit: Yes Status: Acute Priority: High Code(s): I50.9 - HEART FAILURE, UNSPECIFIED SNOMED Code(s): 37092939 (3) Pulmonary embolism Narrative/Plan: INR today is 4.0 patient Coumadin will be again held today and INR will be checked in the morning. Current Visit: Yes Status: Acute Code(s): I26.99 - OTHER PULMONARY EMBOLISM WITHOUT ACUTE COR PULMONALE SNOMED Code(s): 33703152 (4) Warfarin-induced coagulopathy Narrative/Plan: Patient's warfarin was held and his INR is slowly trending down. No evidence of bleeding as of now. Current Visit: Yes Status: Acute Priority: High Code(s): D68.32 - HEMORRHAGIC DISORD D/T EXTRINSIC CIRCULATING ANTICOAGULANTS; T45.515A - ADVERSE EFFECT OF ANTICOAGULANTS, INITIAL ENCOUNTER SNOMED Code(s): 14344675 Plan: Patient will be kept in the hospital as he is not close to his baseline yet we will continue current treatment and further recommendation from pulmonary critical care awaited regarding coronary status. Patient will be needing subacute rehabilitation before he can be safely discharged home.
[2017-12-26] MEDS: ACETAMINOPHEN TAB 325 MG TAB PO PRN ×3 (07:12→22:57)
[2017-12-26] MEDS: SYMBICORT 160-4.5 MCG INHALER INHALATION SCH ×2 (07:25→20:57)
[2017-12-26] MEDS: IPRATROPIUM-ALBUTEROL 3 ML NEB INHALATION SCH ×4 (07:25→20:57)
[2017-12-26] MEDS: FAMOTIDINE 20 MG TAB PO SCH ×2 (07:51→20:20)
[2017-12-26] MEDS: ASCORBIC ACID 500 MG TAB PO SCH (07:52)
[2017-12-26] MEDS: FERROUS SULFATE 325 MG TAB PO SCH ×2 (07:52→20:20)
[2017-12-26] MEDS: ASPIRIN 81 MG PO SCH (07:52)
[2017-12-26] MEDS: AMOXIC-POT CLAV 875-125MG 1 EACH TAB PO SCH ×2 (07:52→20:20)
[2017-12-26] MEDS: CYANOCOBALAMIN 500 MCG TAB PO SCH (07:52)
[2017-12-26] MEDS: TORSEMIDE 20 MG TAB PO SCH (07:52)
[2017-12-26] MEDS: FINASTERIDE 5 MG TAB PO SCH (07:52)
[2017-12-26 13:40] LABS: INR 3.1 (<1.2); Prothrombin Time 27.6 sec (9.0-12.0)
--- NOTE | 2017-12-26 14:31 | P.PN ---
Subjective Progress Note Date: 12/26/17 Patient stated that he still is short of breath and family member when the room also they said that patient is unable to lay in bed. Patient stated that he is been short of breath off and on for years and after the treatment at some hospital couple months ago he was able to lay down in his bed for a few days and after that his condition got back to where it was before. Patient has diastolic heart failure with dependent edema and there there was some warfarin dosing errors that has caused him to have high INR which is being improved to 3.1 now and day there is no evidence of bleeding. Patient states that when he laid down he started having coughing and unable to bring up phlegm. Patient stated that he has tried Mucinex and nebulized Mucomyst without significant help and is coughing or clearing his airways. Patient stated that other than that he is doing fine and eating okay and having good bowel movements. Patient denies chest pain, palpitation, fever, chills, headache, dizziness, diaphoresis , nausea, vomiting and denies rest of the review of system. Objective - Vital Signs Vital signs: Vital Signs Temp 96.0 F L 12/26/17 11:29 Pulse 105 H 12/26/17 11:45 Resp 18 12/26/17 11:29 BP 120/70 12/26/17 11:29 Pulse Ox 92 L 12/26/17 11:29 Intake & Output 12/25/17 12/26/17 12/26/17 18:59 06:59 18:59 Intake Total 960 840 Output Total 225 600 400 Balance 735 240 -400 Weight 79.3 kg Intake: Oral 960 840 Output: Urine 225 600 400 Other: Voiding Method Urinal Urinal Toilet Urinal # Voids 1 1 - Constitutional General appearance: Present: average body habitus, cooperative, mild distress - EENT Eyes: Present: EOMI, normal appearance - Respiratory Respiratory: bilateral: diminished, rales, rhonchi, wheezing, negative: CTA - Cardiovascular Rhythm: irregularly irregular Heart sounds: normal: S1, S2 Abnormal Heart Sounds: Absent: systolic murmur, diastolic murmur, rub, S3 Gallop , S4 Gallop - Gastrointestinal General gastrointestinal: Present: normal bowel sounds, soft - Neurologic Neurologic: Present: CNII-XII intact - Psychiatric Psychiatric: Present: A&O x's 3, appropriate affect - Labs CBC & Chem 7: 12/23/17 06:04 12/25/17 06:39 Labs: Abnormal Lab Results - Last 24 Hours (Table) 12/26/17 Range/Units 13:20 PT 27.6 H (9.0-12.0) sec INR 3.1 H (<1.2) Microbiology - Last 24 Hours (Table) 12/26/17 07:30 Gram Stain - Final Sputum Sputum Culture - Final 12/20/17 20:40 Blood Culture - Preliminary Blood No Growth after 120 hours - Imaging and Cardiology Chest x-ray: report reviewed, image reviewed CT scan - chest: report reviewed, image reviewed Assessment and Plan (1) Acute respiratory failure with hypoxia Narrative/Plan: Patient continues to have shortness of breath and coarse central secretions with coughing spells when he tries to talk long sentences. Patient was updated about the computed tomography scan report and nurse was notified to notify Dr. Cordero about that report and get further recommendations. Patient was stating that the respiratory therapist told him that he may have fluid around the lungs that can be taken out to improve his breathing but on the recent CAT scan done 2 days ago there is no effusion mainly issues related to pulmonary fibrosis. Patient does have long-standing history of exposure to fumes and chemicals. Patient stated the breathing treatments helped somewhat so we will continue breathing treatment for now. Further management depends on input from pulmonary team. Current Visit: Yes Status: Acute Priority: High Code(s): J96.01 - ACUTE RESPIRATORY FAILURE WITH HYPOXIA SNOMED Code(s): 88935727 (2) CHF (congestive heart failure) Narrative/Plan: Patient will be continued on Demadex and as needed Lasix will be given in between to improve his breathing. Patient refuses to lie down in bed or even get into the bed that will help elevate his legs to some extent by the patient wants to lose sit on the chair constantly knowing that this is going to worse his leg edema. Patient breathing issue is multi-factorial including but not limited to COPD/CHF/pulmonary fibrosis and patient's current management will be continued for now. Current Visit: Yes Status: Acute Priority: High Code(s): I50.9 - HEART FAILURE, UNSPECIFIED SNOMED Code(s): 11508107 (3) Pulmonary embolism Narrative/Plan: Is stable at this point we'll continue current management. Current Visit: Yes Status: Acute Code(s): I26.99 - OTHER PULMONARY EMBOLISM WITHOUT ACUTE COR PULMONALE SNOMED Code(s): 34046716 (4) Warfarin-induced coagulopathy Narrative/Plan: Patient was hyperanticoagulated and his Coumadin was held but not today INR is 3.1 Will advise pharmacy to start dozing Coumadin depending upon the patient's INR with a therapeutic range of 2.0-3.0. Current Visit: Yes Status: Acute Priority: High Code(s): D68.32 - HEMORRHAGIC DISORD D/T EXTRINSIC CIRCULATING ANTICOAGULANTS; T45.515A - ADVERSE EFFECT OF ANTICOAGULANTS, INITIAL ENCOUNTER SNOMED Code(s): 58264991 Plan: Patient's family was updated per patient's verbal consent and all questions were answered. Patient is not close to his baseline yet, we will continue current treatment for his heart failure and further recommendation from pulmonary critical care awaited regarding pulmonary fibrosis. Again I cannot emphasize enough that patient will be needing subacute rehabilitation before he can be safely discharged home. Time with Patient: Less than 30
[2017-12-26] MEDS ORDERED: WARFARIN 1 MG TAB PO ONE (18:00)
[2017-12-27] MEDS: ACETAMINOPHEN TAB 325 MG TAB PO PRN (05:59)
[2017-12-27 06:32] LABS: INR 2.8 (<1.2); Prothrombin Time 25.2 sec (9.0-12.0)
[2017-12-27] MEDS: IPRATROPIUM-ALBUTEROL 3 ML NEB INHALATION SCH ×4 (07:29→19:22)
[2017-12-27] MEDS: SYMBICORT 160-4.5 MCG INHALER INHALATION SCH ×2 (07:30→19:21)
[2017-12-27] MEDS: AMOXIC-POT CLAV 875-125MG 1 EACH TAB PO SCH ×2 (08:38→20:47)
[2017-12-27] MEDS: ASPIRIN 81 MG PO SCH (08:39)
[2017-12-27] MEDS: FINASTERIDE 5 MG TAB PO SCH (08:39)
[2017-12-27] MEDS: FAMOTIDINE 20 MG TAB PO SCH (08:39)
[2017-12-27] MEDS: ASCORBIC ACID 500 MG TAB PO SCH (08:39)
[2017-12-27] MEDS: CYANOCOBALAMIN 500 MCG TAB PO SCH (08:39)
[2017-12-27] MEDS: TORSEMIDE 20 MG TAB PO SCH (08:39)
[2017-12-27] MEDS: FERROUS SULFATE 325 MG TAB PO SCH ×2 (08:39→20:47)
--- NOTE | 2017-12-27 10:10 | P.PN ---
Subjective Progress Note Date: 12/27/17 Principal diagnosis: shortness of breath Patient is a 77-year-old male who has a past medical history of rheumatoid arthritis with severe hand deformities and debility, decreased functional capacity, pneumonia, and recent bilateral pulmonary emboli who presented to the hospital with complaints of shortness of breath. He was recently hospitalized here and found to have bilateral pulmonary emboli he was discharged home with he refused subacute rehabilitation. After 3 days at home his symptoms recurred. He was short of breath at rest and had orthopnea. On arrival to the emergency department he underwent an extensive evaluation. He is finding have an INR of 7 as he did not understand how to take his Coumadin, CT and prior exam was reviewed and showed emphysema and pulmonary fibrosis. Initially there was concern that he had congestive heart failure but this was ruled out by cardiology. He was seen by pulmonary and was felt that his shortness of breath was due to pneumonia, COPD, and pulmonary embolism. His Coumadin has been held since admission waiting for his INR to come down. He was maintained on his outpatient diuretic doses. Patient seen and examined at bedside. He complains of shortness of breath. He states that nothing he has been doing since October has helped his shortness of breath. He is still coughing and cannot lay flat her mood is much due to his extensive cough. He states it is productive of scant sputum. He denies any chest pain, nausea, vomiting, or constipation. We had an extensive discussion that he has pulmonary fibrosis, pulmonary emboli, and pneumonia and this can make him short of breath. I've let him know that I do not anticipate a quick turnaround due to his chronic medical conditions. I've also advised him that I recommended subacute rehab, however he continues to refuse but has an agreeable to home with home health. Case discussed with Dr. Murillo. Plan will be for bronchoscopy in the morning. He will be given vitamin K 2.5 mg and his Coumadin will be placed on hold. Objective - Vital Signs Vital signs: Vital Signs Temp 96.9 F L 12/27/17 08:00 Pulse 72 12/27/17 08:00 Resp 18 12/27/17 08:00 BP 114/70 12/27/17 08:00 Pulse Ox 93 L 12/27/17 08:00 Intake & Output 12/26/17 12/27/17 12/27/17 18:59 06:59 18:59 Intake Total 240 20 Output Total 400 475 Balance -160 -455 Weight 79 kg Intake: IV 20 0.9 20 Oral 240 Output: Urine 400 475 Other: Voiding Method Toilet Toilet Toilet Urinal Urinal Urinal - Exam General: Chronically ill appearing, no distress, appears at stated age, sitting topped forward Derm: multiple areas of ecchymosis, warm, dry Head: atraumatic, normocephalic, symmetric Eyes: EOMI, no lid lag, anicteric sclera Mouth: no lip lesion, mucus membranes moist Cardiovascular: S1S2 reg, no murmur, positive posterior tibial pulse bilateral, Lungs: decreased bs b/l bases with rhonich that clears with cough , no accessory muscle use Abdominal: soft, nontender to palpation, no guarding, no appreciable organomegaly Ext: no gross muscle atrophy, no edema, no contractures Neuro: CN II-XI grossly intact, no focal neuro deficits Psych: Alert, oriented, easily agitated - Labs CBC & Chem 7: 12/23/17 06:04 12/25/17 06:39 Labs: Abnormal Lab Results - Last 24 Hours (Table) 12/26/17 12/27/17 Range/Units 13:20 06:00 PT 27.6 H 25.2 H (9.0-12.0) sec INR 3.1 H 2.8 H (<1.2) Microbiology - Last 24 Hours (Table) 12/20/17 20:40 Blood Culture - Final Blood No Growth after 144 hours 12/26/17 07:30 Gram Stain - Final Sputum Sputum Culture - Final Assessment and Plan Assessment: Right lower lobe pneumonia (improving from recent discharge), recent bilateral pulmonary embolism, pulmonary fibrosis -Plan for Bronch in the morning -Bronchodilators -Complete course of Augmentin -Unable to obtain at acuity sputum culture - pulmonary hygiene Recent pulmonary embolism with supratherapeutic INR -Coumadin has been on hold -Plan is for bronchopneumonia morning and he will given 2.5 mg of vitamin K encase biopsies are needed, Coumadin will be held tonight Chronic microcytic anemia -Appears to be anemia of chronic disease -Follow outpatient CBCs Hypertension - soft BP -continue to hold metoprolol Chronic diastolic CHF with EF 50-55% - demadex started on 12/26 - BB on hold due to soft Blood pressures - no chronically on ACEI Severe debility with poor functional status due to deconditioning -Continue physical therapy -Patient has refused subacute rehab after an extensive discussion today, home health care -Increase activity as tolerated DVT prophylaxis: Supratherapeutic Coumadin Discussed with: Patient, business case analyst, Dr. Murillo Anticipated discharge: in 24-[address]: Home with home health A total of 35 minutes was spent on the care of this complex patient more than 50 % of the time was spent in counseling and care coordination. Attempted to call Dtr. Clark- no answer.
[2017-12-27] MEDS ORDERED: PHYTONADIONE ORAL 5 MG/5 ML ORAL.SYRG PO STA (11:20)
[2017-12-27] MEDS ORDERED: MIDAZOLAM 2 MG/2 ML VIAL IV PRN (13:36)
[2017-12-27] MEDS ORDERED: LIDOCAINE 1% 20 ML VIAL (10MG/ML) FOR IV START INTRADERMA PRN (13:36)
--- NOTE | 2017-12-27 15:11 | P.PN ---
Subjective Progress Note Date: 12/27/17 Principal diagnosis: Acute exacerbation of diastolic congestive heart failure, left lower lobe infiltrate with recent history of MRSA pneumonia, anemia. This is a pleasant 77-year-old gentleman who follows with Dr. Gonzalez as his primary care physician. He has a history of myocardial infarction, diastolic congestive heart failure, DVT, recent admission to [facility] for MRSA pneumonia with an extended stay subsequent transfer to inpatient rehabilitation and then discharged home. He had been readmitted here 12/10/2017 for congestive heart failure and left lower lobe pneumonia. His echocardiogram had revealed preserved left ventricular systolic function with ejection fraction 50- 55%. There is mild aortic sclerosis, moderate mitral regurgitation. He was also found to have bilateral pulmonary embolism and has been maintained on warfarin in the outpatient setting. He was subsequently discharged on 2017. He presented here to the emergency room again yesterday with continued complaints of shortness of breath. His INR was supratherapeutic initially 5.9. Today 7.1. He is seen in consultation on the selective care unit. He is awake and alert in no acute distress. He is maintaining good O2 saturations in the mid 90s on 2 L/m per nasal cannula. He has been afebrile. Remaining hemodynamically stable. Chest x-rays reveals bilateral patchy infiltrates but still the same as compared to previous admission. No obvious heart failure. Small pleural effusions. White count 10.2. Hemoglobin 9.8. Creatinine 0.90. Troponins negative 3. ProBNP 307. The patient is seen today 12/22/2017 in follow-up on the selective care unit. He remains awake and alert in no acute distress. He is breathing better today as compared to yesterday. Chest x-ray about the same. Maintaining good O2 saturations in the 90s on 2 L/m per nasal cannula. He is continued on vancomycin and Zosyn which could be D escalated. Blood cultures reveal no growth. INR remains high at 7.3. Creatinine 1.25. The patient is seen again today 12/23/2017 in follow-up on the selective care unit. He is currently sitting up in a chair at the bedside. He denies any worsening shortness of breath, cough or congestion. He is maintaining good O2 saturations in the upper 90s on 2 L/m per nasal cannula. He is afebrile. Hemodynamically stable. White count 8.9. Hemoglobin 8.9. INR 6.4. Creatinine 1.10. He is currently on bronchodilators and Augmentin. The patient is seen again today 12/24/2017 in follow-up on the selective care unit. He is currently sitting up in a chair at the bedside. He remains quite weak but has refused to go to a subacute rehabilitation. He currently denies any shortness of breath, cough or congestion. He is maintaining good O2 saturations in the mid 90s on room air he's been afebrile. Current INR 5.3. Creatinine 1.15. The patient was reevaluated today 12/27/2017 with complaints of continued shortness of breath. Still not feeling much better. He does have a loose nonproductive cough. No chills or night sweats. He is maintaining good O2 saturations in the mid 90s on 2 L/m per nasal cannula. His been afebrile. He wanted medically stable. He has been maintained on DuoNeb inhalations, Symbicort, Ventolin without much improvement. INR 2.8. Sputum culture reveals no growth. Objective - Vital Signs Vital signs: Vital Signs Temp 97.3 F L 12/27/17 12:00 Pulse 98 12/27/17 12:00 Resp 18 12/27/17 12:00 BP 115/74 12/27/17 12:00 Pulse Ox 95 12/27/17 12:00 Intake & Output 12/26/17 12/27/17 12/27/17 18:59 06:59 18:59 Intake Total 240 20 360 Output Total 400 475 475 Balance -160 -455 -115 Weight 79 kg Intake: IV 20 0.9 20 Oral 240 360 Output: Urine 400 475 475 Other: Voiding Method Toilet Toilet Toilet Urinal Urinal Urinal # Voids 0 # Bowel Movements 0 - Exam - Constitutional General appearance: average body habitus, disheveled, no acute distress - EENT Eyes: EOMI, PERRLA ENT: hard of hearing Ears: bilateral: normal - Neck Neck: normal ROM Carotids: bilateral: upstroke normal Thyroid: bilateral: normal size - Respiratory Respiratory: left: rhonchi, bilateral: rales - Cardiovascular Rhythm: regular Heart sounds: normal: S1, S2 - Gastrointestinal General gastrointestinal: normal bowel sounds - Integumentary Integumentary: normal turgor - Neurologic Neurologic: CNII-XII intact - Musculoskeletal Musculoskeletal: generalized weakness - Psychiatric Psychiatric: A&O x's 3, appropriate affect, intact judgment & insight - Labs CBC & Chem 7: 12/23/17 06:04 12/25/17 06:39 Labs: Abnormal Lab Results - Last 24 Hours (Table) 12/27/17 Range/Units 06:00 PT 25.2 H (9.0-12.0) sec INR 2.8 H (<1.2) Microbiology - Last 24 Hours (Table) 12/20/17 20:40 Blood Culture - Final Blood No Growth after 144 hours Assessment and Plan Assessment: Impression: #1 Dyspnea, multifactorial secondary to acute exacerbation of diastolic congestive heart failure, left lower lobe infiltrate with recent history of MRSA pneumonia, anemia. Suspect possible healthcare acquired pneumonia #2 Recent admission to the hospital and found to have bilateral pulmonary emboli , anticoagulated with warfarin. Therapeutic current INR 2.8. #3 Chronic anemia current hemoglobin 8.9. #4 Left lower extremity edema, negative for DVT on previous admission. #5 Recent prolonged hospitalization at [facility] for acute respiratory failure secondary to MRSA pneumonia. #6 History of myocardial infarction. #7 History of diastolic congestive heart failure. Plan: The patient was seen and evaluated by Dr. Murillo. The patient has been slow to progress and is still not quite back to his baseline. We'll plan for bronchoscopy with BAL in the a.m. He'll receive 2.5 mg of vitamin K today. Hold warfarin for now. We'll continue to follow. I, the cosigning physician, performed a history & physical examination of the patient. Lungs sounds with crackles in the bilateral posterior bases. Maintaining good O2 saturations in the 90s on 2 L/m per nasal cannula. I discussed the assessment and plan of care with my nurse practitioner, Stephania Rose. I attest to the above consultation as dictated by her.
[2017-12-27] MEDS: LACTATED RINGERS 1,000 ML IV SCH (16:34)
[2017-12-27] MEDS ORDERED: WARFARIN 1 MG TAB PO ONE (18:00)
[2017-12-28] MEDS: IPRATROPIUM-ALBUTEROL 3 ML NEB INHALATION SCH ×4 (07:04→19:17)
[2017-12-28] MEDS: SYMBICORT 160-4.5 MCG INHALER INHALATION SCH ×2 (07:04→19:17)
[2017-12-28 08:04] LABS: INR 1.8 (<1.2); Prothrombin Time 16.5 sec (9.0-12.0)
[2017-12-28] MEDS ORDERED: GLYCOPYRROLATE 0.2 MG/ML 2 ML VIAL ONE (10:11)
[2017-12-28] MEDS ORDERED: PROPOFOL 10 MG/ML 20 ML VIAL IV ONE (10:11)
[2017-12-28] MEDS ORDERED: MIDAZOLAM 2 MG/2 ML VIAL ONE (10:11)
[2017-12-28] MEDS ORDERED: LIDOCAINE 1% INJ 10MG/ML (20 ML MDV) ONE (10:11)
[2017-12-28] MEDS ORDERED: HYDROmorphone (PF) 1 MG/ML ONE (10:11)
[2017-12-28] MEDS ORDERED: LACTATED RINGERS 1,000 ML IV ONE (10:21)
[2017-12-28] MEDS ORDERED: LIDOCAINE 2% INJ 20 MG/ML INTRATRACH ONE (10:37)
--- NOTE | 2017-12-28 11:02 | P.PN ---
Subjective Progress Note Date: 12/28/17 This is a pleasant 77-year-old gentleman who follows with Dr. Gonzalez as his primary care physician. He has a history of myocardial infarction, diastolic congestive heart failure, DVT, recent admission to [facility] for MRSA pneumonia with an extended stay subsequent transfer to inpatient rehabilitation and then discharged home. He had been readmitted here 12/10/2017 for congestive heart failure and left lower lobe pneumonia. His echocardiogram had revealed preserved left ventricular systolic function with ejection fraction 50- 55%. There is mild aortic sclerosis, moderate mitral regurgitation. He was also found to have bilateral pulmonary embolism and has been maintained on warfarin in the outpatient setting. He was subsequently discharged on 2017. He presented here to the emergency room again yesterday with continued complaints of shortness of breath. His INR was supratherapeutic initially 5.9. Today 7.1. He is seen in consultation on the selective care unit. He is awake and alert in no acute distress. He is maintaining good O2 saturations in the mid 90s on 2 L/m per nasal cannula. He has been afebrile. Remaining hemodynamically stable. Chest x-rays reveals bilateral patchy infiltrates but still the same as compared to previous admission. No obvious heart failure. Small pleural effusions. White count 10.2. Hemoglobin 9.8. Creatinine 0.90. Troponins negative 3. ProBNP 307. The patient is seen today 12/22/2017 in follow-up on the selective care unit. He remains awake and alert in no acute distress. He is breathing better today as compared to yesterday. Chest x-ray about the same. Maintaining good O2 saturations in the 90s on 2 L/m per nasal cannula. He is continued on vancomycin and Zosyn which could be D escalated. Blood cultures reveal no growth. INR remains high at 7.3. Creatinine 1.25. The patient is seen again today 12/23/2017 in follow-up on the selective care unit. He is currently sitting up in a chair at the bedside. He denies any worsening shortness of breath, cough or congestion. He is maintaining good O2 saturations in the upper 90s on 2 L/m per nasal cannula. He is afebrile. Hemodynamically stable. White count 8.9. Hemoglobin 8.9. INR 6.4. Creatinine 1.10. He is currently on bronchodilators and Augmentin. The patient is seen again today 12/24/2017 in follow-up on the selective care unit. He is currently sitting up in a chair at the bedside. He remains quite weak but has refused to go to a subacute rehabilitation. He currently denies any shortness of breath, cough or congestion. He is maintaining good O2 saturations in the mid 90s on room air he's been afebrile. Current INR 5.3. Creatinine 1.15. The patient was reevaluated today 12/27/2017 with complaints of continued shortness of breath. Still not feeling much better. He does have a loose nonproductive cough. No chills or night sweats. He is maintaining good O2 saturations in the mid 90s on 2 L/m per nasal cannula. His been afebrile. He wanted medically stable. He has been maintained on DuoNeb inhalations, Symbicort, Ventolin without much improvement. INR 2.8. Sputum culture reveals no growth. On today's evaluation of a 2017, the patient is still having shortness of breath. We are ready to proceed with bronchoscopy and therapeutic it was suctioning and bronchioloalveolar lavage. The patient has no fever or chills. He is on oxygen at 2 L/m nasal cannula and the saturation is around above 90%. No chest pain. He is on DuoNeb nebulized treatments and he is also on Symbicort. Further antibiotic coverage the patient is on Augmentin. The patient was given vitamin K yesterday 2 mg INR today is down to 1.8. As such, the patient will be taken to the bronchoscopy suite to undergo a therapeutic airway suctioning and the bronchioloalveolar lavage and further recommendations are to follow based on the findings. Objective - Vital Signs Vital signs: Vital Signs Temp 97.9 F 12/28/17 07:49 Pulse 100 12/28/17 07:49 Resp 18 12/28/17 07:49 BP 109/61 12/28/17 07:49 Pulse Ox 95 12/28/17 07:49 Intake & Output 12/27/17 12/28/17 12/28/17 18:59 06:59 18:59 Intake Total 1110 220 Output Total 475 Balance 635 220 Weight 76.294 kg Intake: Oral 1110 220 Output: Urine 475 Other: Voiding Method Toilet Toilet Toilet Urinal Urinal Urinal # Voids 6 1 # Bowel Movements 1 - Exam - Constitutional General appearance: average body habitus, disheveled, no acute distress - EENT Eyes: EOMI, PERRLA ENT: hard of hearing Ears: bilateral: normal - Neck Neck: normal ROM Carotids: bilateral: upstroke normal Thyroid: bilateral: normal size - Respiratory Respiratory: left: rhonchi, bilateral: rales - Cardiovascular Rhythm: regular Heart sounds: normal: S1, S2 - Gastrointestinal General gastrointestinal: normal bowel sounds - Integumentary Integumentary: normal turgor - Neurologic Neurologic: CNII-XII intact - Musculoskeletal Musculoskeletal: generalized weakness - Psychiatric Psychiatric: A&O x's 3, appropriate affect, intact judgment & insight - Labs CBC & Chem 7: 12/23/17 06:04 12/25/17 06:39 Labs: Abnormal Lab Results - Last 24 Hours (Table) 12/28/17 Range/Units 07:30 PT 16.5 H (9.0-12.0) sec INR 1.8 H (<1.2) Assessment and Plan Plan: Assessment 1 recent MRSA pneumonia with ongoing difficulty breathing. The follow-up CAT scan was done and showed some minimal residual groundglass changes with small bilateral pleural effusions, overall picture is improved compared to previous CAT scan of the chest. Nevertheless the patient continues to be symptomatic and I suspect significant amount of mucus inspissation/plugging within the airways. Based on that, at therapeutic it was suctioning will be done and the flexible bronchoscopy will be performed today. 2 recent hospitalization for pulmonary embolism bilateral and patient is currently on warfarin INR is at 1.8 3 lower extremity edema the left negative for DVT of admission 4 recent hospitalization at [facility] for MRSA pneumonia 5 coronary artery disease with previous NE 6 CHF with diastolic failure Plan Continue same treatment. INR is at 1.8. Proceed with flexible bronchoscopy and therapeutic it was suctioning and bronchial lavage. Consent was obtained and the procedure will be done this morning.
--- NOTE | 2017-12-28 11:08 | P.PCN ---
Date of Procedure: 12/28/17 Preoperative Diagnosis: MRSA pneumonia Postoperative Diagnosis: Extensive mucus inspissation/plugging Throughout the airways, post flexible bronchoscopy and therapeutic airway suctioning. This is likely reminiscent of a previous MRSA pneumonia. Procedure(s) Performed: Flexible bronchoscopy, removal of mucous plugs, bronchioloalveolar lavage Anesthesia: MAC Surgeon: Jennifer Murillo Estimated Blood Loss (ml): 0 Pathology: other Condition: stable Disposition: floor Operative Findings: This procedure was done in the bronchoscopy suite. The patient was given a combination of propofol, Dilaudid and Versed. After achieving adequate sedation , the flexible bronchoscope was inserted through the right nostril and was advanced into the posterior oropharynx. Copious amount of nasopharyngeal and pharyngeal secretions were encountered that were suctioned out. I was able to pass the flexible bronchoscope into the laryngeal structures and upper airway structures were all inspected including the epiglottis, arytenoids, vallecula and vocal cords and all of the structures were within normal limits. A total of 2 mL of 1% lidocaine was applied to the vocal cords and following that the bronchoscope was advanced to the upper trachea. Immediately it was noted that the patient had a [id number] degree of tracheal bronchomalacia. At the same time there was extensive amount of thick purulent mucous material occupying the entire airways and this involved the trachea, bilateral mainstem bronchi, upper lobes bilaterally and lower lobes bilaterally including the various segments. Therapeutic airway suctioning was done. The secretions were irrigated with saline and there was suctioned out. Note that the bronchoscope had to be removed on multiple occasions and reinserted as the patient's thick purulent respiratory secretions were causing complete plugging of the working chamber of the flexible bronchoscope. At the end, multiple pieces of large mucoid/purulent/thick material was aspirated from the patient's lungs. Therapeutic airway suctioning was performed and airway patency was achieved. Visualized airways included trachea, bilateral mainstem bronchi, right upper lobe and right middle lobe right lower lobe bronchus, left upper lobe and left lower lobe bronchus along with various segments. The bronchioloalveolar lavage of the left lung was also done. At the end cedure, the patient did well. Oxygen was maintained above 90%. The flexible bronchoscope was removed and the samples were sent for culture and the patient will be chest to recovery or back to his room in a stable condition. We'll make further recommendations based on the results of the cultures. In my opinion, the patient may need another bronchoscopy within next 24-48 hours for reevaluation taken a constellation the extensive amount of mucus plugging the patient's airways. Pictures were added in the chart.
[2017-12-28] MEDS: AMOXIC-POT CLAV 875-125MG 1 EACH TAB PO SCH ×2 (12:04→20:48)
[2017-12-28] MEDS: ASPIRIN 81 MG PO SCH (12:05)
[2017-12-28] MEDS: FERROUS SULFATE 325 MG TAB PO SCH ×2 (12:05→20:48)
[2017-12-28] MEDS: FAMOTIDINE 20 MG TAB PO SCH (12:05)
[2017-12-28] MEDS: CYANOCOBALAMIN 500 MCG TAB PO SCH (12:05)
[2017-12-28] MEDS: TORSEMIDE 20 MG TAB PO SCH (12:05)
[2017-12-28] MEDS: ASCORBIC ACID 500 MG TAB PO SCH (12:05)
[2017-12-28] MEDS: LACTATED RINGERS 1,000 ML IV SCH (12:06)
[2017-12-28] MEDS: FINASTERIDE 5 MG TAB PO SCH (13:27)
--- NOTE | 2017-12-28 15:27 | P.PN ---
Subjective Progress Note Date: 12/28/17 Principal diagnosis: SOB Just came back from bronch, asking for food. SOB better after bronch. No fever or chills. No chest pain. Objective - Vital Signs Vital signs: Vital Signs Temp 97.9 F 12/28/17 07:49 Pulse 100 12/28/17 07:49 Resp 18 12/28/17 07:49 BP 109/61 12/28/17 07:49 Pulse Ox 95 12/28/17 07:49 Intake & Output 12/27/17 12/28/17 12/28/17 18:59 06:59 18:59 Intake Total 1110 220 840 Output Total 475 Balance 635 220 840 Weight 76.294 kg Intake: IV 600 Oral 1110 220 240 Output: Urine 475 Other: Voiding Method Toilet Toilet Toilet Urinal Urinal Urinal # Voids 6 1 # Bowel Movements 1 - Exam General: Chronically ill appearing, no distress, appears at stated age, sitting topped forward Derm: multiple areas of ecchymosis, warm, dry Head: atraumatic, normocephalic, symmetric Eyes: EOMI, no lid lag, anicteric sclera Mouth: no lip lesion, mucus membranes moist Cardiovascular: S1S2 reg, no murmur, positive posterior tibial pulse bilateral, Lungs: decreased bs b/l bases with rhonich that clears with cough , no accessory muscle use Abdominal: soft, nontender to palpation, no guarding, no appreciable organomegaly Ext: no gross muscle atrophy, no edema, no contractures Neuro: CN II-XI grossly intact, no focal neuro deficits Psych: Alert, oriented, easily agitated - Labs CBC & Chem 7: 12/23/17 06:04 12/25/17 06:39 Labs: Abnormal Lab Results - Last 24 Hours (Table) 12/28/17 Range/Units 07:30 PT 16.5 H (9.0-12.0) sec INR 1.8 H (<1.2) Assessment and Plan Plan: Right lower lobe pneumonia (improving from recent discharge), recent bilateral pulmonary embolism, pulmonary fibrosis -S/P Bronch 12/28--mucus plugs consistent with MRSA pneumonia -Continue bronchodilators, augmentin -Continue pulmonary hygiene Recent pulmonary embolism with supratherapeutic INR -Resume coumadin -Coumadin was on hold for bronch. Chronic microcytic anemia -Appears to be anemia of chronic disease -Follow outpatient CBCs Hypertension - soft BP -continue to hold metoprolol Chronic diastolic CHF with EF 50-55% - demadex started on 12/26 - BB on hold due to soft Blood pressures - no chronically on ACEI Severe debility with poor functional status due to deconditioning -Continue physical therapy -Patient has refused subacute rehab earlier -Increase activity as tolerated DVT prophylaxis: on Coumadin Discussed with: Patient Anticipated discharge: in [address]: Home with home health A total of 35 minutes was spent on the care of this complex patient more than 50 % of the time was spent in counseling and care coordination.
[2017-12-28] MEDS ORDERED: WARFARIN 0.5 MG TAB PO ONE (18:00)
[2017-12-28] MEDS: ACETAMINOPHEN TAB 325 MG TAB PO PRN (19:31)
[2017-12-29] MEDS: ACETAMINOPHEN TAB 325 MG TAB PO PRN (05:31)
[2017-12-29] MEDS: IPRATROPIUM-ALBUTEROL 3 ML NEB INHALATION SCH ×4 (06:59→19:58)
[2017-12-29] MEDS: SYMBICORT 160-4.5 MCG INHALER INHALATION SCH ×2 (06:59→19:59)
[2017-12-29 08:23] LABS: Anisocytosis Slight; Basophils # (A) 0.1 k/uL (0-0.2); Basophils % (A) 1 %; Eosinophils # (A) 0.9 k/uL (0-0.7); Eosinophils % (A) 10 %; HCT 27.3 % (39.0-53.0); HGB 8.5 gm/dL (13.0-17.5); Hypochromasia Moderate; Lymphocytes # (A) 1.2 k/uL (1.0-4.8); Lymphocytes % (A) 13 %; MCH 24.8 pg (25.0-35.0); MCHC 31.2 g/dL (31.0-37.0); MCV 79.6 fL (80.0-100.0); Mean Platelet Volume 6.6; Microcytosis Slight; Monocytes # (A) 0.9 k/uL (0-1.0); Monocytes % (A) 10 %; Neutrophils # (A) 5.6 k/uL (1.3-7.7); Neutrophils % (A) 62 %; Platelet Count 302 k/uL (150-450); RBC 3.43 m/uL (4.30-5.90); RDW 17.7 % (11.5-15.5)
[2017-12-29 08:24] LABS: INR 1.5 (<1.2); Prothrombin Time 13.6 sec (9.0-12.0)
[2017-12-29 08:50] LABS: Magnesium 2.1 mg/dL (1.6-2.3)
[2017-12-29] MEDS: AMOXIC-POT CLAV 875-125MG 1 EACH TAB PO SCH (10:17)
[2017-12-29] MEDS: ASCORBIC ACID 500 MG TAB PO SCH (10:17)
[2017-12-29] MEDS: CYANOCOBALAMIN 500 MCG TAB PO SCH (10:17)
[2017-12-29] MEDS: FERROUS SULFATE 325 MG TAB PO SCH ×2 (10:17→20:27)
[2017-12-29] MEDS: TORSEMIDE 20 MG TAB PO SCH (10:17)
[2017-12-29] MEDS: ASPIRIN 81 MG PO SCH (10:17)
[2017-12-29] MEDS: FINASTERIDE 5 MG TAB PO SCH (10:17)
[2017-12-29] MEDS: FAMOTIDINE 20 MG TAB PO SCH (10:17)
[2017-12-29 11:14] VITALS: BMI 28.0
--- NOTE | 2017-12-29 12:23 | P.PN ---
Subjective Progress Note Date: 12/29/17 Principal diagnosis: SOB Patient is feeling better today, yesterday he had 1000 mL of urine in his bladder, a Valenzuela catheter was inserted. Objective - Vital Signs Vital signs: Vital Signs Temp 98.4 F 12/29/17 06:01 Pulse 100 12/29/17 07:19 Resp 18 12/29/17 06:01 BP 101/61 12/29/17 06:01 Pulse Ox 96 12/29/17 06:01 Intake & Output 12/28/17 12/29/17 12/29/17 18:59 06:59 18:59 Intake Total 840 320 Output Total 1000 1250 Balance -160 -930 Weight 76.294 kg 76.5 kg 76.5 kg Intake: IV 600 Oral 240 320 Output: Urine 1000 1250 Straight 1000 Other: Voiding Method Toilet Indwelling Catheter Indwelling Catheter Urinal - Exam General: Chronically ill appearing, no distress, appears at stated age, sitting topped forward Derm: multiple areas of ecchymosis, warm, dry Head: atraumatic, normocephalic, symmetric Eyes: EOMI, no lid lag, anicteric sclera Mouth: no lip lesion, mucus membranes moist Cardiovascular: S1S2 reg, no murmur, positive posterior tibial pulse bilateral, Lungs: decreased bs b/l bases with rhonich that clears with cough , no accessory muscle use Abdominal: soft, nontender to palpation, no guarding, no appreciable organomegaly Ext: no gross muscle atrophy, no edema, no contractures Neuro: CN II-XI grossly intact, no focal neuro deficits Psych: Alert, oriented, easily agitated - Labs CBC & Chem 7: 12/29/17 06:49 12/29/17 06:49 Labs: Abnormal Lab Results - Last 24 Hours (Table) 12/29/17 12/29/17 12/29/17 Range/Units 06:49 06:49 06:49 RBC 3.43 L (4.30-5.90) m/uL Hgb 8.5 L (13.0-17.5) gm/dL Hct 27.3 L (39.0-53.0) % MCV 79.6 L (80.0-100.0) fL MCH 24.8 L (25.0-35.0) pg RDW 17.7 H (11.5-15.5) % Eosinophils # 0.9 H (0-0.7) k/uL PT 13.6 H (9.0-12.0) sec INR 1.5 H (<1.2) Carbon Dioxide 32 H (22-30) mmol/L BUN 30 H (9-20) mg/dL Microbiology - Last 24 Hours (Table) 12/28/17 10:30 Gram Stain - Preliminary Bronchial Washings - Random Bronchial Washings Culture - Preliminary 12/28/17 10:30 Acid Fast Bacilli Smear - Final Bronchial Washings - Random Acid Fast Bacilli Culture - Preliminary 12/28/17 10:30 Fungal Culture - Preliminary Bronchial Washings - Random Assessment and Plan Plan: Right lower lobe pneumonia (improving from recent discharge), recent bilateral pulmonary embolism, pulmonary fibrosis -S/P Bronch 12/28--mucus plugs consistent with MRSA pneumonia -Awaiting bronchial washings cultures -Discussed with Dr. Murillo -Continue bronchodilators -Switch augmentin to Bactrim, as most of that was isolated is resistant to penicillin and sensitive to Bactrim -Continue pulmonary hygiene Recent pulmonary embolism with supratherapeutic INR -Resume coumadin, follow INR -Coumadin was on hold for bronch. Chronic microcytic anemia -Appears to be anemia of chronic disease -Follow outpatient CBCs Hypertension - soft BP -continue to hold metoprolol Chronic diastolic CHF with EF 50-55% - demadex started on 12/26 - BB on hold due to soft Blood pressures - not chronically on ACEI Severe debility with poor functional status due to deconditioning -Continue physical therapy -Patient has refused subacute rehab earlier -Increase activity as tolerated DVT prophylaxis: on Coumadin Discussed with: Patient Anticipated discharge: in [address]: Home with home health A total of 35 minutes was spent on the care of this complex patient more than 50 % of the time was spent in counseling and care coordination.
--- NOTE | 2017-12-29 14:13 | P.PN ---
Subjective Progress Note Date: 12/29/17 Principal diagnosis: Acute exacerbation of diastolic congestive heart failure, left lower lobe infiltrate with recent history of MRSA pneumonia, anemia. This is a pleasant 77-year-old gentleman who follows with Dr. Gonzalez as his primary care physician. He has a history of myocardial infarction, diastolic congestive heart failure, DVT, recent admission to [facility] for MRSA pneumonia with an extended stay subsequent transfer to inpatient rehabilitation and then discharged home. He had been readmitted here 12/10/2017 for congestive heart failure and left lower lobe pneumonia. His echocardiogram had revealed preserved left ventricular systolic function with ejection fraction 50- 55%. There is mild aortic sclerosis, moderate mitral regurgitation. He was also found to have bilateral pulmonary embolism and has been maintained on warfarin in the outpatient setting. He was subsequently discharged on 2017. He presented here to the emergency room again yesterday with continued complaints of shortness of breath. His INR was supratherapeutic initially 5.9. Today 7.1. He is seen in consultation on the selective care unit. He is awake and alert in no acute distress. He is maintaining good O2 saturations in the mid 90s on 2 L/m per nasal cannula. He has been afebrile. Remaining hemodynamically stable. Chest x-rays reveals bilateral patchy infiltrates but still the same as compared to previous admission. No obvious heart failure. Small pleural effusions. White count 10.2. Hemoglobin 9.8. Creatinine 0.90. Troponins negative 3. ProBNP 307. The patient is seen today 12/22/2017 in follow-up on the selective care unit. He remains awake and alert in no acute distress. He is breathing better today as compared to yesterday. Chest x-ray about the same. Maintaining good O2 saturations in the 90s on 2 L/m per nasal cannula. He is continued on vancomycin and Zosyn which could be D escalated. Blood cultures reveal no growth. INR remains high at 7.3. Creatinine 1.25. The patient is seen again today 12/23/2017 in follow-up on the selective care unit. He is currently sitting up in a chair at the bedside. He denies any worsening shortness of breath, cough or congestion. He is maintaining good O2 saturations in the upper 90s on 2 L/m per nasal cannula. He is afebrile. Hemodynamically stable. White count 8.9. Hemoglobin 8.9. INR 6.4. Creatinine 1.10. He is currently on bronchodilators and Augmentin. The patient is seen again today 12/24/2017 in follow-up on the selective care unit. He is currently sitting up in a chair at the bedside. He remains quite weak but has refused to go to a subacute rehabilitation. He currently denies any shortness of breath, cough or congestion. He is maintaining good O2 saturations in the mid 90s on room air he's been afebrile. Current INR 5.3. Creatinine 1.15. The patient was reevaluated today 12/27/2017 with complaints of continued shortness of breath. Still not feeling much better. He does have a loose nonproductive cough. No chills or night sweats. He is maintaining good O2 saturations in the mid 90s on 2 L/m per nasal cannula. His been afebrile. He wanted medically stable. He has been maintained on DuoNeb inhalations, Symbicort, Ventolin without much improvement. INR 2.8. Sputum culture reveals no growth. On today's evaluation of a 2017, the patient is still having shortness of breath. We are ready to proceed with bronchoscopy and therapeutic it was suctioning and bronchioloalveolar lavage. The patient has no fever or chills. He is on oxygen at 2 L/m nasal cannula and the saturation is around above 90%. No chest pain. He is on DuoNeb nebulized treatments and he is also on Symbicort. Further antibiotic coverage the patient is on Augmentin. The patient was given vitamin K yesterday 2 mg INR today is down to 1.8. As such, the patient will be taken to the bronchoscopy suite to undergo a therapeutic airway suctioning and the bronchioloalveolar lavage and further recommendations are to follow based on the findings. The patient is seen today 12/29/2017 in follow-up on the regular medical floor. He is currently resting quite comfortably in bed. He is awake and alert in no acute distress. He is quite improved today as compared to yesterday following his bronchoscopy. He was actually able to sleep up in the bed last night which he hasn't been able to do for quite some time. He did have a significant amount of thick, sticky secretions removed during the bronchoscopy. Both lungs and there are segments were all involved. He does continue with a loose nonproductive cough. This is improved but still not quite back to his baseline. Cultures are pending. He is maintaining good O2 saturations in the 90s on 2 L/m per nasal cannula now. He is continued on Bactrim. Objective - Vital Signs Vital signs: Vital Signs Temp 98.4 F 12/29/17 06:01 Pulse 100 12/29/17 12:21 Resp 18 12/29/17 06:01 BP 101/61 12/29/17 06:01 Pulse Ox 96 12/29/17 06:01 Intake & Output 12/28/17 12/29/17 12/29/17 18:59 06:59 18:59 Intake Total 840 320 Output Total 1000 1250 Balance -160 -930 Weight 76.294 kg 76.5 kg 76.5 kg Intake: IV 600 Oral 240 320 Output: Urine 1000 1250 Straight 1000 Other: Voiding Method Toilet Indwelling Catheter Indwelling Catheter Urinal - Exam - Constitutional General appearance: average body habitus, disheveled, no acute distress - EENT Eyes: EOMI, PERRLA ENT: hard of hearing Ears: bilateral: normal - Neck Neck: normal ROM Carotids: bilateral: upstroke normal Thyroid: bilateral: normal size - Respiratory Respiratory: Bilateral scattered rhonchi, crackles in the posterior bases - Cardiovascular Rhythm: regular Heart sounds: normal: S1, S2 - Gastrointestinal General gastrointestinal: normal bowel sounds - Integumentary Integumentary: normal turgor - Neurologic Neurologic: CNII-XII intact - Musculoskeletal Musculoskeletal: generalized weakness - Psychiatric Psychiatric: A&O x's 3, appropriate affect, intact judgment & insight - Labs CBC & Chem 7: 12/29/17 06:49 12/29/17 06:49 Labs: Abnormal Lab Results - Last 24 Hours (Table) 12/29/17 12/29/17 12/29/17 Range/Units 06:49 06:49 06:49 RBC 3.43 L (4.30-5.90) m/uL Hgb 8.5 L (13.0-17.5) gm/dL Hct 27.3 L (39.0-53.0) % MCV 79.6 L (80.0-100.0) fL MCH 24.8 L (25.0-35.0) pg RDW 17.7 H (11.5-15.5) % Eosinophils # 0.9 H (0-0.7) k/uL PT 13.6 H (9.0-12.0) sec INR 1.5 H (<1.2) Carbon Dioxide 32 H (22-30) mmol/L BUN 30 H (9-20) mg/dL Microbiology - Last 24 Hours (Table) 12/28/17 10:30 Gram Stain - Preliminary Bronchial Washings - Random Bronchial Washings Culture - Preliminary 12/28/17 10:30 Acid Fast Bacilli Smear - Final Bronchial Washings - Random Acid Fast Bacilli Culture - Preliminary 12/28/17 10:30 Fungal Culture - Preliminary Bronchial Washings - Random Assessment and Plan Assessment: Impression: #1 Dyspnea, multifactorial secondary to acute exacerbation of diastolic congestive heart failure, left lower lobe infiltrate with recent history of MRSA pneumonia, anemia. Suspect possible healthcare acquired pneumonia related status post bronchoscopy with BAL. Cultures are pending. #2 Recent admission to the hospital and found to have bilateral pulmonary emboli , anticoagulated with warfarin. Therapeutic current INR 2.8. #3 Chronic anemia current hemoglobin 8.9. #4 Left lower extremity edema, negative for DVT on previous admission. #5 Recent prolonged hospitalization at [facility] for acute respiratory failure secondary to MRSA pneumonia. #6 History of myocardial infarction. #7 History of diastolic congestive heart failure. Plan: The patient was seen and evaluated by Dr. Murillo. The patient is much improved today as compared to yesterday but is still not quite back to his baseline. We'll plan for repeat bronchoscopy with BAL in the a.m. We'll continue to follow. I, the cosigning physician, performed a history & physical examination of the patient. Lungs sounds with few scattered rhonchi crackles in the bilateral posterior bases. Maintaining good O2 saturations in the 90s on 2 L/m per nasal cannula. I discussed the assessment and plan of care with my nurse practitioner , Stephania Rose. I attest to the above consultation as dictated by her.
[2017-12-29] MEDS: LACTATED RINGERS 1,000 ML IV SCH (14:54)
[2017-12-29] MEDS: SULFAMETHOX-TMP 800-160MG 1 EACH TAB PO SCH ×2 (15:40→21:09)
[2017-12-29] MEDS ORDERED: WARFARIN 0.5 MG TAB PO ONE (18:00)
[2017-12-30] MEDS: IPRATROPIUM-ALBUTEROL 3 ML NEB INHALATION SCH ×4 (06:08→19:51)
[2017-12-30 07:50] LABS: INR 1.4 (<1.2); Prothrombin Time 13.3 sec (9.0-12.0)
[2017-12-30] MEDS: SULFAMETHOX-TMP 800-160MG 1 EACH TAB PO SCH ×2 (09:33→20:50)
--- NOTE | 2017-12-30 10:36 | P.PN ---
Subjective Progress Note Date: 12/30/17 Principal diagnosis: SOB Patient going for repeat bronchoscopy procedure today. Shortness of breath is improved today. Objective - Vital Signs Vital signs: Vital Signs Temp 98.3 F 12/30/17 05:53 Pulse 91 12/30/17 08:00 Resp 18 12/30/17 08:00 BP 122/70 12/30/17 05:53 Pulse Ox 95 12/30/17 05:53 Intake & Output 12/29/17 12/30/17 12/30/17 18:59 06:59 18:59 Intake Total 480 Output Total 1800 1700 400 Balance -1800 -1220 -400 Weight 76.5 kg 77.5 kg Intake: Oral 480 Output: Urine 1800 1700 400 Straight 700 400 Other: Voiding Method Indwelling Catheter Indwelling Catheter Indwelling Catheter # Voids 3 - Exam General: Chronically ill appearing, no distress, appears at stated age, sitting topped forward Derm: multiple areas of ecchymosis, warm, dry Head: atraumatic, normocephalic, symmetric Eyes: EOMI, no lid lag, anicteric sclera Mouth: no lip lesion, mucus membranes moist Cardiovascular: S1S2 reg, no murmur, positive posterior tibial pulse bilateral, Lungs: decreased bs b/l bases with rhonich that clears with cough , no accessory muscle use Abdominal: soft, nontender to palpation, no guarding, no appreciable organomegaly Ext: no gross muscle atrophy, no edema, no contractures Neuro: CN II-XI grossly intact, no focal neuro deficits Psych: Alert, oriented, easily agitated - Labs CBC & Chem 7: 12/29/17 06:49 12/29/17 06:49 Labs: Abnormal Lab Results - Last 24 Hours (Table) 12/30/17 Range/Units 06:58 PT 13.3 H (9.0-12.0) sec INR 1.4 H (<1.2) Microbiology - Last 24 Hours (Table) 12/28/17 10:30 Gram Stain - Final Bronchial Washings - Random Bronchial Washings Culture - Final Assessment and Plan Plan: Right lower lobe pneumonia (improving from recent discharge), recent bilateral pulmonary embolism, pulmonary fibrosis -S/P Bronch 12/28--mucus plugs consistent with MRSA pneumonia, will go for repeat bronchoscopy procedure today -Bronchial washings cultures showed normal respiratory miriam -Continue bronchodilators -Continue Bactrim, as most of that was isolated is resistant to penicillin and sensitive to Bactrim -Continue pulmonary hygiene Recent pulmonary embolism with supratherapeutic INR -Resume coumadin, follow INR Chronic microcytic anemia -Appears to be anemia of chronic disease -Follow outpatient CBCs Hypertension - soft BP -continue to hold metoprolol Hypoactive bladder Likely secondary to multiple sedatives used during the procedure in addition to the hospitalization Valenzuela catheter inserted We'll discontinue after repeat bronchoscopy completed Chronic diastolic CHF with EF 50-55% - demadex started on 12/26 - BB on hold due to soft Blood pressures - not chronically on ACEI Severe debility with poor functional status due to deconditioning -Continue physical therapy -Patient has refused subacute rehab earlier -Increase activity as tolerated DVT prophylaxis: on Coumadin Discussed with: Patient Anticipated discharge: in [address]: Home with home health A total of 35 minutes was spent on the care of this complex patient more than 50 % of the time was spent in counseling and care coordination.
[2017-12-30] MEDS: SYMBICORT 160-4.5 MCG INHALER INHALATION SCH ×2 (10:54→19:51)
[2017-12-30] MEDS ORDERED: LACTATED RINGERS 1,000 ML IV ONE (13:01)
[2017-12-30] MEDS ORDERED: PROPOFOL 10 MG/ML 20 ML VIAL IV ONE (13:01)
--- NOTE | 2017-12-30 13:06 | P.PN ---
Subjective Progress Note Date: 12/30/17 This is a pleasant 77-year-old gentleman who follows with Dr. Gonzalez as his primary care physician. He has a history of myocardial infarction, diastolic congestive heart failure, DVT, recent admission to [facility] for MRSA pneumonia with an extended stay subsequent transfer to inpatient rehabilitation and then discharged home. He had been readmitted here 12/10/2017 for congestive heart failure and left lower lobe pneumonia. His echocardiogram had revealed preserved left ventricular systolic function with ejection fraction 50- 55%. There is mild aortic sclerosis, moderate mitral regurgitation. He was also found to have bilateral pulmonary embolism and has been maintained on warfarin in the outpatient setting. He was subsequently discharged on 2017. He presented here to the emergency room again yesterday with continued complaints of shortness of breath. His INR was supratherapeutic initially 5.9. Today 7.1. He is seen in consultation on the selective care unit. He is awake and alert in no acute distress. He is maintaining good O2 saturations in the mid 90s on 2 L/m per nasal cannula. He has been afebrile. Remaining hemodynamically stable. Chest x-rays reveals bilateral patchy infiltrates but still the same as compared to previous admission. No obvious heart failure. Small pleural effusions. White count 10.2. Hemoglobin 9.8. Creatinine 0.90. Troponins negative 3. ProBNP 307. The patient is seen today 12/22/2017 in follow-up on the selective care unit. He remains awake and alert in no acute distress. He is breathing better today as compared to yesterday. Chest x-ray about the same. Maintaining good O2 saturations in the 90s on 2 L/m per nasal cannula. He is continued on vancomycin and Zosyn which could be D escalated. Blood cultures reveal no growth. INR remains high at 7.3. Creatinine 1.25. The patient is seen again today 12/23/2017 in follow-up on the selective care unit. He is currently sitting up in a chair at the bedside. He denies any worsening shortness of breath, cough or congestion. He is maintaining good O2 saturations in the upper 90s on 2 L/m per nasal cannula. He is afebrile. Hemodynamically stable. White count 8.9. Hemoglobin 8.9. INR 6.4. Creatinine 1.10. He is currently on bronchodilators and Augmentin. The patient is seen again today 12/24/2017 in follow-up on the selective care unit. He is currently sitting up in a chair at the bedside. He remains quite weak but has refused to go to a subacute rehabilitation. He currently denies any shortness of breath, cough or congestion. He is maintaining good O2 saturations in the mid 90s on room air he's been afebrile. Current INR 5.3. Creatinine 1.15. The patient was reevaluated today 12/27/2017 with complaints of continued shortness of breath. Still not feeling much better. He does have a loose nonproductive cough. No chills or night sweats. He is maintaining good O2 saturations in the mid 90s on 2 L/m per nasal cannula. His been afebrile. He wanted medically stable. He has been maintained on DuoNeb inhalations, Symbicort, Ventolin without much improvement. INR 2.8. Sputum culture reveals no growth. On today's evaluation of a 2017, the patient is still having shortness of breath. We are ready to proceed with bronchoscopy and therapeutic it was suctioning and bronchioloalveolar lavage. The patient has no fever or chills. He is on oxygen at 2 L/m nasal cannula and the saturation is around above 90%. No chest pain. He is on DuoNeb nebulized treatments and he is also on Symbicort. Further antibiotic coverage the patient is on Augmentin. The patient was given vitamin K yesterday 2 mg INR today is down to 1.8. As such, the patient will be taken to the bronchoscopy suite to undergo a therapeutic airway suctioning and the bronchioloalveolar lavage and further recommendations are to follow based on the findings. The patient is seen today 12/29/2017 in follow-up on the regular medical floor. He is currently resting quite comfortably in bed. He is awake and alert in no acute distress. He is quite improved today as compared to yesterday following his bronchoscopy. He was actually able to sleep up in the bed last night which he hasn't been able to do for quite some time. He did have a significant amount of thick, sticky secretions removed during the bronchoscopy. Both lungs and there are segments were all involved. He does continue with a loose nonproductive cough. This is improved but still not quite back to his baseline. Cultures are pending. He is maintaining good O2 saturations in the 90s on 2 L/m per nasal cannula now. He is continued on Bactrim. On 12/30/2017, the patient remains stable and the plan is to repeat a bronchoscopy to evacuate any residual mucous plugs identified earlier on the bronchoscopy that was done on 12/28/2017. Note that the cultures came back all negative. Despite his nasal colonization with MRSA, the BAL showed normal microbial growth and there was no evidence of any bacterial or fungal infection at this point in time. The patient is still on Symbicort. The patient is on Bactrim. The patient is on DuoNeb nebulized treatments around the clock. White cell count is not elevated. INR is at 1.4. Objective - Vital Signs Vital signs: Vital Signs Temp 98.3 F 12/30/17 05:53 Pulse 94 12/30/17 11:06 Resp 18 12/30/17 08:00 BP 122/70 12/30/17 05:53 Pulse Ox 95 12/30/17 05:53 Intake & Output 12/29/17 12/30/17 12/30/17 18:59 06:59 18:59 Intake Total 480 Output Total 1800 1700 800 Balance -1800 -1220 -800 Weight 76.5 kg 77.5 kg Intake: Oral 480 Output: Urine 1800 1700 800 Straight 700 400 Other: Voiding Method Indwelling Catheter Indwelling Catheter Indwelling Catheter # Voids 3 - Exam - Constitutional General appearance: average body habitus, disheveled, no acute distress - EENT Eyes: EOMI, PERRLA ENT: hard of hearing Ears: bilateral: normal - Neck Neck: normal ROM Carotids: bilateral: upstroke normal Thyroid: bilateral: normal size - Respiratory Respiratory: left: rhonchi, bilateral: rales - Cardiovascular Rhythm: regular Heart sounds: normal: S1, S2 - Gastrointestinal General gastrointestinal: normal bowel sounds - Integumentary Integumentary: normal turgor - Neurologic Neurologic: CNII-XII intact - Musculoskeletal Musculoskeletal: generalized weakness - Psychiatric Psychiatric: A&O x's 3, appropriate affect, intact judgment & insight - Labs CBC & Chem 7: 12/29/17 06:49 12/29/17 06:49 Labs: Abnormal Lab Results - Last 24 Hours (Table) 08/23/18 Range/Units 06:58 PT 13.3 H (9.0-12.0) sec INR 1.4 H (<1.2) Microbiology - Last 24 Hours (Table) 12/28/17 10:30 Gram Stain - Final Bronchial Washings - Random Bronchial Washings Culture - Final Assessment and Plan Plan: Assessment 1 recent MRSA pneumonia with ongoing difficulty breathing. The follow-up CAT scan was done and showed some minimal residual groundglass changes with small bilateral pleural effusions, overall picture is improved compared to previous CAT scan of the chest. Nevertheless the patient continues to be symptomatic and I suspect significant amount of mucus inspissation/plugging within the airways. Based on that, at therapeutic it was suctioning was done and copious amount of retained mucous plugs was aspirated from the patient's airway. The cultures came back all negative for any microbial growth. I did have a suspicion for recurrent MRSA infection. The cultures came back negative. Clinically the patient improved. He would have another bronchoscope to remove any residual mucous plugs. Ultimate discharge in the next 24-48 hours if his conditions continued to improve. 2 recent hospitalization for pulmonary embolism bilateral and patient is currently on warfarin INR is at 1.4, the patient is still off anticoagulation 3 lower extremity edema the left negative for DVT of admission 4 recent hospitalization at [facility] for MRSA pneumonia 5 coronary artery disease with previous DE 6 CHF with diastolic failure Plan We'll do a second bronchoscope for therapeutic airway suctioning and removal of mucous plugs. Resume anti-coagulation following that and discharge planning is to follow.
[2017-12-30] MEDS ORDERED: LIDOCAINE 2% INJ 20 MG/ML INTRATRACH ONE (13:15)
--- NOTE | 2017-12-30 13:31 | P.PCN ---
Date of Procedure: 12/30/17 Preoperative Diagnosis: Extensive mucus plugging/COPD/tracheal bronchomalacia Postoperative Diagnosis: Same Procedure(s) Performed: Flexible bronchoscopy, therapeutic airway suctioning, evacuation a mucous plugs Anesthesia: MAC Surgeon: Jennifer Murillo IV fluids (ml): 0 Pathology: none sent Condition: stable Disposition: floor Operative Findings: This is a second bronchoscopy over the past 48 hours on this patient has extensive monitor mucous plugging that was identified on original bronchoscope that was done on 12/28/2017. The cultures from that original bronchoscope were negative. Nevertheless the patient continued to have some degree of shortness of breath and I was sure that there was some residual mucous plugs left over from the previous bronchoscope. Based on that, I went in today for a second look. This procedure was done under conscious sedation. After achieving adequate sedation flexible bronchoscope was inserted to the left nostril was advanced upper airway. The upper airway structures were all within normal limits and this included the larynx pharynx epiglottis vocal cords and arytenoids and vallecula. A total of 2 mL of 1% lidocaine was applied to the vocal cords and following that the patient was intubated using the flexible bronchoscope. Similar findings of tracheal bronchomalacia was identified during the airway inspection. There was mucous plugs however it was considerably less compared to what we saw 2 days ago. Therapeutic airway suctioning was done. There was further irrigated with saline and following that the secretions were suctioned out using the flexible bronchoscope. At the end of the procedure excellent airway patency was achieved and there was a patent and there were clear of any residual secretions. The patient tried the procedure well. The patient chest recovery in stable condition.
[2017-12-30] MEDS: ACETAMINOPHEN TAB 325 MG TAB PO PRN (14:16)
[2017-12-30] MEDS: FAMOTIDINE 20 MG TAB PO SCH (14:40)
[2017-12-30] MEDS: FINASTERIDE 5 MG TAB PO SCH (14:40)
[2017-12-30] MEDS: TORSEMIDE 20 MG TAB PO SCH (14:41)
[2017-12-30] MEDS: ASCORBIC ACID 500 MG TAB PO SCH (14:41)
[2017-12-30] MEDS: CYANOCOBALAMIN 500 MCG TAB PO SCH (14:41)
[2017-12-30] MEDS: ASPIRIN 81 MG PO SCH (14:41)
[2017-12-30] MEDS: FERROUS SULFATE 325 MG TAB PO SCH ×2 (14:41→20:50)
[2017-12-30] MEDS: LACTATED RINGERS 1,000 ML IV SCH (15:02)
[2017-12-30] MEDS ORDERED: WARFARIN 5 MG TAB PO ONE (18:00)
[2017-12-31] MEDS: ACETAMINOPHEN TAB 325 MG TAB PO PRN ×2 (03:21→23:36)
[2017-12-31] MEDS: IPRATROPIUM-ALBUTEROL 3 ML NEB INHALATION SCH ×4 (08:04→20:06)
[2017-12-31] MEDS: SYMBICORT 160-4.5 MCG INHALER INHALATION SCH ×2 (08:04→20:06)
[2017-12-31] MEDS: FAMOTIDINE 20 MG TAB PO SCH (08:19)
[2017-12-31] MEDS: ASPIRIN 81 MG PO SCH (08:19)
[2017-12-31] MEDS: CYANOCOBALAMIN 500 MCG TAB PO SCH (08:19)
[2017-12-31] MEDS: SULFAMETHOX-TMP 800-160MG 1 EACH TAB PO SCH ×2 (08:19→21:14)
[2017-12-31] MEDS: ASCORBIC ACID 500 MG TAB PO SCH (08:19)
[2017-12-31] MEDS: FERROUS SULFATE 325 MG TAB PO SCH ×2 (08:19→21:14)
[2017-12-31] MEDS: TORSEMIDE 20 MG TAB PO SCH (08:19)
[2017-12-31] MEDS: FINASTERIDE 5 MG TAB PO SCH (08:20)
[2017-12-31 08:40] LABS: Anisocytosis Slight; Basophils # (A) 0.1 k/uL (0-0.2); Basophils % (A) 1 %; Eosinophils # (A) 1.4 k/uL (0-0.7); Eosinophils % (A) 16 %; HCT 28.8 % (39.0-53.0); HGB 8.7 gm/dL (13.0-17.5); Hypochromasia Marked; Lymphocytes # (A) 1.4 k/uL (1.0-4.8); Lymphocytes % (A) 16 %; MCH 24.8 pg (25.0-35.0); MCHC 30.3 g/dL (31.0-37.0); MCV 81.6 fL (80.0-100.0); Mean Platelet Volume 6.4; Monocytes # (A) 0.9 k/uL (0-1.0); Monocytes % (A) 10 %; Neutrophils # (A) 4.7 k/uL (1.3-7.7); Neutrophils % (A) 54 %; Platelet Count 277 k/uL (150-450); RBC 3.52 m/uL (4.30-5.90); RDW 17.7 % (11.5-15.5); WBC 8.8 k/uL (3.8-10.6)
[2017-12-31 08:45] LABS: INR 1.7 (<1.2); Prothrombin Time 15.2 sec (9.0-12.0)
[2017-12-31 08:56] LABS: Calcium 9.1 mg/dL (8.4-10.2); Magnesium 2.1 mg/dL (1.6-2.3); Potassium 4.8 mmol/L (3.5-5.1)
--- NOTE | 2017-12-31 14:15 | P.PN ---
Subjective Progress Note Date: 12/31/17 Principal diagnosis: Acute exacerbation of diastolic congestive heart failure, left lower lobe infiltrate with recent history of MRSA pneumonia, anemia. This is a pleasant 77-year-old gentleman who follows with Dr. Gonzalez as his primary care physician. He has a history of myocardial infarction, diastolic congestive heart failure, DVT, recent admission to [facility] for MRSA pneumonia with an extended stay subsequent transfer to inpatient rehabilitation and then discharged home. He had been readmitted here 12/10/2017 for congestive heart failure and left lower lobe pneumonia. His echocardiogram had revealed preserved left ventricular systolic function with ejection fraction 50- 55%. There is mild aortic sclerosis, moderate mitral regurgitation. He was also found to have bilateral pulmonary embolism and has been maintained on warfarin in the outpatient setting. He was subsequently discharged on 2017. He presented here to the emergency room again yesterday with continued complaints of shortness of breath. His INR was supratherapeutic initially 5.9. Today 7.1. He is seen in consultation on the selective care unit. He is awake and alert in no acute distress. He is maintaining good O2 saturations in the mid 90s on 2 L/m per nasal cannula. He has been afebrile. Remaining hemodynamically stable. Chest x-rays reveals bilateral patchy infiltrates but still the same as compared to previous admission. No obvious heart failure. Small pleural effusions. White count 10.2. Hemoglobin 9.8. Creatinine 0.90. Troponins negative 3. ProBNP 307. The patient is seen today 12/22/2017 in follow-up on the selective care unit. He remains awake and alert in no acute distress. He is breathing better today as compared to yesterday. Chest x-ray about the same. Maintaining good O2 saturations in the 90s on 2 L/m per nasal cannula. He is continued on vancomycin and Zosyn which could be D escalated. Blood cultures reveal no growth. INR remains high at 7.3. Creatinine 1.25. The patient is seen again today 12/23/2017 in follow-up on the selective care unit. He is currently sitting up in a chair at the bedside. He denies any worsening shortness of breath, cough or congestion. He is maintaining good O2 saturations in the upper 90s on 2 L/m per nasal cannula. He is afebrile. Hemodynamically stable. White count 8.9. Hemoglobin 8.9. INR 6.4. Creatinine 1.10. He is currently on bronchodilators and Augmentin. The patient is seen again today 12/24/2017 in follow-up on the selective care unit. He is currently sitting up in a chair at the bedside. He remains quite weak but has refused to go to a subacute rehabilitation. He currently denies any shortness of breath, cough or congestion. He is maintaining good O2 saturations in the mid 90s on room air he's been afebrile. Current INR 5.3. Creatinine 1.15. The patient was reevaluated today 12/27/2017 with complaints of continued shortness of breath. Still not feeling much better. He does have a loose nonproductive cough. No chills or night sweats. He is maintaining good O2 saturations in the mid 90s on 2 L/m per nasal cannula. His been afebrile. He wanted medically stable. He has been maintained on DuoNeb inhalations, Symbicort, Ventolin without much improvement. INR 2.8. Sputum culture reveals no growth. On today's evaluation of a 2017, the patient is still having shortness of breath. We are ready to proceed with bronchoscopy and therapeutic it was suctioning and bronchioloalveolar lavage. The patient has no fever or chills. He is on oxygen at 2 L/m nasal cannula and the saturation is around above 90%. No chest pain. He is on DuoNeb nebulized treatments and he is also on Symbicort. Further antibiotic coverage the patient is on Augmentin. The patient was given vitamin K yesterday 2 mg INR today is down to 1.8. As such, the patient will be taken to the bronchoscopy suite to undergo a therapeutic airway suctioning and the bronchioloalveolar lavage and further recommendations are to follow based on the findings. The patient is seen today 12/29/2017 in follow-up on the regular medical floor. He is currently resting quite comfortably in bed. He is awake and alert in no acute distress. He is quite improved today as compared to yesterday following his bronchoscopy. He was actually able to sleep up in the bed last night which he hasn't been able to do for quite some time. He did have a significant amount of thick, sticky secretions removed during the bronchoscopy. Both lungs and there are segments were all involved. He does continue with a loose nonproductive cough. This is improved but still not quite back to his baseline. Cultures are pending. He is maintaining good O2 saturations in the 90s on 2 L/m per nasal cannula now. He is continued on Bactrim. On 12/30/2017, the patient remains stable and the plan is to repeat a bronchoscopy to evacuate any residual mucous plugs identified earlier on the bronchoscopy that was done on 12/28/2017. Note that the cultures came back all negative. Despite his nasal colonization with MRSA, the BAL showed normal microbial growth and there was no evidence of any bacterial or fungal infection at this point in time. The patient is still on Symbicort. The patient is on Bactrim. The patient is on DuoNeb nebulized treatments around the clock. White cell count is not elevated. INR is at 1.4. The patient was seen again today 12/31/2017 in follow-up on the regular medical floor. He did undergo a second bronchoscopy with BAL yesterday and the rest of the mucous was removed. He is currently resting fairly comfortably in bed. He still has some complaints of dyspnea on exertion. His cough is dry and nonproductive now. He is maintaining O2 saturations in the 90s on 3 L/m per nasal cannula. He's been afebrile. No growth from the bronchial washings thus far. He is continued on Bactrim. Objective - Vital Signs Vital signs: Vital Signs Temp 98.7 F 12/31/17 06:05 Pulse 87 12/31/17 12:08 Resp 18 12/31/17 08:00 BP 104/60 12/31/17 06:05 Pulse Ox 96 12/31/17 06:05 Intake & Output 12/30/17 12/31/17 12/31/17 18:59 06:59 18:59 Intake Total 680 1080 Output Total 2650 1500 2100 Balance -19691500 -0 Weight 73.5 kg Intake: IV 200 Oral 480 1080 Output: Urine 2650 1500 2100 Straight 800 1500 600 Other: Voiding Method Indwelling Catheter Indwelling Catheter Indwelling Catheter # Voids 1 - Exam - Constitutional General appearance: average body habitus, disheveled, no acute distress - EENT Eyes: EOMI, PERRLA ENT: hard of hearing Ears: bilateral: normal - Neck Neck: normal ROM Carotids: bilateral: upstroke normal Thyroid: bilateral: normal size - Respiratory Respiratory: Diminished. - Cardiovascular Rhythm: regular Heart sounds: normal: S1, S2 - Gastrointestinal General gastrointestinal: normal bowel sounds - Integumentary Integumentary: normal turgor - Neurologic Neurologic: CNII-XII intact - Musculoskeletal Musculoskeletal: generalized weakness - Psychiatric Psychiatric: A&O x's 3, appropriate affect, intact judgment & insight - Labs CBC & Chem 7: 12/31/17 07:51 12/31/17 07:51 Labs: Abnormal Lab Results - Last 24 Hours (Table) 12/31/17 12/31/17 12/31/17 Range/Units 07:51 07:51 07:51 RBC 3.52 L (4.30-5.90) m/uL Hgb 8.7 L (13.0-17.5) gm/dL Hct 28.8 L (39.0-53.0) % MCH 24.8 L (25.0-35.0) pg MCHC 30.3 L (31.0-37.0) g/dL RDW 17.7 H (11.5-15.5) % Eosinophils # 1.4 H (0-0.7) k/uL PT 15.2 H (9.0-12.0) sec INR 1.7 H (<1.2) Carbon Dioxide 32 H (22-30) mmol/L BUN 22 H (9-20) mg/dL Creatinine 1.31 H (0.66-1.25) mg/dL Microbiology - Last 24 Hours (Table) 12/28/17 10:30 Gram Stain - Final Bronchial Washings - Random Bronchial Washings Culture - Final Assessment and Plan Assessment: Impression: #1 Dyspnea, multifactorial secondary to acute exacerbation of diastolic congestive heart failure, left lower lobe infiltrate with recent history of MRSA pneumonia, anemia. Suspect possible healthcare acquired pneumonia related status post bronchoscopy with BAL x 2. Cultures are pending. #2 Recent admission to the hospital and found to have bilateral pulmonary emboli , anticoagulated with warfarin. Therapeutic current INR 1.7. #3 Chronic anemia current hemoglobin 8.7. #4 Left lower extremity edema, negative for DVT on previous admission. #5 Recent prolonged hospitalization at [facility] for acute respiratory failure secondary to MRSA pneumonia. #6 History of myocardial infarction. #7 History of diastolic congestive heart failure. Plan: The patient was seen and evaluated by Dr. Murillo. The patient is improved from the pulmonary standpoint. Bronchial wash cultures pending. Complete a course of Bactrim. Continue Symbicort and DuoNeb's.. I, the cosigning physician, performed a history & physical examination of the patient. Lungs sounds diminished. Maintaining good O2 saturations in the 90s on 2 L/m per nasal cannula. I discussed the assessment and plan of care with my nurse practitioner, Stephania Rose. I attest to the above consultation as dictated by her.
--- NOTE | 2017-12-31 15:09 | P.PN ---
Subjective Progress Note Date: 12/31/17 Principal diagnosis: SOB Patient is feeling much better. Still having cough, shortness of breath is improved. He still has a Valenzuela catheter. Objective - Vital Signs Vital signs: Vital Signs Temp 98.4 F 12/31/17 14:07 Pulse 98 12/31/17 14:07 Resp 18 12/31/17 14:07 BP 95/58 12/31/17 14:07 Pulse Ox 84 L 12/31/17 14:42 Intake & Output 12/30/17 12/31/17 12/31/17 18:59 06:59 18:59 Intake Total 680 1080 Output Total 2650 1500 2100 Balance -1969 -1500 -1020 Weight 73.5 kg Intake: IV 200 Oral 480 1080 Output: Urine 2650 1500 2100 Straight 800 1500 600 Other: Voiding Method Indwelling Catheter Indwelling Catheter Indwelling Catheter # Voids 1 - Exam General: Chronically ill appearing, no distress, appears at stated age, sitting topped forward Derm: multiple areas of ecchymosis, warm, dry Head: atraumatic, normocephalic, symmetric Eyes: EOMI, no lid lag, anicteric sclera Mouth: no lip lesion, mucus membranes moist Cardiovascular: S1S2 reg, no murmur, positive posterior tibial pulse bilateral, Lungs: decreased bs b/l bases with rhonich that clears with cough , no accessory muscle use Abdominal: soft, nontender to palpation, no guarding, no appreciable organomegaly Ext: no gross muscle atrophy, no edema, no contractures Neuro: CN II-XI grossly intact, no focal neuro deficits Psych: Alert, oriented, easily agitated - Labs CBC & Chem 7: 12/31/17 07:51 12/31/17 07:51 Labs: Abnormal Lab Results - Last 24 Hours (Table) 12/31/17 12/31/17 12/31/17 Range/Units 07:51 07:51 07:51 RBC 3.52 L (4.30-5.90) m/uL Hgb 8.7 L (13.0-17.5) gm/dL Hct 28.8 L (39.0-53.0) % MCH 24.8 L (25.0-35.0) pg MCHC 30.3 L (31.0-37.0) g/dL RDW 17.7 H (11.5-15.5) % Eosinophils # 1.4 H (0-0.7) k/uL PT 15.2 H (9.0-12.0) sec INR 1.7 H (<1.2) Carbon Dioxide 32 H (22-30) mmol/L BUN 22 H (9-20) mg/dL Creatinine 1.31 H (0.66-1.25) mg/dL Microbiology - Last 24 Hours (Table) 12/28/17 10:30 Fungal Culture - Preliminary Bronchial Washings - Random Leia albicans Assessment and Plan Plan: Right lower lobe pneumonia (improving from recent discharge), recent bilateral pulmonary embolism, pulmonary fibrosis -S/P Bronch 12/28 and again on 12/30--according to pulmonary service mucus plugs consistent with MRSA pneumonia -Bronchial washings cultures showed normal respiratory miriam -Continue bronchodilators -Continue Bactrim, as most of that was isolated is resistant to penicillin and sensitive to Bactrim -Continue pulmonary hygiene Recent pulmonary embolism with supratherapeutic INR -Resume coumadin, follow INR Chronic microcytic anemia -Appears to be anemia of chronic disease -Follow outpatient CBCs Hypertension - soft BP -continue to hold metoprolol Hypoactive bladder Likely secondary to multiple sedatives used during the procedure in addition to the hospitalization Discontinue Valenzuela catheter to try to have him urinate by himself Chronic diastolic CHF with EF 50-55% - demadex started on 12/26 - BB on hold due to soft Blood pressures - not chronically on ACEI Severe debility with poor functional status due to deconditioning -Continue physical therapy -Call PT for reevaluation, he was evaluated by PT on the , that time home was recommended for discharge. -Increase activity as tolerated DVT prophylaxis: on Coumadin Discussed with: Patient Anticipated discharge: in [address]: Home with home health A total of 35 minutes was spent on the care of this complex patient more than 50 % of the time was spent in counseling and care coordination.
[2017-12-31] MEDS: LACTATED RINGERS 1,000 ML IV SCH (15:29)
[2017-12-31] MEDS ORDERED: WARFARIN 5 MG TAB PO ONE (18:00)
[2018-01-01 07:43] LABS: INR 2.8 (<1.2); Prothrombin Time 25.5 sec (9.0-12.0)
[2018-01-01] MEDS: SYMBICORT 160-4.5 MCG INHALER INHALATION SCH ×2 (08:35→20:05)
[2018-01-01] MEDS: IPRATROPIUM-ALBUTEROL 3 ML NEB INHALATION SCH ×4 (08:35→20:05)
[2018-01-01] MEDS: ASCORBIC ACID 500 MG TAB PO SCH (09:19)
[2018-01-01] MEDS: FINASTERIDE 5 MG TAB PO SCH (09:19)
[2018-01-01] MEDS: TORSEMIDE 20 MG TAB PO SCH (09:19)
[2018-01-01] MEDS: ASPIRIN 81 MG PO SCH (09:19)
[2018-01-01] MEDS: FAMOTIDINE 20 MG TAB PO SCH (09:19)
[2018-01-01] MEDS: FERROUS SULFATE 325 MG TAB PO SCH ×2 (09:19→21:31)
[2018-01-01] MEDS: CYANOCOBALAMIN 500 MCG TAB PO SCH (09:19)
[2018-01-01] MEDS: SULFAMETHOX-TMP 800-160MG 1 EACH TAB PO SCH ×2 (09:19→21:31)
[2018-01-01] MEDS: LACTATED RINGERS 1,000 ML IV SCH (14:51)
[2018-01-01] MEDS ORDERED: WARFARIN 2.5 MG TAB PO ONE (18:00)
[2018-01-01] MEDS: TAMSULOSIN 0.4 MG CAP.ER.24H PO SCH (21:32)
--- NOTE | 2018-01-01 23:50 | PN ---
PROGRESS NOTE DATE OF SERVICE: 01/01/2018. PRESENTING COMPLAINT: Short of breath, cough. INTERVAL HISTORY: This patient with multiple issues was admitted with CHF exacerbation, pneumonia, recent hospitalization. Patient also found to have bilateral pulmonary embolism. This admission, patient did undergo bronchoscopy and multiple mucous plugs were removed. The patient's breathing is better. He has a very slight cough. No sputum production. Eating better, sitting up on the bed. Late in the evening, patient did have urinary retention, found to have 800 mL. I did order a dose of Flomax and 1-time straight catheterization. REVIEW OF SYSTEMS: Done for constitutional, cardiovascular, GI, pulmonary; relevant findings as above. CURRENT MEDICATIONS: Reviewed that include p.o. Bactrim. EXAMINATION: Temperature 98, pulse 81, respirations 20, blood pressure 101/62, pulse ox 97% on 3L. GENERAL APPEARANCE: Sitting up in bed, awake. EYES: Pupils equal. Conjunctivae normal. HEENT: External nose and ears normal. Oral cavity normal. Decreased hearing. NECK: JVD not raised. Mass not palpable. RESPIRATORY: Effort increased. LUNGS: Diminished breath sounds. CARDIOVASCULAR: First and second sounds normal. No edema. ABDOMEN: Soft, nontender. Liver and spleen not palpable. PSYCHIATRY: Alert and oriented x3. Mood and affect were normal. INVESTIGATIONS: White count 8.48, hemoglobin 8.7, INR is 2.8. BUN 22, creatinine 1.31. ASSESSMENT: 1. Acute congestive heart failure exacerbation from diastolic dysfunction, ejection fraction 55%-60%, now clinically improved. 2. Moderate mitral regurgitation, nonrheumatic. 3. Severe rheumatoid arthritis, especially in both the hands. 4. Hard of hearing. 5. Coronary artery disease with prior history of myocardial infarction. 6. Benign prostatic hypertrophy with acute urinary retention. 7. Chronic insomnia, multifactorial. 8. Recent bilateral pulmonary embolism for which patient is on Coumadin. 9. Moderate mitral regurgitation, nonrheumatic. 10.Status post bronchoscopy. PLAN: At this point, given that the patient's creatinine is going up, will temporarily hold off the Demadex. I will also change the Bactrim DS to Omnicef. Care was discussed with the patient. MMODL / IJN: [id number] /
[2018-01-02] MEDS: ACETAMINOPHEN TAB 325 MG TAB PO PRN ×2 (05:12→23:49)
[2018-01-02] MEDS: IPRATROPIUM-ALBUTEROL 3 ML NEB INHALATION SCH ×4 (06:53→19:48)
[2018-01-02] MEDS: SYMBICORT 160-4.5 MCG INHALER INHALATION SCH ×2 (06:53→19:48)
[2018-01-02 08:50] LABS: Prothrombin Time 45.2 sec (9.0-12.0)
[2018-01-02] MEDS: ASPIRIN 81 MG PO SCH (09:32)
[2018-01-02] MEDS: CEFDINIR 300 MG CAP PO SCH ×2 (09:32→20:25)
[2018-01-02] MEDS: FERROUS SULFATE 325 MG TAB PO SCH ×2 (09:33→20:25)
[2018-01-02] MEDS: FAMOTIDINE 20 MG TAB PO SCH (09:33)
[2018-01-02] MEDS: CYANOCOBALAMIN 500 MCG TAB PO SCH (09:33)
[2018-01-02] MEDS: FINASTERIDE 5 MG TAB PO SCH (09:33)
[2018-01-02] MEDS: ASCORBIC ACID 500 MG TAB PO SCH (09:33)
[2018-01-02] MEDS ORDERED: WARFARIN 0.5 MG TAB PO ONE (18:00)
--- NOTE | 2018-01-02 18:50 | PN ---
PROGRESS NOTE DATE OF SERVICE: 01/02/18. PRESENTING COMPLAINT: Cough, short of breath. INTERVAL HISTORY: The patient is admitted with CHF exacerbation, pneumonia, also recently had bilateral pulmonary embolism. Doing much better. Breathing is getting better. Tolerating a diet better. The patient urinating better. REVIEW OF SYSTEMS: Done for constitutional, cardiovascular, GI, pulmonary; relevant findings as above. CURRENT MEDICATIONS: Reviewed that include Flomax, Omnicef. PHYSICAL EXAMINATION: Temperature 97.9, pulse 93, respiratory 20, blood pressure 101/65, pulse ox 98 percent on room air. GENERAL APPEARANCE: Sitting at the edge of the bed eating his meal. EYES: Pupils equal. Conjunctivae normal. HEENT: External appearance of nose and ears normal. Oral cavity normal. Decreased hearing. NECK: JVD not raised. Mass not palpable. RESPIRATORY: Effort normal. Lungs decreased breath sounds. CARDIOVASCULAR: First and second sounds, no edema. ABDOMEN: Soft, nontender. Liver and spleen not palpable. PSYCHIATRY: Alert and oriented x3. Mood and affect is normal. INVESTIGATIONS: INR is 5. ASSESSMENT: 1. Acute congestive heart failure exacerbation from diastolic dysfunction, EF 55 to 60%, now clinically stabilized. 2. Moderate mitral regurgitation, nonrheumatic. 3. Severe rheumatoid arthritis especially in both the hands. 4. Hard of hearing. 5. Coronary artery disease, prior history of myocardial infarction. 6. Benign prostatic hypertrophy with acute urinary retention. 7. Chronic insomnia, multifactorial. 8. Recent bilateral pulmonary embolism for which patient is on Coumadin. 9. Moderate mitral regurgitation, nonrheumatic. 10.Status post bronchoscopy. 11.Coumadin monitoring with INR supratherapeutic. No evidence of bleeding. PLAN: Patient's Coumadin has been held for right now. We will repeat BMP in the morning. INR in the morning. Care was discussed with the patient. MMODL / IJN: [id number] /
[2018-01-02] MEDS: TAMSULOSIN 0.4 MG CAP.ER.24H PO SCH (20:25)
[2018-01-03] MEDS: IPRATROPIUM-ALBUTEROL 3 ML NEB INHALATION PRN (05:53)
[2018-01-03] MEDS: IPRATROPIUM-ALBUTEROL 3 ML NEB INHALATION SCH ×4 (07:18→18:59)
[2018-01-03] MEDS: SYMBICORT 160-4.5 MCG INHALER INHALATION SCH ×2 (07:19→18:59)
[2018-01-03 07:43] LABS: INR 4.9 (<1.2); Prothrombin Time 43.9 sec (9.0-12.0)
[2018-01-03 08:01] LABS: Calcium 9.1 mg/dL (8.4-10.2); Potassium 4.6 mmol/L (3.5-5.1)
[2018-01-03] MEDS: FAMOTIDINE 20 MG TAB PO SCH (10:14)
[2018-01-03] MEDS: CYANOCOBALAMIN 500 MCG TAB PO SCH (10:14)
[2018-01-03] MEDS: FINASTERIDE 5 MG TAB PO SCH (10:14)
[2018-01-03] MEDS: ASPIRIN 81 MG PO SCH (10:14)
[2018-01-03] MEDS: FERROUS SULFATE 325 MG TAB PO SCH ×2 (10:14→20:18)
[2018-01-03] MEDS: ASCORBIC ACID 500 MG TAB PO SCH (10:14)
[2018-01-03] MEDS: CEFDINIR 300 MG CAP PO SCH ×2 (10:14→20:18)
[2018-01-03] MEDS ORDERED: WARFARIN 0.5 MG TAB PO ONE (18:00)
[2018-01-03] MEDS: TAMSULOSIN 0.4 MG CAP.ER.24H PO SCH (20:19)
[2018-01-03] MEDS: ACETAMINOPHEN TAB 325 MG TAB PO PRN (23:12)
--- NOTE | 2018-01-03 23:15 | PN ---
PROGRESS NOTE DATE OF SERVICE: 01/03/2018. PRESENTING COMPLAINT: Tired. INTERVAL HISTORY: Patient was admitted with CHF exacerbation, pneumonia and recently bilateral pulmonary embolism. Patient has been stable. Breathing is stable. Patient does not want to go home. Discussed with Stephania Gtz. Patient has been cleared. Patient does not feel comfortable going out. He wants to get transferred to [facility]. REVIEW OF SYSTEMS: Done for constitutional, cardiovascular, GI, pulmonary; relevant findings as above. CURRENT MEDICATIONS: Reviewed. PHYSICAL EXAMINATION: Examination temperature 98.2, pulse 107, respiration 16, blood pressure 111/64, pulse ox 96% on 4 L. GENERAL APPEARANCE: Sitting at the edge of bed. Comfortable. EYES: Pupils equal. Conjunctivae normal. HEENT: External appearance of nose and ears normal. Oral cavity normal. Decreased hearing. NECK: JVD not raised. Mass not palpable. RESPIRATORY: Effort normal. LUNGS: Decreased breath sounds. CARDIOVASCULAR: First and second sounds normal. No edema. ABDOMEN: Soft, non-tender. Liver and spleen not palpable. PSYCHIATRY: Alert and oriented x3. Mood and affect slightly anxious-appearing. INVESTIGATIONS: INR 4.9, potassium 4.6, BUN 26, creatinine 1.0. ASSESSMENT: 1. Acute congestive heart failure exacerbation from diastolic dysfunction, ejection fraction 55% to 60%, stabilized. 2. Moderate mitral regurgitation, non-rheumatic. 3. Severe rheumatoid arthritis, especially in both the hands. 4. Hard of hearing. 5. Coronary artery disease with prior history of myocardial infarction. 6. Benign prostatic hypertrophy with acute urinary retention. 7. Chronic insomnia, multifactorial. 8. Recent bilateral pulmonary embolism, for which patient is on Coumadin. 9. Moderate mitral regurgitation. 10.Status post bronchoscopy. 11.Coumadin monitoring. No evidence of bleeding. PLAN: I talked to Pulmonary from their standpoint. Dr. Murillo has spoken to the patient's daughter several times. This is the patient's new baseline. Patient just feels very insecure to get discharged. Home arrangements are being made for PT/OT. Patient can be discharged home. Daughter is requesting that he go home tomorrow, when his other daughter will be back. This was conveyed to the patient and the school social worker. Looking at patient going home tomorrow. MMODL / IJN: [id number] /
[2018-01-04] MEDS: SYMBICORT 160-4.5 MCG INHALER INHALATION SCH (07:00)
[2018-01-04] MEDS: IPRATROPIUM-ALBUTEROL 3 ML NEB INHALATION SCH ×3 (07:00→16:35)
[2018-01-04] MEDS: FAMOTIDINE 20 MG TAB PO SCH (07:54)
[2018-01-04] MEDS: FERROUS SULFATE 325 MG TAB PO SCH (07:54)
[2018-01-04] MEDS: CEFDINIR 300 MG CAP PO SCH (07:54)
[2018-01-04] MEDS: FINASTERIDE 5 MG TAB PO SCH (07:54)
[2018-01-04] MEDS: ASCORBIC ACID 500 MG TAB PO SCH (07:54)
[2018-01-04] MEDS: CYANOCOBALAMIN 500 MCG TAB PO SCH (07:54)
[2018-01-04] MEDS: ASPIRIN 81 MG PO SCH (07:56)
[2018-01-04 08:16] LABS: Anion Gap 6 mmol/L; Blood Urea Nitrogen 22 mg/dL (9-20); Calcium 9.2 mg/dL (8.4-10.2); Carbon Dioxide 29 mmol/L (22-30); Chloride 105 mmol/L (98-107); Glucose 92 mg/dL (74-99); Potassium 4.7 mmol/L (3.5-5.1); Sodium 140 mmol/L (137-145)
[2018-01-04 08:17] LABS: INR 3.5 (<1.2); Prothrombin Time 31.7 sec (9.0-12.0)
[2018-01-04 15:39] VITALS: BP 110/60; RESP 18; TEMP 97.6
[2018-01-04 16:16] VITALS: PULSE 95
[2018-01-04] MEDS ORDERED: WARFARIN 2.5 MG TAB PO ONE (18:00)
--- NOTE | 2018-01-05 00:14 | DS ---
DISCHARGE SUMMARY DATE OF ADMISSION: 12/20/2017 DATE OF DISCHARGE: 01/04/2018 FINAL DIAGNOSES: 1. Acute congestive heart failure exacerbation from diastolic dysfunction, ejection fraction 55% to 60%. 2. Moderate mitral regurgitation, nonrheumatic. 3. Severe rheumatoid arthritis, especially in both the hands. 4. Hard of hearing. 5. Coronary artery disease with prior history of myocardial infarction. 6. Benign prostatic hypertrophy with acute urinary retention. 7. Chronic insomnia, multifactorial. 8. Recent bilateral pulmonary embolism for which the patient is on Coumadin. 9. Moderate mitral regurgitation. 10.Coumadin monitoring. 11.Procedure bronchoscopy. 12.Possible pneumonia, healthcare acquired pneumonia. CONSULTATIONS: Dr. Murillo from Pulmonary. HOSPITAL COURSE: This patient presented with yet again shortness of breath, cough, and felt to have pneumonia and CHF exacerbation. The patient did undergo bronchoscopy. Did feel better after the procedure, mostly normal respiratory miriam was obtained. It was explained to the patient that this is a new baseline. The patient is able to tolerate her diet. The patient normally does not sleep well. He was told to rest on the table and sleep. On the day of discharge I did speak to patient's daughter, Amber and also spoken earlier to the patient. PHYSICAL EXAMINATION: Temperature 97.6, pulse 18, blood pressure 110/60. LUNGS: Decreased breath sounds. PSYCH: A and O x3. CARDIOVASCULAR: First and second sounds normal. DISCHARGE MEDICATIONS: 1. Ventolin 2.5 q.6h. 2. Vitamin C 500 mg daily. 3. Aspirin 81 mg p.o. daily. 4. Proscar 5 mg p.o. daily. 5. Meloxicam 50 mg p.o. daily. 6. Flomax 0.4 mg p.o. daily. 7. Symbicort 160/4.5, 2 puffs b.i.d. 8. Iron 65 mg and 325 p.o. b.i.d. 9. Vitamin B12 500 mcg p.o. daily. 10.Pepcid 20 mg b.i.d. 11.Coumadin 2.5 mg starting tomorrow. 12.Omnicef 300 mg p.o. b.i.d. 10 capsules. 13.Lasix 40 mg p.o. daily. 14.DuoNeb q.i.d. FOLLOWUP: With Cardiology in 1 week. Follow up with Dr. Harmeet Gonzalez on 01/11/2018. Follow up with Dr. Murillo in 1 week. DISPOSITION: Home. Discharge planning more than 35 minutes. MMODL / IJN: [id number] /
== END 2018-01-04 18:05 | disposition home health service (06) | DRG 166 ==
LOC: EC 19:54 → 6SEL 21:48 → 5MS5E 12-27 17:26
PROVIDERS: ADMIT Hospitalist; ATTEND Hospitalist
PROC: 0BC18ZZ Extirpation of Matter from Trachea, Via Natural or Artificial Opening Endoscopic (ICD-10-PCS; 2017-12-28)
PROC: 0BCB8ZZ Extirpation of Matter from Left Lower Lobe Bronchus, Via Natural or Artificial Opening Endoscopic (ICD-10-PCS; 2017-12-28)
PROC: 0BC48ZZ Extirpation of Matter from Right Upper Lobe Bronchus, Via Natural or Artificial Opening Endoscopic (ICD-10-PCS; 2017-12-28)
PROC: 0BC88ZZ Extirpation of Matter from Left Upper Lobe Bronchus, Via Natural or Artificial Opening Endoscopic (ICD-10-PCS; 2017-12-28)
PROC: 0BC38ZZ Extirpation of Matter from Right Main Bronchus, Via Natural or Artificial Opening Endoscopic (ICD-10-PCS; 2017-12-28)
PROC: 0BC78ZZ Extirpation of Matter from Left Main Bronchus, Via Natural or Artificial Opening Endoscopic (ICD-10-PCS; 2017-12-28)
PROC: 0BC68ZZ Extirpation of Matter from Right Lower Lobe Bronchus, Via Natural or Artificial Opening Endoscopic (ICD-10-PCS; 2017-12-28)
PROC: 0B9L8ZX Drainage of Left Lung, Via Natural or Artificial Opening Endoscopic, Diagnostic (ICD-10-PCS; principal; 2017-12-28 10:00)
PROC: 0B9L8ZX Drainage of Left Lung, Via Natural or Artificial Opening Endoscopic, Diagnostic (ICD-10-PCS; 2017-12-30)
DX: J18.9 Pneumonia, unspecified organism (principal); I50.33 Acute on chronic diastolic (congestive) heart failure; J96.01 Acute respiratory failure with hypoxia; T17.890A Other foreign object in other parts of respiratory tract causing asphyxiation, initial encounter; J84.10 Pulmonary fibrosis, unspecified; I11.0 Hypertensive heart disease with heart failure; J43.9 Emphysema, unspecified; J98.09 Other diseases of bronchus, not elsewhere classified; M06.9 Rheumatoid arthritis, unspecified; Z66 Do not resuscitate; D50.9 Iron deficiency anemia, unspecified; T45.515A Adverse effect of anticoagulants, initial encounter; I08.0 Rheumatic disorders of both mitral and aortic valves; R79.1 Abnormal coagulation profile; I25.10 Atherosclerotic heart disease of native coronary artery without angina pectoris; M10.9 Gout, unspecified; I25.2 Old myocardial infarction; H91.90 Unspecified hearing loss, unspecified ear; N40.1 Benign prostatic hyperplasia with lower urinary tract symptoms; R33.8 Other retention of urine; F51.04 Psychophysiologic insomnia; M21.949 Unspecified acquired deformity of hand, unspecified hand; Y95 Nosocomial condition; Z79.82 Long term (current) use of aspirin; Z79.1 Long term (current) use of non-steroidal anti-inflammatories (NSAID); Z79.51 Long term (current) use of inhaled steroids; Z79.01 Long term (current) use of anticoagulants; Z79.899 Other long term (current) drug therapy; Z86.14 Personal history of Methicillin resistant Staphylococcus aureus infection; Z86.718 Personal history of other venous thrombosis and embolism; Z86.711 Personal history of pulmonary embolism; Z87.01 Personal history of pneumonia (recurrent)
CPT/HCPCS: 31624; 31645; 36415; 71045; 71250; 80048; 80053; 80061; 82550; 82553; 82728; 83540; 83550; 83735; 83880; 84145; 84484; 85025; 85027; 85045; 85049; 85379; 85610; 85652; 85730; 86140; 87040; 87070; 87077; 87102; 87116; 87186; 87205; 87206; 87252; 87496; 87498; 87502; 87529; 87634; 87798; 88108; 88305; 93005; 94150; 94640; 94760; 96365; 96375; 99285